=== PATIENT | female | born 1960 | race African-American/Black ===

== ENCOUNTER 2019-07-07 16:16 | Observation (INO) | payer MEDICARE ==
[~2019-07-07] VITALS: Ht 172.7 cm; Wt 190.5 kg
--- NOTE | 2019-07-07 17:24 | Diagnostic Imaging Report ---
Chest, single frontal view History: Weakness Comparison: No comparisons available for review IMPRESSION: The heart is within normal limits of size. The mediastinal and hilar contours are unremarkable. There is no focal consolidation, pleural effusion, or pneumothorax. No acute osseous abnormalities. Signed by: Alok Zamora MD on 07/07/2019 5:22 PM
--- NOTE | 2019-07-07 17:26 | Diagnostic Imaging Report ---
CT BRAIN WO HISTORY: Bilateral lower extremity weakness COMPARISON: None. TECHNIQUE: Noncontrast axial scans were obtained from skull base to the vertex. Coronal and sagittal reconstructions obtained from the axial data. One or more of the following dose reduction techniques were used: Automated exposure control, adjustment of the mA and/or kV according to patient size, and/or utilization of iterative reconstruction technique. Motion and beam hardening artifacts obscure some details. DISCUSSION: Scalp/Skull: Unremarkable. Brain sulci: Appropriate for patient's age. Ventricles: Normal in size and configuration. No hydrocephalus. Extra-axial spaces: No masses or fluid collections. Mild carotid siphon calcifications are present. Parenchyma: No abnormal densities. No mass, hemorrhage, or large vascular territory acute infarct. Dural sinuses: No abnormal densities. Sellar/Suprasellar region: Intact. Skull base: Intact. Incidental findings: None. IMPRESSION: No acute intracranial abnormalities. Signed by: Dr. Jan Zhou M.D. on 07/07/2019 5:23 PM
[2019-07-07] MEDS ORDERED: PIPER-TAZ 3.375 GM 50 ML IV SCH (18:00)
[2019-07-07 18:55] LABS: BASOPHILS % 0.5 % (0.0-1.0); EOSINOPHILS # (AUTO) 0.1 (0.0-0.4); EOSINOPHILS % 0.8 % (0.0-6.0); HEMOGLOBIN 9.5 g/dL (12.0-16.0); LYMPHOCYTES % 22.9 % (18.0-39.1); MEAN CORPUSCULAR HEMOGLOBIN 28.9 pg (28-32); MEAN CORPUSCULAR HGB CONC 32.8 g/dL (31-35); MEAN CORPUSCULAR VOLUME 88.1 fL (81-99); MONOCYTES # (AUTO) 1.2 (0.2-0.8); NEUTROPHILS # (AUTO) 5.5 (2.1-6.9); NEUTROPHILS % 62.5 % (38.7-80.0); PLATELET COUNT 321 x10e3/uL (140-360); RED BLOOD COUNT 3.29 x10e6/uL (3.6-5.1); RED CELL DISTRIBUTION WIDTH 14.3 % (11.7-14.4)
[2019-07-07 19:14] LABS: ALANINE AMINOTRANSFERASE 18 IU/L (0-55); ALBUMIN 2.8 g/dL (3.5-5.0); ALBUMIN/GLOBULIN RATIO 0.8 (0.8-2.0); ALKALINE PHOSPHATASE 134 IU/L (40-150); ANION GAP 12.5 mmol/L (8-16); BLOOD UREA NITROGEN 11 mg/dL (7-26); BUN/CREATININE RATIO 10 (6-25); CALCIUM 8.4 mg/dL (8.4-10.2); CARBON DIOXIDE 24 mmol/L (22-29); CHLORIDE 98 mmol/L (98-107); CREATININE, SERUM 1.05 mg/dL (0.57-1.11); EST GLOMERULAR FILTRATION RATE > 60 ML/MIN (60-); GLUCOSE 111 mg/dL (74-118); POTASSIUM 3.5 mmol/L (3.5-5.1); SODIUM 131 mmol/L (136-145)
[2019-07-07] MEDS ORDERED: BALSAM PERU/CASTOR OIL 60 GM OINT...G. TP STA (20:35)
[2019-07-07] MEDS ORDERED: NYSTATIN 15 GM POWDER UD BTL TOP SCH (21:00)
[2019-07-07 21:27] LABS: BILIRUBIN,URINE NEGATIVE (NEGATIVE); CLARITY,URINE CLEAR (CLEAR); COLOR,URINE YELLOW (YELLOW); KETONES,URINE NEGATIVE (NEGATIVE); LEUKOCYTE ESTERASE ,URINE NEGATIVE (NEGATIVE); NITRITE,URINE NEGATIVE (NEGATIVE); PROTEIN,URINE DIPSTICK NEGATIVE (NEGATIVE); URINE UROBILINOGEN 0.2 mg/dL (0.2 - 1)
[2019-07-07 21:35] LABS: EPITHELIAL CELLS,URINE RARE /LPF
--- NOTE | 2019-07-07 22:08 | NUR ---
PT BROUGHT TAKEN TO RADI[facility] FOR CT CHEST AT THIS TIME. ON ARRIVAL TO [facility], PT DENIED TEST AT THIS TIME. PT BROUGHT BACK TO ER. ER MD NOTIFIED AND AWARE. THIS RN AND Wilian RUIZ RN AT BEDSIDE DISCUSSING RISKS OF NOT RECEIVING TEST. PT VERBALIZED UNDERSTANDING AND AGREED TO HAVING CT PERFORMED. ER MD NOTIFIED AND AWARE. NAD NOTED AT THIS TIME.
[2019-07-07 22:52] LABS: INR 1.08; PROTHROMBIN TIME 14.7 seconds (11.9-14.5)
[2019-07-07] MEDS ORDERED: SODIUM CHLORIDE 0.9% 500ML 500 ML IV ONE (23:15)
[2019-07-07 23:19] LABS: CREATINE KINASE 1773 IU/L (29-168)
[2019-07-07] MEDS ORDERED: RIVAROXABAN 15 MG TABLET PO STA (23:24)
[2019-07-08] MEDS ORDERED: PIPER-TAZ 3.375 GM 50 ML IV SCH
--- NOTE | 2019-07-08 00:10 | NUR ---
PT TRANSPORTED BY EXECUTIVE VICE PRESIDENT AND RADIOLOGY TECHS TO RADIOLOGY DEPARTMENT. NAD NOTED AT THIS TIME. PT PLACED SAFELY ON SCANNING TABLE. PT TOLERATED CT SCAN.
[2019-07-08] MEDS ORDERED: SODIUM CHLORIDE 0.9% 1000ML 2,000 ML ONE (03:09)
[2019-07-08] MEDS ORDERED: SODIUM CHLORIDE 0.9% 1000ML 1,000 ML IV STA ×2 (03:20)
[2019-07-08] MEDS ORDERED: IOPAMIDOL 370 MG/ML 200 ML INFUS..BTL INJ ONE (07:01)
[2019-07-08] MEDS ORDERED: SODIUM CHLORIDE 0.9% 50ML 50 ML ONE (07:01)
--- NOTE | 2019-07-08 07:08 | NUR ---
REPORT GIVEN TO [facility] NURSEWilian RN.
--- NOTE | 2019-07-08 07:08 | NUR ---
report received from Fabi HA
--- NOTE | 2019-07-08 07:10 | NUR ---
PT PLACED ON EXTERNAL URINARY CATHETER. PT DENIES PAIN AT THIS TIME. PT IS LAYING IN HOSPITAL BED. NAD NOTED AT THIS TIME. V/S STABLE. BED IS LOCKED AND IN LOWEST POSITION. CALL LIGHT IS IN REACH IF IN NEED FOR ASSISTANCE.
--- NOTE | 2019-07-08 07:15 | NUR ---
incontinence care provided for patient. Patient given clean incontinence pad and gown.
[2019-07-08 07:19] LABS: CREATINE KINASE MB 1.1 ng/mL (0-5.0)
--- NOTE | 2019-07-08 07:38 | Diagnostic Imaging Report ---
EXAM: CT Chest WITH contrast (PE protocol) 07/07/2019 9:26 PM INDICATION: Weakness, hypertension, pain COMPARISON: None TECHNIQUE: Chest was scanned utilizing a multidetector helical scanner from the lung apex through the level of the adrenal glands with administration of IV contrast. Coronal and sagittal reformations were obtained. Departmental PE protocol was performed. IV CONTRAST: 100 mL of Isovue 370 COMPLICATIONS: None RADIATION DOSE: Total DLP: 551 mGy*cm Estimated effective dose: (DLP x 0.014 x size factor) mSv CTDIvol has been reviewed. It is below the limits set by the Radiation Protocol Committee (RPC). Dose modulation, iterative reconstruction, and/or weight based adjustment of the mA/kV was utilized to reduce the radiation dose to as low as reasonably achievable. FINDINGS: LINES/ TUBES: None. LUNGS AND AIRWAYS: No pulmonary arterial filling defect. The lungs are unremarkable. Airways are normal. PLEURA: The pleural spaces are clear. HEART AND MEDIASTINUM: The thyroid gland is normal. No mediastinal, hilar or axillary lymphadenopathy. The heart is normal in size. There is no pericardial effusion. Calcifications of the aorta and major branches including the coronary arteries. UPPER ABDOMEN: Partially visualized gastric bypass surgical changes appear intact. Cholecystectomy clips. BONES: There are degenerative changes in the thoracic spine. SOFT TISSUES: Unremarkable. IMPRESSION: No pulmonary embolus. Coronary artery calcific atherosclerosis.. Signed by: [place] Ma DO on 07/08/2019 7:35 AM
--- NOTE | 2019-07-08 09:30 | NUR ---
WENT TO ED TO SEE PT PER REQUEST, SPOKE WITH PT SHE HAS [facility] AND STATES THEY ARE WORKING ON TRYING TO GET APPROVAL FOR INPATIENT STAY TO GET HER STRONGER SINCE SHE IS FAILING OUTPT WITH THEIR HOME HEALTH. SPOKE WITH NURSE KIRAN [phone] AND STATES NEED AN ORDER FROM THAT STATES [facility] FOR INPATIENT REHABILITATION SERVICES. LET ED KNOW, WILL PUT IN ORDER AND WILL FAX TO [phone]
--- OUTSIDE RECORDS SUMMARY | 2019-07-08 09:51 | XMS REPORT ---
Author Author [facility] Organization [facility] Address Unknown Phone Unavailable Care Team Providers Care Stock Patch Sawyer Name Role Phone MEJIA CHAD Unavailable Unavailable DELVIN ROBB Unavailable Unavailable Payers Payer Name Policy Type Policy Number Effective Date Expiration Date Problems This patient has no known problems. Allergies, Adverse Reactions, Alerts Allergy Name Allergy Type Status Severity Reaction(s) Onset Date Inactive Date Treating Clinician Comments Penicillins DA Active SV 2019-03-22 00:00:00 Medications This patient has no known medications. Results Test Description Test Time Test Comments Text Results Atomic Results Result Comments CT CHEST W 2019-07-08 07:31:00 [facility] [address] [place], [place] [address] Patient Name: GALLO STOVER MR #: [id number] : 1960 Age/Sex: 58/F Req #: [id number] Adm Physician: Ordered by: ZHANG WILSON DO Report #: [id number] Location: ER Room/Bed: Procedure: [id number] CT/CT CHEST W Exam Date: 07/07/19 Exam Time: 9 REPORT STATUS: Signed EXAM: CT Chest WITH contrast (PE protocol) 07/07/2019 9:26 PM IN DICATION: Weakness, hypertension, pain COMPARISON: None TECHNIQUE: Chest was scanned utilizing a multidetector helical scanner from the lung apex through the level of the adrenal glands with administration of IV contrast. Coronal and sagittal reformations were obtained. Departmental PE protocol was performed. IV CONTRAST: 100 mL of Isovue 370 COMPLICATIONS: None RADIATION DOSE: Total DLP: 551 mGy*cm Estimated effective dose: (DLP x 0.014 x size factor) mSv CTDIvol has been reviewed. It is below the limits set by the Radiation Protocol Committee (RPC). Dose modulation, iterative reconstruction, and/or weight based adjustment of the mA/kV was utilized to reduce the radiation dose to as low as reasonably achievable. FINDINGS: LINES/ TUBES: None. LUNGS AND AIRWAYS: No pulmonary arterial filling defect. The lungs are unremarkable. Airways are normal. PLEURA: The pleural spaces are clear. HEART AND MEDIASTINUM: The thyroid gland is normal. No mediastinal, hilar or axillary lymphadenopathy. The heart is normal in size. There is no pericardial effusion. Calcifications of the aorta and major branches including the coronary arteries. UPPER ABDOMEN: Partially visualized gastric bypass surgical changes appear intact. Cholecystectomy clips. BONES: There are degenerative changes in the thoracic spine. SOFT TISSUES: Unremarkable. IMPRESSION: No pulmonary embolus. Coronary artery calcific atherosclerosis.. Signed by: Indio Bass DO on 07/08/2019 7:35 AM Dictated By: INDIO BASS DO 0735 Transcribed By: GIN on 07/08/1931 COPY TO: ZHANG WILSON DO CT BRAIN WO 2019-07-07 17:22:00 [place] [address] Patient Name: GALLO STOVER MR #: [id number] : 12/23/1970 Age/Sex: 48/F Req #: [id number] Adm Physician: Ordered by: CHAD MEJIA DO Report #: [id number] Location: ER Room/Bed: Procedure: [id number] CT/CT BRAIN WO Exam Date: Exam Time: REPORT STATUS: Signed CT BRAIN WO HISTORY: Bilateral lower extremity weakness COMPARISON: None. TECHNIQUE: Noncontrast axial scans were obtained from skull base to the vertex. Coronal and sagittal reconstructions obtained from the axial data. One or more of the following dose reduction techniques were used: Automated exposure control, adjustment of the mA and/or kV according to patient size, and/or utilization of iterative reconstruction technique. Motion and beam hardening artifacts obscure some details. DISCUSSION: Scalp/Skull: Unremarkable. Brain sulci: Appropriate for patient's age. Ventricles: Normal in size and configuration. No hydrocephalus. Extra-axial spaces: No masses or fluid collections. Mild carotid siphon calcifications are present. Parenchyma: No abnormal densities. No mass, hemorrhage, or large vascular territory acute infarct. Dural sinuses: No abnormal densities. Sellar/Suprasellar region: Intact. Skull base: Intact. Incidental findings: None. IMPRESSION: No acute intracranial abnormalities. Signed by: Dr. Jan Zhou M.D. on 07/07/2019 5:23 PM Dictated By: JAN ZHOU MD 22 Transcribed By: GIN on 07/07/191722 COPY TO: CHAD MEJIA DO CHEST SINGLE (NOT PORTABLE) 2019-07-07 17:21:00 [place] [address] Patient Name: GALLO STOVER MR #: [id number] : 12/23/1970 Age/Sex: 48/F Req #: [id number] Adm Physician: Ordered by: CHAD MEJIA DO Report #: [id number] Location: ER Room/Bed: Procedure: [id number] DX/CHEST SINGLE (NOT PORTABLE) Exam Date: 07/07/19 Exam Time: 1709 REPORT STATUS: Signed Chest, single frontal view History: Weakness Comparison: No comparisons available for review IMPRESSION: The heart is within normal limits of size. The mediastinal and hilar contours are unremarkable. There is no focal consolidation, pleural effusion, or pneumothorax. No acute osseous abnormalities. Signed by: Alok Kerr MD on 07/07/2019 5:22 PM Dictated By: ALOK KERR MD 21 Transcribed By: GIN on 07/07/191721 COPY TO: CHAD MEJIA DO BASIC METABOLIC PANEL 2019-03-25 02:41:00 SODIUM (test code=NA) 140 mmol/L 136-145 POTASSIUM (test code=K) 3.8 mmol/L 3.5-5.1 CHLORIDE (test code=CL) 111.0 mmol/L 98-107 CARBON DIOXIDE (test code=CO2) 21.0 mmol/L 21-32 ANION GAP (test code=GAP) 11.8 10-20 GLUCOSE (test code=GLU) 113 mg/dL 74-106 BLOOD UREA NITROGEN (test code=BUN) 16 mg/dL 7-18 GLOMERULAR FILTRATION RATE (test code=GFR) 51 mL/min >=60 Estimated GFR by using Modified MDRD formula.Chronic kidney disease is defined as either kidney damageor GFR <60 mL/min/1.73 m2 for >3 months. CREATININE (test code=CREAT) 1.30 mg/dL 0.55-1.02 Note change in reference range due to change in reagent. BUN/CREATININE RATIO (test code=BUN/CREA) 12.4 10-20 CALCIUM (test code=CA) 8.5 mg/dL 8.5-10.1 BASIC METABOLIC [id number] 02:35:00* Test Item Value Reference Range Comments SODIUM (test code=NA) 140 mmol/L 136-145 POTASSIUM (test code=K) 3.8 mmol/L 3.5-5.1 CHLORIDE (test code=CL) 111.0 mmol/L 98-107 CARBON DIOXIDE (test code=CO2) mmol/L 21-32 ANION GAP (test code=GAP) 10-20 GLUCOSE (test code=GLU) mg/dL 74-106 BLOOD UREA NITROGEN (test code=BUN) mg/dL 7-18 GLOMERULAR FILTRATION RATE (test code=GFR) mL/min >=60 CREATININE (test code=CREAT) mg/dL 0.55-1.02 BUN/CREATININE RATIO (test code=BUN/CREA) 10-20 CALCIUM (test code=CA) mg/dL 8.5-10.1 CBC W/AUTO [id number] 02:27:00* Test Item Value Reference Range Comments WHITE BLOOD CELL (test code=WBC) 6.0 K/mm3 4.5-12.5 RED BLOOD CELL (test code=RBC) 3.01 mill/mm3 3.7-5.2 HEMOGLOBIN (test code=HGB) 9.0 gram/dL 11.5-15.5 HEMATOCRIT (test code=HCT) 28.9 % 36.0-46.0 MEAN CELL VOLUME (test code=MCV) 96.0 fL 80-98 MEAN CELL HGB (test code=MCH) 29.9 picogram 27.0-33.0 MEAN CELL HGB CONCETRATION (test code=MCHC) 31.1 gram/dL 33.0-36.0 RED CELL DISTRIBUTION WIDTH (test code=RDW) 13.7 % 11.6-16.2 RED CELL DISTRIBUTION WIDTH SD (test code=RDW-SD) 48.9 fL 37.0-51.0 PLATELET COUNT (test code=PLT) 260 K/mm3 150-450 MEAN PLATELET VOLUME (test code=MPV) 9.5 fL 6.7-11.0 NEUTROPHIL % (test code=NT%) 41.5 % 39.0-69.0 IMMATURE GRANULOCYTE % (test code=IG%) 0.2 % 0.0-5.0 LYMPHOCYTE % (test code=LY%) 43.0 % 25.0-55.0 MONOCYTE % (test code=MO%) 12.6 % 0.0-10.0 EOSINOPHIL % (test code=EO%) 2.2 % 0.0-5.0 BASOPHIL % (test code=BA%) 0.5 % 0.0-1.0 NUCLEATED RBC % (test code=NRBC%) 0.0 % 0-0 NEUTROPHIL # (test code=NT#) 2.47 K/mm3 1.8-7.7 IMMATURE GRANULOCYTE # (test code=IG#) 0.01 x10 3/uL 0-0.03 LYMPHOCYTE # (test code=LY#) 2.56 K/mm3 1.0-5.0 MONOCYTE # (test code=MO#) 0.75 K/mm3 0-0.8 EOSINOPHIL # (test code=EO#) 0.13 K/mm3 0.0-0.5 BASOPHIL # (test code=BA#) 0.03 K/mm3 0.0-0.2 NUCLEATED RBC # (test code=NRBC#) 0.00 K/mm3 0.0-0.1 MANUAL DIFF REQUIRED (test code=MDIFF) NO - MRI L-SPINE W/O [id number] 09:44:00 FAX: Stacy Walker MSN [place]: St: [facility] FAX: Merrill Hall MD [phone] Name: GALLO STOVER [facility] : 1960 Age/S: 58/F [address] Unit #: [id number] Loc: V.[address] [place], [place] [address] Phys: Stacy Walker MSN Acct: [id number] Dis Date: Status: ADM IN PHONE #: [phone] Exam Date: 03/24/2019 0900 FAX #: [phone] Reason: back pain, s/p fall EXAMS: CPT CODE: [id number] MRI L-SPINE W/O CONT 58882 HISTORY: back pain, s/p fall TECHNIQUE: Sagittal T2, sagittal T1, sagittal STIR, axial T1, and axial T2 sequences of the lumbar spine acquired without contrast. COMPARISON: None FINDINGS: Vertebral body alignment is satisfactory. There is height loss of the L3- L5 vertebral bodies as well as the L4-L5 and L5-S1 discs. Marrow signal is unremarkable. The conus medullaris terminates at the 1. level. No paraspinal or prevertebral soft tissue abnormality. T12-L1: No disc bulge or protrusion. No central canal or foraminal stenosis. L1-L2: No disc bulge or protrusion. No central canal or foraminal stenosis. L2-L3: No disc bulge or protrusion. No central canal or foraminal stenosis. Mild facet hypertrophy. L3-L4: Broad- based disc bulge with bilateral facet hypertrophy causes moderate narrow ing of the central canal and right foramen as well as severe narrowing of the left foramen. The left L3 nerve root appears to contact the facet as w ell as the bulging disc. L4-L5: Broad-based disc bulge causes mild narrowing of the central canal as well as severe narrowing of the right f oramen and moderate to severe narrowing of the left foramen. The right L4 nerve root appears to contact the bulging disc and the hypertrophied facet . L5-S1: Facet hypertrophy with broad-based disc bulge causes mild narrowing of the central canal and severe right-sided and moderate to severe left-sided foraminal narrowing. The right L5 nerve root appears to contact the bulging disc. IMPRESSION: Dege nerative changes of the lumbar spine with multilevel disc bulge. This ca uses multiple areas of foraminal stenosis and narrowing of the spinal ca nal as described above. Correlate clinically for radiculopathy. No marrow edema in the lumbar spine to suggest an acute fracture. PAGE 1 Signed Report (CONTINUED) FAX: Stacy Warren [place]: St: ADM FAX: Peterson Hall MD [phone] Name: GALLO STOVER : 1960 Age/S: 58/F [address] [facility] Unit #: [id number] Loc: V[address] [place] [address] Phys: Stacy Walker MSN Acct: [id number] Dis Date: Status: ADM IN PHONE #: [phone] Exam Date: 03/24/2019 0900 FAX #: [phone] Reason: back pain, s/p fall EXAMS: CPT CODE: [id number] MRI L-SPINE W/O CONT 64189 < Continued> Additionally no subluxation is seen. Location: [facility] at 0944 Reported and signed by: Jayy Voss MD CC: Stacy Walker MSN; Merrill Hall MD Technologist: FEDERICO MORSERT - MRI Trnrird Date/Time/By: 03/24/2019 (0905) : By: [email or web address] [facility] Print D/T: S: 03/24/2019 (8995) PAGE 2 Signed Report CBC W/AUTO [id number] 02:12:00* Test Item Value Reference Range Comments WHITE BLOOD CELL (test code=WBC) 6.7 K/mm3 4.5-12.5 RED BLOOD CELL (test code=RBC) 3.06 mill/mm3 3.7-5.2 HEMOGLOBIN (test code=HGB) 9.0 gram/dL 11.5-15.5 HEMATOCRIT (test code=HCT) 29.5 % 36.0-46.0 MEAN CELL VOLUME (test code=MCV) 96.4 fL 80-98 MEAN CELL HGB (test code=MCH) 29.4 picogram 27.0-33.0 MEAN CELL HGB CONCETRATION (test code=MCHC) 30.5 gram/dL 33.0-36.0 RED CELL DISTRIBUTION WIDTH (test code=RDW) 14.1 % 11.6-16.2 RED CELL DISTRIBUTION WIDTH SD (test code=RDW-SD) 49.6 fL 37.0-51.0 PLATELET COUNT (test code=PLT) 272 K/mm3 150-450 MEAN PLATELET VOLUME (test code=MPV) 9.3 fL 6.7-11.0 NEUTROPHIL % (test code=NT%) 46.4 % 39.0-69.0 IMMATURE GRANULOCYTE % (test code=IG%) 0.3 % 0.0-5.0 LYMPHOCYTE % (test code=LY%) 38.8 % 25.0-55.0 MONOCYTE % (test code=MO%) 12.7 % 0.0-10.0 EOSINOPHIL % (test code=EO%) 1.2 % 0.0-5.0 BASOPHIL % (test code=BA%) 0.6 % 0.0-1.0 NUCLEATED RBC % (test code=NRBC%) 0.0 % 0-0 NEUTROPHIL # (test code=NT#) 3.10 K/mm3 1.8-7.7 IMMATURE GRANULOCYTE # (test code=IG#) 0.02 x10 3/uL 0-0.03 LYMPHOCYTE # (test code=LY#) 2.59 K/mm3 1.0-5.0 MONOCYTE # (test code=MO#) 0.85 K/mm3 0-0.8 EOSINOPHIL # (test code=EO#) 0.08 K/mm3 0.0-0.5 BASOPHIL # (test code=BA#) 0.04 K/mm3 0.0-0.2 NUCLEATED RBC # (test code=NRBC#) 0.00 K/mm3 0.0-0.1 MANUAL DIFF REQUIRED (test code=MDIFF) NO BASIC METABOLIC [id number] 02:12:00* Test Item Value Reference Range Comments SODIUM (test code=NA) 142 mmol/L 136-145 POTASSIUM (test code=K) 4.1 mmol/L 3.5-5.1 CHLORIDE (test code=CL) 112.0 mmol/L 98-107 CARBON DIOXIDE (test code=CO2) 21.0 mmol/L 21-32 ANION GAP (test code=GAP) 13.1 10-20 GLUCOSE (test code=GLU) 103 mg/dL 74-106 BLOOD UREA NITROGEN (test code=BUN) 21 mg/dL 7-18 GLOMERULAR FILTRATION RATE (test code=GFR) 42 mL/min >=60 Estimated GFR by using Modified MDRD formula.Chronic kidney disease is defined as either kidney damageor GFR <60 mL/min/1.73 m2 for >3 months. CREATININE (test code=CREAT) 1.30 mg/dL 0.55-1.02 Note change in reference range due to change in reagent. BUN/CREATININE RATIO (test code=BUN/CREA) 15.9 10-20 CALCIUM (test code=CA) 8.6 mg/dL 8.5-10.1 LIPID PROFILE (CORONARY RISK)2019-03-24 02:12:00* Test Item Value Reference Range Comments TRIGLYCERIDES (test code=TRIG) 81 mg/dL 20-150 CHOLESTEROL (test code=CHOL) 170 mg/dL 0-200 CHOLESTEROL/HDL RATIO (test code=CHOLHDL) 3.0 RATIO 0-4.9 RISK ASSOCIATED WITH CHOL/HDL RATIOS: Risk Male Female1/2 AVERAGE 3.43 3.27AVERAGE 4.97 4.442X AVERAGE 9.55 7.053X AVERAGE 23.39 11.04 REFERENCE VALUE IS RELATED TO RISK LEVELS ASRECOMMENDED BY THE MANAS. HEART, LUNG, AND BLOOD INST. HDL CHOLESTEROL (test code=HDL) 48 mg/dL 40-60 LIPOPROTEIN LDL (test code=LDL) 110 mg/dL 100-129 RN PERSONNEL, CONTACT PHYSICIAN IMMEDIATELY IF THIS IS A STROKE, AMI OR CAROTID STENOSIS PATIENT WHEN THE LDL >100 (1ST OCCURENCE, THIS ADMISSION) Reference Interval: mg/dL mmol/L Optimal <100 <2.6Near/above optimal 100-129 2.6- 3.3Borderline High 130-159 3.4-4.1High 160-189 4.1-4.9Very High >=190 >=4.9=========This LDL result is a direct measurement.========= [id number] 02:12:00* Test Item Value Reference Range Comments MAGNESIUM (test code=MAG) 2.4 mg/dL 1.8-2.4 BASIC METABOLIC [id number] 02:04:00* Test Item Value Reference Range Comments SODIUM (test code=NA) 142 mmol/L 136-145 POTASSIUM (test code=K) 4.1 mmol/L 3.5-5.1 CHLORIDE (test code=CL) 112.0 mmol/L 98-107 CARBON DIOXIDE (test code=CO2) mmol/L 21-32 ANION GAP (test code=GAP) 10-20 GLUCOSE (test code=GLU) mg/dL 74-106 BLOOD UREA NITROGEN (test code=BUN) mg/dL 7-18 GLOMERULAR FILTRATION RATE (test code=GFR) mL/min >=60 CREATININE (test code=CREAT) mg/dL 0.55-1.02 BUN/CREATININE RATIO (test code=BUN/CREA) 10-20 CALCIUM (test code=CA) mg/dL 8.5-10.1 LIPID PROFILE (CORONARY RISK)2019-03-24 02:04:00* Test Item Value Reference Range Comments TRIGLYCERIDES (test code=TRIG) mg/dL 20-150 CHOLESTEROL (test code=CHOL) mg/dL 0-200 CHOLESTEROL/HDL RATIO (test code=CHOLHDL) RATIO 0-4.9 HDL CHOLESTEROL (test code=HDL) mg/dL 40-60 LIPOPROTEIN LDL (test code=LDL) mg/dL 100-129 [id number] 02:04:00* Test Item Value Reference Range Comments MAGNESIUM (test code=MAG) mg/dL 1.8-2.4 BASIC METABOLIC [id number] 05:15:00* Test Item Value Reference Range Comments SODIUM (test code=NA) 141 mmol/L 136-145 POTASSIUM (test code=K) 5.3 mmol/L 3.5-5.1 CHLORIDE (test code=CL) 111.0 mmol/L 98-107 CARBON DIOXIDE (test code=CO2) 24.0 mmol/L 21-32 ANION GAP (test code=GAP) 11.3 10-20 GLUCOSE (test code=GLU) 100 mg/dL 74-106 BLOOD UREA NITROGEN (test code=BUN) 26 mg/dL 7-18 GLOMERULAR FILTRATION RATE (test code=GFR) 33 mL/min >=60 Estimated GFR by using Modified MDRD formula.Chronic kidney disease is defined as either kidney damageor GFR <60 mL/min/1.73 m2 for >3 months. CREATININE (test code=CREAT) 1.60 mg/dL 0.55-1.02 Note change in reference range due to change in reagent. BUN/CREATININE RATIO (test code=BUN/CREA) 15.9 10-20 CALCIUM (test code=CA) 8.9 mg/dL 8.5-10.1 BASIC METABOLIC [id number] 05:10:00* Test Item Value Reference Range Comments SODIUM (test code=NA) 141 mmol/L 136-145 POTASSIUM (test code=K) 5.3 mmol/L 3.5-5.1 CHLORIDE (test code=CL) 111.0 mmol/L 98-107 CARBON DIOXIDE (test code=CO2) mmol/L 21-32 ANION GAP (test code=GAP) 10-20 GLUCOSE (test code=GLU) mg/dL 74-106 BLOOD UREA NITROGEN (test code=BUN) mg/dL 7-18 GLOMERULAR FILTRATION RATE (test code=GFR) mL/min >=60 CREATININE (test code=CREAT) mg/dL 0.55-1.02 BUN/CREATININE RATIO (test code=BUN/CREA) 10-20 CALCIUM (test code=CA) mg/dL 8.5-10.1 CBC W/AUTO [id number] 04:53:00* Test Item Value Reference Range Comments WHITE BLOOD CELL (test code=WBC) 5.7 K/mm3 4.5-12.5 RED BLOOD CELL (test code=RBC) 3.09 mill/mm3 3.7-5.2 HEMOGLOBIN (test code=HGB) 9.4 gram/dL 11.5-15.5 HEMATOCRIT (test code=HCT) 28.7 % 36.0-46.0 MEAN CELL VOLUME (test code=MCV) 92.9 fL 80-98 MEAN CELL HGB (test code=MCH) 30.4 picogram 27.0-33.0 MEAN CELL HGB CONCETRATION (test code=MCHC) 32.8 gram/dL 33.0-36.0 RED CELL DISTRIBUTION WIDTH (test code=RDW) 13.6 % 11.6-16.2 RED CELL DISTRIBUTION WIDTH SD (test code=RDW-SD) 46.7 fL 37.0-51.0 PLATELET COUNT (test code=PLT) 311 K/mm3 150-450 MEAN PLATELET VOLUME (test code=MPV) 9.4 fL 6.7-11.0 NEUTROPHIL % (test code=NT%) 55.0 % 39.0-69.0 IMMATURE GRANULOCYTE % (test code=IG%) 0.4 % 0.0-5.0 LYMPHOCYTE % (test code=LY%) 33.5 % 25.0-55.0 MONOCYTE % (test code=MO%) 9.5 % 0.0-10.0 EOSINOPHIL % (test code=EO%) 1.1 % 0.0-5.0 BASOPHIL % (test code=BA%) 0.5 % 0.0-1.0 NUCLEATED RBC % (test code=NRBC%) 0.0 % 0-0 NEUTROPHIL # (test code=NT#) 3.13 K/mm3 1.8-7.7 IMMATURE GRANULOCYTE # (test code=IG#) 0.02 x10 3/uL 0-0.03 LYMPHOCYTE # (test code=LY#) 1.90 K/mm3 1.0-5.0 MONOCYTE # (test code=MO#) 0.54 K/mm3 0-0.8 EOSINOPHIL # (test code=EO#) 0.06 K/mm3 0.0-0.5 BASOPHIL # (test code=BA#) 0.03 K/mm3 0.0-0.2 NUCLEATED RBC # (test code=NRBC#) 0.00 K/mm3 0.0-0.1 MANUAL DIFF REQUIRED (test code=MDIFF) NO [id number] 22:23:00* Test Item Value Reference Range Comments GLYCOSYLATED HEMOGLOBIN (HA1C) (test code=GLYHGB) 5.8 % HbA1 4.8-6.0 ESTIMATED AVERAGE GLUCOSE (test code=EAG) 120 MG/DL - XR PELVIS 1/2 [id number] 15:26:00 FAX: Delroy Alvarez [phone] [place]: [place] St: REG Name: GALLO BURRIS [facility] FSED : [birth year] Age/S: 58/F [address] Unit #: [id number] Loc: [facility] [address] Phys: Delroy Alvarez MD [place], [place] [address] Acct: [id number] Dis Date: Status: REG ER PHONE #: Exam Date: 03/22/2019 8983 FAX #: Reason: fall EXAMS: CPT CODE: [id number] XR PELVIS 1/2 VIEWS [id number] HISTORY: fall EXAM: AP pelvis Comparison: None FINDINGS: No acute fracture of the bony pelvis. No diastases of the SI mega ints or pubic symphysis. Hip joints are not dislocated. However t here is narrowing of the superior margins of the hip joints with subchondr al sclerotic changes in the bilateral acetabulum. Proximal f emurs are intact. Degenerative changes are present in the visuali zed spine. IMPRESSION: Degenerative changes in the hips and lum bar spine but no fracture or malalignment. Location: [facility] at 1526 Reported and signed by: Jayy Voss MD CC: Delroy Alvarez MD Technologist: LAURENCE PATTERSON RT(R)(CT) Trnscrd Date/Time/By: 03/22/2019 (6 227) : By: [email or web address] Orig Print D/T: S: 03/22/2019 (9957) PAGE 1 Signed Report - XR SHOULDER 2 + V [id number] 15:24:00 FAX: Delroy Alvarez [phone] [place]: [place] St: REG Name: GALLO BURRIS [facility] FSED : [birth year] Age/S: 58/F [address] Unit #: [id number] Loc: [facility] [address] Phys: Delroy Alvarez MD [place], [place] [address] Acct: [id number] Dis Date: Status: REG ER PHONE #: Exam Date: 03/22/2019 1201 FAX #: Reason: fall EXAMS: CPT CODE: [id number] XR SHOULDER 2 + [place] [address] HISTORY: fall TECHN IQUE: Internal/external rotation AP and scapular Y-views of the right shou lder. FINDINGS: No acute fracture. There are degenerative changes in the acromion clavicular joint and on the humeral head. There are also degenerative changes throughout the spine. Regional soft tissues are unremarkable. Visualized th orax is within normal limits. IMPRESSION: Degenerative c hanges of the right shoulder but no fracture or malalignment. Location: [facility] Electronically Signed by Jayy Voss MD on at 1524 Reported and signed by: Jayy Voss MD CC: Delroy Alvarez MD [place] hnologist: LAURENCE FINCH RT(R)(CT) Trnscrd Date/T pily/By: 03/22/2019 (1524) : By: [email or web address] [facility] Print D/T: S: 9 (5178) PAGE 1 Signed Report URINALYSIS [id number] 14:56:00* Test Item Value Reference Range Comments UA COLOR (test code=COLU) YELLOW YELLOW UA APPEARANCE (test code=APPU) SLIGHT HAZY CLEAR UA GLUCOSE DIPSTICK (test code=DGLUU) NEGATIVE mg/dL NEGATIVE UA BILIRUBIN DIPSTICK (test code=BILU) NEGATIVE NEGATIVE UA KETONE DIPSTICK (test code=KETU) NEGATIVE mg/dL NEGATIVE UA SPECIFIC GRAVITY (test code=SGU) 1.010 1.001-1.035 UA BLOOD DIPSTICK (test code=IBIS) NEGATIVE NEGATIVE UA PH DIPSTICK (test code=ARNEL) 7.5 5.0-8.0 UA PROTEIN DIPSTICK (test code=PROU) NEGATIVE mg/dL Neg-15 UA UROBILINIOGEN DIPSTICK (test code=URO) 0.2 mg/dL 0.0-0.2 UA NITRITE DIPSTICK (test code=WILLIAM) NEGATIVE NEGATIVE UA LEUKOCYTE ESTERASE DIPSTICK (test code=LEUU) 2+ uL NEGATIVE UA MICROSCOPIC NEEDED? (test code=UAMICRO) YES UA WBC (test code=WBCU) >100 per HPF 0-5 UA RBC (test code=RBCU) 3-5 per HPF 0-5 UA EPITHELIAL CELLS (test code=EPIU) Few (2-5/hpf) per HPF Few UA BACTERIA (test code=BACU) MODERATE per HPF NONE COMPREHENSIVE METABOLIC [id number] 14:49:00* Test Item Value Reference Range Comments SODIUM (test code=NA) 138 mmol/L 128-145 POTASSIUM (test code=K) 4.8 mmol/L 3.5-5.1 CHLORIDE (test code=CL) 103.0 mmol/L 98-107 CARBON DIOXIDE (test code=CO2) 25.0 mmol/L 22-29 ANION GAP (test code=GAP) 15 mmol/L 10-20 GLUCOSE (test code=GLU) 116 mg/dL 70-110 BLOOD UREA NITROGEN (test code=BUN) 29 mg/dL 7-22 CREATININE (test code=CREAT) 1.68 mg/dL 0.55-1.3 BUN/CREATININE RATIO (test code=BUN/CREA) 17.3 10-20 TOTAL PROTEIN (test code=PROT) 7.0 gram/dL 6.1-7.8 ALBUMIN (test code=ALB) 3.5 g/dL 3.3-4.4 GLOBULIN (test code=GLOB) 3.5 G/DL 1-10 ALBUMIN/GLOBULIN RATIO (test code=A/G) 1.0 0.75-1.50 CALCIUM (test code=CA) 9.0 mg/dL 8.0-10.5 BILIRUBIN TOTAL (test code=BILT) 0.30 mg/dL 0.2-1.2 SGOT/AST (test code=AST) 24 U/L 10-39 SGPT/ALT (test code=ALT) 26 U/L 10-69 ALKALINE PHOSPHATASE TOTAL (test code=ALKP) 128 U/L 50-139 COMPREHENSIVE METABOLIC [id number] 14:44:00* Test Item Value Reference Range Comments SODIUM (test code=NA) 138 mmol/L 128-145 POTASSIUM (test code=K) 4.8 mmol/L 3.5-5.1 CHLORIDE (test code=CL) 103.0 mmol/L 98-107 CARBON DIOXIDE (test code=CO2) 25.0 mmol/L 22-29 ANION GAP (test code=GAP) 15 mmol/L 10-20 GLUCOSE (test code=GLU) 116 mg/dL 70-110 BLOOD UREA NITROGEN (test code=BUN) 29 mg/dL 7-22 CREATININE (test code=CREAT) 1.68 mg/dL 0.55-1.3 BUN/CREATININE RATIO (test code=BUN/CREA) 17.3 10-20 TOTAL PROTEIN (test code=PROT) gram/dL 6.4-8.2 ALBUMIN (test code=ALB) g/dL 3.4-5.0 GLOBULIN (test code=GLOB) G/DL 1-10 ALBUMIN/GLOBULIN RATIO (test code=A/G) 0.75-1.50 CALCIUM (test code=CA) 9.0 mg/dL 8.0-10.5 BILIRUBIN TOTAL (test code=BILT) mg/dL 0.0-1.0 SGOT/AST (test code=AST) IUnit/L 15-37 SGPT/ALT (test code=ALT) IUnit/L 12-78 ALKALINE PHOSPHATASE TOTAL (test code=ALKP) IUnit/L 45-117 URINALYSIS [id number] 14:43:00* Test Item Value Reference Range Comments UA COLOR (test code=COLU) YELLOW UA APPEARANCE (test code=APPU) CLEAR UA GLUCOSE DIPSTICK (test code=DGLUU) NEGATIVE mg/dL NEGATIVE UA BILIRUBIN DIPSTICK (test code=BILU) NEGATIVE NEGATIVE UA KETONE DIPSTICK (test code=KETU) NEGATIVE mg/dL NEGATIVE UA SPECIFIC GRAVITY (test code=SGU) 1.010 1.001-1.035 UA BLOOD DIPSTICK (test code=IBIS) NEGATIVE NEGATIVE UA PH DIPSTICK (test code=ARNEL) 7.5 5.0-8.0 UA PROTEIN DIPSTICK (test code=PROU) NEGATIVE mg/dL Neg-15 UA UROBILINIOGEN DIPSTICK (test code=URO) 0.2 mg/dL 0.0-0.2 UA NITRITE DIPSTICK (test code=WILLIAM) NEGATIVE NEGATIVE UA LEUKOCYTE ESTERASE DIPSTICK (test code=LEUU) 2+ uL NEGATIVE UA MICROSCOPIC NEEDED? (test code=UAMICRO) UA WBC (test code=WBCU) per HPF 0-5 UA RBC (test code=RBCU) per HPF 0-5 UA EPITHELIAL CELLS (test code=EPIU) per HPF Few UA BACTERIA (test code=BACU) per HPF NONE URINALYSIS [id number] 14:43:00* Test Item Value Reference Range Comments UA COLOR (test code=COLU) YELLOW UA APPEARANCE (test code=APPU) CLEAR UA GLUCOSE DIPSTICK (test code=DGLUU) NEGATIVE mg/dL NEGATIVE UA BILIRUBIN DIPSTICK (test code=BILU) NEGATIVE NEGATIVE UA KETONE DIPSTICK (test code=KETU) NEGATIVE mg/dL NEGATIVE UA SPECIFIC GRAVITY (test code=SGU) 1.010 1.001-1.035 UA BLOOD DIPSTICK (test code=IBIS) NEGATIVE NEGATIVE UA PH DIPSTICK (test code=ARNEL) 7.5 5.0-8.0 UA PROTEIN DIPSTICK (test code=PROU) NEGATIVE mg/dL Neg-15 UA UROBILINIOGEN DIPSTICK (test code=URO) 0.2 mg/dL 0.0-0.2 UA NITRITE DIPSTICK (test code=WILLIAM) NEGATIVE NEGATIVE UA LEUKOCYTE ESTERASE DIPSTICK (test code=LEUU) 2+ uL NEGATIVE UA MICROSCOPIC NEEDED? (test code=UAMICRO) UA WBC (test code=WBCU) per HPF 0-5 UA RBC (test code=RBCU) per HPF 0-5 UA EPITHELIAL CELLS (test code=EPIU) per HPF Few UA BACTERIA (test code=BACU) per HPF NONE CBC W/AUTO [id number] 14:37:00* Test Item Value Reference Range Comments WHITE BLOOD CELL (test code=WBC) 6.0 K/mm3 4.5-12.5 RED BLOOD CELL (test code=RBC) 3.38 mill/mm3 3.7-5.2 HEMOGLOBIN (test code=HGB) 10.3 gram/dL 11.5-15.5 HEMATOCRIT (test code=HCT) 31.7 % 36.0-46.0 MEAN CELL VOLUME (test code=MCV) 93.8 fL 80-98 MEAN CELL HGB (test code=MCH) 30.5 picogram 27.0-33.0 MEAN CELL HGB CONCETRATION (test code=MCHC) 32.5 gram/dL 33.0-36.0 RED CELL DISTRIBUTION WIDTH (test code=RDW) 13.1 % 11.6-16.2 RED CELL DISTRIBUTION WIDTH SD (test code=RDW-SD) 45.9 fL 37.0-51.0 PLATELET COUNT (test code=PLT) 315 K/mm3 150-450 MEAN PLATELET VOLUME (test code=MPV) 9.1 fL 6.7-11.0 NEUTROPHIL % (test code=NT%) 62.3 % 39.0-69.0 LYMPHOCYTE % (test code=LY%) 27.5 % 25.0-55.0 MONOCYTE % (test code=MO%) 8.6 % 0.0-10.0 EOSINOPHIL % (test code=EO%) 0.7 % 0.0-5.0 BASOPHIL % (test code=BA%) 0.7 % 0.0-1.0 NEUTROPHIL # (test code=NT#) 3.77 K/mm3 1.8-7.7 LYMPHOCYTE # (test code=LY#) 1.66 K/mm3 1.0-5.0 MONOCYTE # (test code=MO#) 0.52 K/mm3 0-0.8 EOSINOPHIL # (test code=EO#) 0.04 K/mm3 0.0-0.5 BASOPHIL # (test code=BA#) 0.04 K/mm3 0.0-0.2 MANUAL DIFF REQUIRED (test code=MDIFF) NO MR, BRAIN, WITHOUT [id number] 17:22:00FINAL REPORT MRI brain without contrast INDICATION: Aphasia, stroke TECHNIQUE: Multiplanar, multisequence MR imaging of the brain was performed utilizing the following imaging sequences: Axial T2, FLAIR, GRE, and DWI; sagittal and coronal T1 COMPARISON: CT head 10/16/2017 FINDINGS:There is no acute infarct, hematoma, extra axial collection, hydrocephalus, or mass effect. No suspicious white matter disease pattern is seen. The major vascular flow voids are maintained. There are cervical spine degenerative changes and C1-2 arthropathy. The sinuses and mastoid air cells are well aerated. There is suspected right basisphenoid arrested pneumatization. The sella and orbits are unremarkable. There is frontal calvarial hyperostosis. IMPRESSION: 1. No evidence of acute infarct, hemorrhage, or hydrocephalus. 2. Cervical spine degenerative changes. Signed: Jignesh Parry MDReport Verified Date/Time: 10/17/2017 17:22:10 Reading Location: [facility] Radiology Reading Room REHENSIVE METABOLIC [id number] 06:43:00* Test Item Value Reference Range Comments TOTAL PROTEIN (BEAKER) (test whwi=252) 6.1 gm/dL 6.0-8.5 ALBUMIN (BEAKER) (test xysd=7611) 3.3 g/dL 3.5-5.0 ALKALINE PHOSPHATASE (BEAKER) (test inpj=241) 93 U/L 30-115 BILIRUBIN TOTAL (BEAKER) (test wcce=310) 0.3 mg/dL 0.1-1.3 SODIUM (BEAKER) (test ecya=250) 143 meq/L 135-148 POTASSIUM (BEAKER) (test xxix=113) 4.8 meq/L 3.5-5.5 CHLORIDE (BEAKER) (test kxsd=380) 117 meq/L 98-106 CO2 (BEAKER) (test jiap=480) 19 meq/L 20-31 BLOOD UREA NITROGEN (BEAKER) (test afcq=792) 18 mg/dL 10-26 CREATININE (BEAKER) (test auvq=872) 0.86 mg/dL 0.50-1.20 GLUCOSE RANDOM (BEAKER) (test muau=344) 101 mg/dL 70-110 CALCIUM (BEAKER) (test mtew=593) 8.8 mg/dL 8.5-10.5 AST (SGOT) (BEAKER) (test mwze=581) 16 U/L 5-40 ALT (SGPT) (BEAKER) (test icxo=689) 17 U/L 6-50 EGFR (BEAKER) (test yabx=5463) 82 mL/min/1.73 sq m ESTIMATED GFR IS NOT ACCURATE CREATININE CLEARANCE IN PREDICTING GLOMERULAR FILTRATION RATE. ESTIMATED GFR IS NOT APPLICABLE FOR DIALYSIS PATIENTS. TROPONIN [id number] 06:41:00* Test Item Value Reference Range Comments TROPONIN I (BEAKER) (test bqxp=560) < ng/mL 0.00-0.15 Troponin I (TnI) levels must be interpreted in the context of the presenting sym ptoms and the clinical findings. Elevated TnI levels indicate myocardial damage, but are not specific for ischemic heart disease. Elevated TnI levels are seen in patients with other cardiac conditions (including myocarditis and congestive h eart failure), and slight TnI elevations occur in patients with other conditions , including sepsis, renal failure, acidosis, acute neurological disease, and per sistent tachyarrhythmia.[id number] 06:36:00* Test Item Value Reference Range Comments MAGNESIUM (BEAKER) (test tggd=910) 2.5 mg/dL 1.5-3.0 CBC W/PLT COUNT & AUTO [id number] 06:33:00* Test Item Value Reference Range Comments WHITE BLOOD CELL COUNT (BEAKER) (test ursj=246) 4.9 K/ L 4.0-10.0 RED BLOOD CELL COUNT (BEAKER) (test uguo=012) 3.38 M/ L 4.00-5.00 HEMOGLOBIN (BEAKER) (test jctx=287) 10.3 GM/DL 12.0-15.0 HEMATOCRIT (BEAKER) (test qkmt=019) 30.8 % 36.0-45.0 MEAN CORPUSCULAR VOLUME (BEAKER) (test dfry=224) 91.3 fL 82.0-99.0 MEAN CORPUSCULAR HEMOGLOBIN (BEAKER) (test mdqb=019) 30.4 pg 27.0-33.0 MEAN CORPUSCULAR HEMOGLOBIN CONC (BEAKER) (test jcss=398) 33.3 GM/DL 32.0-36.0 RED CELL DISTRIBUTION WIDTH (BEAKER) (test bflb=494) 14.8 % 12.0-15.0 PLATELET COUNT (BEAKER) (test kvzo=594) 258 K/CU MM 150-430 MEAN PLATELET VOLUME (BEAKER) (test qari=621) 8.0 fL 6.5-10.5 NUCLEATED RED BLOOD CELLS (BEAKER) (test chmb=539) 0 /100 WBC 0-0 NEUTROPHILS RELATIVE PERCENT (BEAKER) (test wkfg=389) 48 % LYMPHOCYTES RELATIVE PERCENT (BEAKER) (test klno=779) 40 % MONOCYTES RELATIVE PERCENT (BEAKER) (test yopl=894) 8 % EOSINOPHILS RELATIVE PERCENT (BEAKER) (test lsye=917) 3 % BASOPHILS RELATIVE PERCENT (BEAKER) (test yiha=329) 1 % NEUTROPHILS ABSOLUTE COUNT (BEAKER) (test vswm=241) 2.40 K/ L 1.80-8.00 LYMPHOCYTES ABSOLUTE COUNT (BEAKER) (test ilrf=068) 2.00 K/ L 1.48-4.50 MONOCYTES ABSOLUTE COUNT (BEAKER) (test hqdn=161) 0.40 K/ L 0.00-1.30 EOSINOPHILS ABSOLUTE COUNT (BEAKER) (test ecyj=781) 0.20 K/ L 0.00-0.50 BASOPHILS ABSOLUTE COUNT (BEAKER) (test sfpk=953) 0.00 K/ L 0.00-0.20 URINALYSIS W/ [id number] 15:23:00* Test Item Value Reference Range Comments COLOR (BEAKER) (test sypp=782) Colorless CLARITY (BEAKER) (test kgqa=230) Clear SPECIFIC GRAVITY UA (BEAKER) (test lxmd=240) 1.011 1.001-1.035 PH UA (BEAKER) (test imuy=547) 8.0 5.0-8.0 PROTEIN UA (BEAKER) (test pfef=401) Negative Negative GLUCOSE UA (BEAKER) (test rpmr=297) Negative Negative KETONES UA (BEAKER) (test ggkm=289) Negative Negative BILIRUBIN UA (BEAKER) (test fdig=498) Negative Negative BLOOD UA (BEAKER) (test raqs=878) Negative Negative NITRITE UA (BEAKER) (test bftg=379) Negative Negative LEUKOCYTE ESTERASE UA (BEAKER) (test ghxa=047) Small Negative UROBILINOGEN UA (BEAKER) (test bhfu=961) < mg/dL 0.2-1.0 RBC UA (BEAKER) (test cajg=892) 0 /HPF WBC UA (BEAKER) (test hyvp=133) 2 /HPF BACTERIA (BEAKER) (test pbbb=700) Rare MUCUS (BEAKER) (test huce=7612) Rare SQUAMOUS EPITHELIAL (BEAKER) (test vscy=662) < /HPF SOURCE(BEAKER) (test akym=8493) HEPATIC FUNCTION [id number] 09:56:00* Test Item Value Reference Range Comments TOTAL PROTEIN (BEAKER) (test dqen=026) 7.3 gm/dL 6.0-8.5 ALBUMIN (BEAKER) (test kjnx=8607) 4.1 g/dL 3.5-5.0 BILIRUBIN TOTAL (BEAKER) (test aflm=840) 0.2 mg/dL 0.1-1.3 BILIRUBIN DIRECT (BEAKER) (test azkl=142) 0.1 mg/dL 0.0-0.5 ALKALINE PHOSPHATASE (BEAKER) (test gxcd=964) 109 U/L 30-115 AST (SGOT) (BEAKER) (test eiep=838) 21 U/L 5-40 ALT (SGPT) (BEAKER) (test urap=728) 24 U/L 6-50 RAD, CHEST, 1 VIEW, NON [id number] 09:39:00Reason for exam:->NEUROLOGIC PROBLEMIs the patient ?->NoFINAL REPORT CHEST AP PORTABLE History provided: Neurologic problems Comparison studies: None Degree of inspiration is poor. Heart size is magnified, though grossly appears within normal limits. Uncoiled thoracic aorta. Pulmonary vascularity not well assessed on this study with Limited inspiration. No focal areas of consolidation or atelectasis. Signed: Ricardo Keith MDReport Verified Date/Time: 10/16/2017 09:39:10 Reading Location: [facility] Diagnostic Imaging Reading Room - [facility] [phone] , CTANGIO [id number] 08:56:00FINAL REPORT CLINICAL HISTORY: Stroke, aphasia TECHNIQUE: Contiguous contrast-enhanced axial images through the neck followed by axial images through the head with coronal and sagittal reformations to assess the arterial circulation. CT perfusion was also performed with post processing on a workstation. 3-D reconstructions were performed using a volume rendered technique separately on a workstation. This exam was performed according to the departmental dose optimization program which includes automated exposure control, adjustment of the mA and/or kV according to the patient size, and/or use of an iterative reconstruction technique. COMPARISON: Noncontrast head CT 10/16/2017 FINDINGS: The CT angiogram images of the head reveal no evidence of intracranial aneurysm, focal stenosis, or proximal branch vessel occlusion. The major intradural venous sinuses are patent. There is no focal or hemodynamically significant stenosis in the internal carotid arteries by NASCET criteria. The bilateral vertebral artery origins are not well-seen, but the vertebral artery segments are otherwise patent without focal stenosis. The CT perfusion maps demonstrate symmetrical martín earing cerebral blood volume, mean transit time, time to peak, and cerebral bloo d flow. There are dorsal spondylitic changes in the cervical spine. There are sc attered subcentimeter lymph nodes in the neck. The visualized lung apices are cl ear. IMPRESSION: No evidence for a [place] proximal branch vessel occ lusion. No evidence of hemodynamically significant stenosis in the cervical car otid or vertebral arteries by NASCET criteria. Symmetrical appearing CT perfusio n maps. If clinically warranted, an MRI of the brain could be performed for furt her evaluation if there are no contraindications. Signed: Marc De La Garza MDReport Verified Date/Time: 10/16/2017 08:56:54 Reading Location: [facility] Reading Room , CAROTID, [id number] 08:56:00Reason for exam:->NEUROLOGIC PROBLEMIs the patient ?->UnknownWhat is the patient's sedation requirement?->No SedationFINAL REPORT CLINICAL HISTORY: Stroke, aphasia TECHNIQUE: Contiguous contrast-enhanced axial images through the neck followed by axial images through the head with coronal and sagittal reformations to assess the arterial circulation. CT perfusion was also performed with post processing on a workstation. 3-D reconstructions were performed using a volume rendered technique separately on a workstation. This exam was performed according to the departmental dose optimization program which includes automated exposure control, adjustment of the mA and/or kV according to the patient size, and/or use of an iterative reconstruction technique. COMPARISON: Noncontrast head CT 10/16/2017 FINDINGS: The CT angiogram images of the head reveal no evidence of intracranial aneurysm, focal stenosis, or proximal branch vessel occlusion. The major intradural venous sinuses are patent. There is no focal or hemodynamically significant stenosis in the internal carotid arteries by NASCET criteria. The bilateral vertebral artery origins are not well-seen, but the vertebral artery segments are otherwise patent without focal stenosis. The CT perfusion maps demonstrate symmetrical appearing cerebral blood volume, mean transit time, time to peak, and cerebral blood flow. There are dorsal spondylitic changes in the cervical spine. There are scattered subcentimeter lymph nodes in the neck. The visualized lung apices are clear. IMPRESSION: No evidence for a [place] proximal branch vessel occlusion. No evidence of hemodynamically significant stenosis in the cervical carotid or vertebral arteries by NASCET criteria. Symmetrical appearing CT perfusion maps. If clinically warranted, an MRI of the brain could be performed for further evaluation if there are no contraindications. Signed: Marc De La Garza MDReport Verified Date/Time: 10/16/2017 08:56:54 Reading Location: [facility] Reading Room 18 08:56 AM CTA, BRAIN, CEREBRAL PERFUSION, WITH [id number] 08:56:00FINAL REPORT CLINICAL HISTORY: Stroke, aphasia TECHNIQUE: Contiguous contrast-enhanced axial images through the neck followed by axial im ages through the head with coronal and sagittal reformations to assess the arter ial circulation. CT perfusion was also performed with post processing on a works tation. 3-D reconstructions were performed using a volume rendered technique sep adrian on a workstation. This exam was performed according to the departmental dose optimization program which includes automated exposure control, adjustment of the mA and/or kV according to the patient size, and/or use of an iterative re construction technique. COMPARISON: Noncontrast head CT 10/16/2017 FINDINGS: The CT angiogram images of the head reveal no evidence of intracranial aneurysm, foc al stenosis, or proximal branch vessel occlusion. The major intradural venous s inuses are patent. There is no focal or hemodynamically significant stenosis in the internal carotid arteries by NASCET criteria. The bilateral vertebral ar jeri origins are not well-seen, but the vertebral artery segments are otherwise patent without focal stenosis. The CT perfusion maps demonstrate symmetrical martín earing cerebral blood volume, mean transit time, time to peak, and cerebral bloo d flow. There are dorsal spondylitic changes in the cervical spine. There are sc attered subcentimeter lymph nodes in the neck. The visualized lung apices are cl ear. IMPRESSION: No evidence for a [place] proximal branch vessel occ lusion. No evidence of hemodynamically significant stenosis in the cervical car otid or vertebral arteries by NASCET criteria. Symmetrical appearing CT perfusio n maps. If clinically warranted, an MRI of the brain could be performed for furt her evaluation if there are no contraindications. Signed: Marc De La Garza MDReport Verified Date/Time: 10/16/2017 08:56:54 Reading Location: [facility] Reading Room 18 08:56 AM [id number] 08:46:00* Test Item Value Reference Range Comments POC-CREATININE (ERNIE) (test bkzb=6433) 1.4 mg/dL 0.6-1.3 TESTED AT [facility] [address] [facility] [address] POC-EGFR (ERNIE) (test zqng=1068) mL/min/1.73M2 Insufficient clinical data to calculate estimated GFR TROPONIN [id number] 08:45:00* Test Item Value Reference Range Comments TROPONIN I (ERNIE) (test jrjy=974) < ng/mL 0.00-0.15 Troponin I (TnI) levels must be interpreted in the context of the presenting sym ptoms and the clinical findings. Elevated TnI levels indicate myocardial damage, but are not specific for ischemic heart disease. Elevated TnI levels are seen in patients with other cardiac conditions (including myocarditis and congestive h eart failure), and slight TnI elevations occur in patients with other conditions , including sepsis, renal failure, acidosis, acute neurological disease, and per sistent tachyarrhythmia.B-TYPE NATRIURETIC FACTOR (BNP)2017-10-16 08:44:00* Test Item Value Reference Range Comments B-TYPE NATRIURETIC PEPTIDE (ERNIE) (test yjpd=259) 29 pg/mL 0-100 BASIC METABOLIC [id number] 08:39:00* Test Item Value Reference Range Comments SODIUM (BEAKER) (test xoie=896) 138 meq/L 135-148 POTASSIUM (BEAKER) (test sfyw=916) 5.2 meq/L 3.5-5.5 CHLORIDE (BEAKER) (test hzej=301) 111 meq/L 98-106 CO2 (BEAKER) (test eerq=542) 21 meq/L 20-31 BLOOD UREA NITROGEN (BEAKER) (test bdfv=866) 29 mg/dL 10-26 CREATININE (BEAKER) (test mpoi=076) 1.47 mg/dL 0.50-1.20 GLUCOSE RANDOM (BEAKER) (test fubh=611) 113 mg/dL 70-110 CALCIUM (BEAKER) (test ygzd=627) 9.2 mg/dL 8.5-10.5 EGFR (BEAKER) (test pzrn=4056) mL/min/1.73 sq m INSUFFICIENT CLINICAL DATA TO CALCULATE ESTIMATED GFR. [id number] 08:38:00* Test Item Value Reference Range Comments MAGNESIUM (BEAKER) (test nimc=793) 3.1 mg/dL 1.5-3.0 CT, BRAIN/STROKE [id number] 08:29:00Reason for exam:->NEUROLOGIC PROBLEM FINAL REPORT CT Head without contrast CLINICAL HISTORY: S troke, aphasia TECHNIQUE: Contiguous axial images through the head without contr ast. This exam was performed according to the departmental dose optimization pro gram which includes automated exposure control, adjustment of the mA and/or kV a ccording to the patient size, and/or use of an iterative reconstruction techniqu e. COMPARISON: None FINDINGS: There is no CT evidence of acute infarct or intrac ranial hemorrhage. There is mild generalized sulcal prominence without hydroceph alus, midline shift, or apparent mass effect. There are no extra-axial fluid col lections. The skull is intact. The paranasal sinuses are well-aerated. IMPRESSIO N: There is no CT evidence of acute infarct or intracranial hemorrhage. The find ings were discussed with Dr. DELVIN ROBB at 8:25 AM Signed: Marc De La Garza port Verified Date/Time: 10/16/2017 08:29:48 Reading Location: [facility] Reading Room Electronically signed by: MARC DE LA GARZA M.D. on 10/05 08:29 AM [id number] 08:25:00* Test Item Value Reference Range Comments PROTIME (BEAKER) (test culp=534) 13.2 seconds 11.8-14.4 INR (BEAKER) (test qbgy=260) 1.0 1.2-1.5 PARTIAL THROMBOPLASTIN TIME (BEAKER) (test wrfd=933) 29.4 seconds 23.2-36.1 RECOMMENDED COUMADIN/WARFARIN INR THERAPY RANGESSTANDARD DOSE: 2.0 - 3.0 Inclu emmy: PROPHYLAXIS for venous thrombosis, systemic embolization; TREATMENT for navdeep ous thrombosis and/or pulmonary embolus.HIGH RISK: Target INR is 2.5-3.5 for pat ients with mechanical heart valves.CBC W/PLT COUNT & AUTO [id number] 08:18:00* Test Item Value Reference Range Comments WHITE BLOOD CELL COUNT (BEAKER) (test fcvy=018) 5.9 K/ L 4.0-10.0 RED BLOOD CELL COUNT (BEAKER) (test nlta=661) 3.52 M/ L 4.00-5.00 HEMOGLOBIN (BEAKER) (test qtvk=236) 10.7 GM/DL 12.0-15.0 HEMATOCRIT (BEAKER) (test ealt=981) 32.2 % 36.0-45.0 MEAN CORPUSCULAR VOLUME (BEAKER) (test tgrc=605) 91.5 fL 82.0-99.0 MEAN CORPUSCULAR HEMOGLOBIN (BEAKER) (test rgwf=746) 30.3 pg 27.0-33.0 MEAN CORPUSCULAR HEMOGLOBIN CONC (BEAKER) (test famm=765) 33.2 GM/DL 32.0-36.0 RED CELL DISTRIBUTION WIDTH (BEAKER) (test hpio=348) 14.8 % 12.0-15.0 PLATELET COUNT (BEAKER) (test wdbg=898) 255 K/CU MM 150-430 MEAN PLATELET VOLUME (BEAKER) (test wixm=318) 7.4 fL 6.5-10.5 NUCLEATED RED BLOOD CELLS (BEAKER) (test vunn=465) 0 /100 WBC 0-0 NEUTROPHILS RELATIVE PERCENT (BEAKER) (test cdvt=909) 43 % LYMPHOCYTES RELATIVE PERCENT (BEAKER) (test lfvx=055) 45 % MONOCYTES RELATIVE PERCENT (BEAKER) (test hcxn=288) 7 % EOSINOPHILS RELATIVE PERCENT (BEAKER) (test vhgc=470) 5 % BASOPHILS RELATIVE PERCENT (BEAKER) (test popx=787) 1 % NEUTROPHILS ABSOLUTE COUNT (BEAKER) (test xdfx=257) 2.60 K/ L 1.80-8.00 LYMPHOCYTES ABSOLUTE COUNT (BEAKER) (test eovq=156) 2.60 K/ L 1.48-4.50 MONOCYTES ABSOLUTE COUNT (BEAKER) (test mwtv=689) 0.40 K/ L 0.00-1.30 EOSINOPHILS ABSOLUTE COUNT (BEAKER) (test igud=993) 0.30 K/ L 0.00-0.50 BASOPHILS ABSOLUTE COUNT (BEAKER) (test qasf=426) 0.00 K/ L 0.00-0.20 POCT-GLUCOSE [id number] 08:14:00* Test Item Value Reference Range Comments POC-GLUCOSE METER (BEAKER) (test krtc=1967) 118 mg/dL 70-110 TESTED AT [facility] [address] [facility] [address]
[2019-07-08] MEDS ORDERED: MORPHINE SULFATE INJ 4 MG/ML INJ 1ML IV PRN (10:15)
[2019-07-08] MEDS: NYSTATIN 15 GM POWDER UD BTL TOP SCH ×2 (10:28→17:00)
[2019-07-08] MEDS: ONDANSETRON HCL INJ 2MG/ML 2ML 2 MG/ML VIAL IV PRN (10:45)
[2019-07-08 14:46] VITALS: BP 81/55
--- NOTE | 2019-07-08 15:24 | NUR ---
H&P cc: leg pain and bed sores HPI: 58yoF, who lives at a fpc facility, developed leg pain and bedsores, found to have acute rhabdomyolysis and leg DVT. PMH: UTI with ESBL Klebsiella, CKD3 due to HTN, Morbid obesity, lymphedema, mood d/o, chr back pain, sciatica, stage 2 right heel/toe/buttock ulcer PSHx; gastric bypass, cholecystectomy, hysteectomy, back, appendectomy Allergies; see emr FH/SH: no illiciits meds see MAR ROS: no f/c/s/N/V/D/JAVIER/vision changes/cp/sob/dizziness v/s; revd PE tired appearing anicteric ns1s2 mod bs soft nt nd chr leg changes skin dry flat affect a&ox3; Stage 2 ulcers on buttock and leg labs/meds; revd A/P: Acute rhabdomyolysis- IVF Left leg DVT- AC - eliquis. Stage 2 buttock ulcer- frequent turn q2hrs; LWC; wound consult Stage 2 leg ulcer- frequent turns; wound care consult CKD3 due to HTN- f/u labs Hyponatremia- f/u Moderate anemia- follow; check anemia panel Physical deconditioning Mood d/o- cont home med Chr back pain- prn pain meds Constipation- bowel reg Prop: pepcid on AC dispo: Basilio Portillo MD, PhD.
[2019-07-08 15:32] VITALS: BP 81/55
[2019-07-08] MEDS ORDERED: IMIPRAMINE HCL25 MG PO (16:27)
[2019-07-08] MEDS ORDERED: TOPIRAMATE100 MG PO (16:27)
[2019-07-08] MEDS ORDERED: CYMBALTA20 MG PO (16:27)
[2019-07-08] MEDS ORDERED: HYDROCODON-ACE1 EA11 PO (16:27)
[2019-07-08] MEDS ORDERED: SPIRONOLACTONE25 MG PO (16:27)
[2019-07-08] MEDS ORDERED: TOLTERODINE TART2 MG PO (16:27)
[2019-07-08] MEDS ORDERED: METOPROLOL TART25 MG PO (16:27)
[2019-07-08] MEDS ORDERED: FUROSEMIDE40 MG PO (16:27)
[2019-07-08] MEDS ORDERED: GABAPENTIN300 MG PO (16:27)
[2019-07-08] MEDS ORDERED: OMEPRAZOLE40 MG PO (16:27)
[2019-07-08] MEDS ORDERED: TIZANIDINE HCL4 MG PO (16:27)
[2019-07-08 16:30] VITALS: BP 119/77
[2019-07-08 17:33] LABS: CREATINE KINASE 771 IU/L (29-168)
--- NOTE | 2019-07-08 17:46 | NUR ---
Patient's home medications need to be renewed, patient also complaints of slight "chest discomfort". Paged Dr. Portillo. Waiting paraprofessional education assistant back
[2019-07-08] MEDS: MORPHINE SULFATE INJ 4 MG/ML INJ 1ML IV PRN (18:10)
[2019-07-08 20:00] VITALS: BP 113/60
[2019-07-08 20:23] VITALS: BP 113/60
[2019-07-08] MEDS ORDERED: APIXABAN 5 MG TABLET PO SCH (21:00)
[2019-07-08 21:33] LABS: CREATINE KINASE MB 0.6 ng/mL (0-5.0)
[2019-07-09] VITALS (8 sets, daily range): BP systolic 98–142; BP diastolic 54–73
[2019-07-09] MEDS ORDERED: ACETAMINOPHEN 325 MG TAB PO PRN (00:15)
[2019-07-09] MEDS: MORPHINE SULFATE INJ 4 MG/ML INJ 1ML IV PRN ×3 (00:15→18:45)
[2019-07-09] MEDS: ONDANSETRON HCL INJ 2MG/ML 2ML 2 MG/ML VIAL IV PRN (00:15)
[2019-07-09] MEDS ORDERED: ZOLPIDEM TARTRATE 5 MG TAB PO PRN (00:15)
[2019-07-09] MEDS: TIZANIDINE HCL 4 MG TAB PO SCH ×4 (06:00→23:46)
--- NOTE | 2019-07-09 06:15 | NUR ---
IM- progress note O/N see below ROS: no f/c/s/N/V/D/JAVIER/vision changes/cp/sob/dizziness v/s; revd PE tired appearing anicteric ns1s2 mod bs soft nt nd chr leg changes skin dry flat affect a&ox3; Stage 2 ulcers on buttock and leg labs/meds; revd A/P: Acute rhabdomyolysis due to sedentary state- IVF Left leg DVT due to sedentary state - AC - eliquis. Stage 2 buttock ulcer- frequent turn q2hrs; LWC; wound consult Stage 2 leg ulcer- frequent turns; wound care consult CKD3 due to HTN- f/u labs Hyponatremia- f/u Moderate anemia- follow; check anemia panel Physical deconditioning Mood d/o- cont home med Chr back pain- prn pain meds Constipation- bowel reg Prop: pepcid on AC dispo: 3/4 CPK continues to improve; Hba1c is 5.6. SNF eval due to debility and ulcers. Also had rhabdomyolysis due to no PT being done at facilty. Basilio Portillo MD, PhD.
[2019-07-09] MEDS: DOCUSATE SODIUM 100 MG CAP PO SCH ×2 (09:15→17:24)
[2019-07-09] MEDS: DULOXETINE HCL 20 MG DELAYED RELEASE PO SCH (09:15)
[2019-07-09] MEDS: PANTOPRAZOLE SOD 40 MG TABEC PO SCH (09:15)
[2019-07-09] MEDS: TOLTERODINE TARTRATE 2 MG TAB PO SCH ×2 (09:15→17:24)
[2019-07-09] MEDS: METOPROLOL TARTRATE 25 MG TAB PO SCH ×2 (09:15→17:25)
[2019-07-09] MEDS: SENNOSIDES 8.6 MG TAB PO SCH (09:15)
[2019-07-09] MEDS: FUROSEMIDE 40 MG TAB PO SCH ×2 (09:15→17:24)
[2019-07-09] MEDS: GABAPENTIN 300 MG CAP PO SCH ×2 (09:15→17:26)
[2019-07-09] MEDS: APIXABAN 5 MG TABLET PO SCH ×2 (09:15→21:31)
[2019-07-09] MEDS: NYSTATIN 15 GM POWDER UD BTL TOP SCH ×2 (09:16→17:00)
[2019-07-09] MEDS: TOPIRAMATE 100 MG TAB PO SCH ×2 (09:16→17:26)
--- NOTE | 2019-07-09 10:43 | NUR ---
ASSESSMENT: Spiritual Distress RN submitted consult request on behalf of pt. Pt overwhelmed by declining health. Pt states she feels "defeated" and "alone." Pt laments over losses in mobility and the ability to "take care of myself." Pt states her family isn't supportive. Pt identifies as [place]. Intervention: Provided unhurried empathic listening. Facilitated illness review and identification of resources. Provided prayer. Provided information on how to reach shredded filler machine wrapper layer if needed. Outcome: Pt expressed appreciation for visit. Will follow as able. MAYA EVANS Director Of Speech Pathology Spiritual Care Department O: [phone]
--- NOTE | 2019-07-09 12:41 | NUR ---
WENT TO SPEAK TO PATIENT ABOUT SNF ORDER, SHE STATES SHE DOESNT KNOW, SHE REALLY WANTED TO GO TO IN PATIENT REHAB, SPOKE WITH HER ABOUT THE WOUND CARE AND IMPORTANCE OF 24 HOUR CARE, DUE TO [facility] HAVING TO GET APPROVAL FROM HOME IT IS NOT ADVISABLE FOR HER TO GO HOME BUT TO A SNF. SHE WILL THINK ABOUT IT AND LET ME KNOW.
--- NOTE | 2019-07-09 12:56 | NUR ---
report received from nightshift RN. patient resting comfortably in bed. denies any concerns. JUVENTINO.
--- NOTE | 2019-07-09 14:33 | NUR ---
WOUND CARE CONSULT FOR 58 YO FEMALE HX OF_DVT, CELLULITIS [place] 13 ON MODERATE PUP STATUS AND INTERVENTIONS AND ALTERNATING PRESSURE MATTRESS LABS: WBC-8.84 HGB_9.5 GLUCOSE-111 SKIN ASSESSMENT COMPLETE PATIENT PRESENTS WITH RIGHT GREAT TOE DORSAL STAGE 2 5NIP9BOK.1CM RIGHT GRT TOE POSTERIOR .5CMX.5CMX.1CM STAGE 2 WITH AEMRICO CALLUS RIGHT FOOT LATERAL POSTERIOR PLANTAR DTI 10CM X6CM WITH OPEN AREA 1.5CM X1.5CM X.1CM RIGHT THIGH STAGE 2 [id number].1CM LEFT GLUTEAL STAGE 2 2.5CMX2.5CM X.1CM RECOMMENDATIONS: NURSING TO CONTINUE TO MAINTAIN MODERATE PUP STATUS AND INTERVENTIONS AND ALTERNATING PRESSURE MATTRESS NURSING TO CONTINUE TO ASSIST PATIENT OUT OF BED FOR MEALS AND MUCH TOLERATED NURSING TO CONTINUE TO ASSIST PATIENT NEEDED WITH MEALS AND NUTRITIONAL SUPPLEMENTS TO ENSURE PROPER REQUIREMENTS FOR HEALING NURSING TO CONTINUE TO OFFLOAD FEET AND HEELS NEEDED WITH PILLOW SUSPENSION WHEN IN BED NURSING TO CLEAN RIGHT GREAT TOE DORSAL STAGE 2 AND RIGHT GRT TOE POSTERIOR STAGE 2 AND RIGHT FOOT LATERAL POSTERIOR PLANTAR DTI WITH NORMAL SALINE DAILY AND APPLY VENELEX OINTMENT NURSING TO CLEAN RIGHT THIGH STAGE 2 AND LEFT GLUTEAL STAGE 2 WITH NORMAL SALINE DAILY AND APPLY COLLAGEN (FIBRACOL PLUS) TO WOUND BED COVER WITH ALLEVYN FOAM DRESSING Addendum: 07/09/19 at 1450 by Dustin Peoples RN Amended: Links added.
--- NOTE | 2019-07-09 16:19 | NUR ---
Nutrition Screen Note RD Recommendation for Physician: - Continue current diet - Consider MVI with minerals for adequacy and skin integrity Plan of Care: RD following, monitoring for tolerance and adequacy Nutrition reason for involvement: Nutrition risk trigger Primary Diagnose(s): cellulitis PMH: CKD3, UTI, HTN, morbid obesity, lymphedema, gastric bypass Ht: 68 in Wt: 420 lb, weight at time of visit of 338# BMI: 63.85 kg/m2 IBW: [address] Assessment: (07/08) 58 YOF admitted for cellulits, LLE DVT, and acute rhabdomyolysis per MD notes. Pt seen today per MST screen. Pt very groggy at time of visit, no family present at bedside. 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 Pt denies any N/V/C/D. Pt reports UBW of 310#, no wt loss noted and pt weighed 338# at time of visit per bed scale. Per chart pt with sacral stage II PU. Chart reviewed. Labs and meds reviewed. Will continue to monitor Current Diet: 1800 ADA Malnutrition Evaluation (07/09/19) The patient does not meet criteria for a specified degree of malnutrition at this time. Will re-evaluate at follow-up as appropriate. Diet Education Needs Assessment: Diet education not indicated. Diet tolerance: tolerating po Nutrition Care Level: low Signed: Ramona Borrero RD, LD, [facility]
[2019-07-09] MEDS: IMIPRAMINE HCL 50 MG TAB PO SCH (21:31)
[2019-07-10] VITALS (8 sets, daily range): BP systolic 105–142; BP diastolic 59–79
[2019-07-10] MEDS: TIZANIDINE HCL 4 MG TAB PO SCH ×3 (05:52→18:00)
--- NOTE | 2019-07-10 07:00 | NUR ---
BEDSIDE SHIFT REPORT RECEIVED FROM THE ASSISTANT CASE MANAGER RN. EDUCATED PT ABOUT FALL PRECAUTIONS. PT VERBALIZED UNDERSTANDING. CALL LIGHT WITH IN EASY REACH. INSTRUCTED PT TO USE CALL LIGHT FOR ALL THE NEEDS. BED IS LOW AND LOCKED. SIDE RAILS X2. BED ALARM IS ON. PT DENIES NEEDS AT THIS TIME.
--- NOTE | 2019-07-10 07:06 | NUR ---
IM- progress note O/N see below ROS: no f/c/s/N/V/D/JAVIER/vision changes/cp/sob/dizziness v/s; revd PE tired appearing anicteric ns1s2 mod bs soft nt nd chr leg changes skin dry flat affect a&ox3; Stage 2 ulcers on buttock and leg labs/meds; revd A/P: Acute rhabdomyolysis due to sedentary state- IVF Left leg DVT due to sedentary state - AC - eliquis. Stage 2 buttock ulcer- frequent turn q2hrs; LWC; wound consult Stage 2 leg ulcer- frequent turns; wound care consult CKD3 due to HTN- f/u labs Hyponatremia- f/u Moderate anemia- follow; check anemia panel Physical deconditioning Mood d/o- cont home med Chr back pain- prn pain meds Constipation- bowel reg Prop: pepcid on AC dispo: 07/08 CPK continues to improve; Hba1c is 5.6. SNF eval due to debility and ulcers. Also had rhabdomyolysis due to no PT being done at facilty. 07/09 stable; awaiting d/c Basilio Portillo MD, PhD.
--- NOTE | 2019-07-10 07:30 | NUR ---
PAGED DR. NEWMAN REGARDING CBC AND BMP.
[2019-07-10 08:00] LABS: BASOPHILS % 0.7 % (0.0-1.0); EOSINOPHILS # (AUTO) 0.1 (0.0-0.4); HEMATOCRIT 26.6 % (34.2-44.1); HEMOGLOBIN 8.5 g/dL (12.0-16.0); LYMPHOCYTES # (AUTO) 1.8 (1.0-3.2); LYMPHOCYTES % 33.6 % (18.0-39.1); MEAN CORPUSCULAR HEMOGLOBIN 29.1 pg (28-32); MEAN CORPUSCULAR VOLUME 91.1 fL (81-99); MONOCYTES # (AUTO) 0.5 (0.2-0.8); MONOCYTES % 8.2 % (4.4-11.3); NEUTROPHILS % 55.3 % (38.7-80.0); PLATELET COUNT 359 x10e3/uL (140-360); RED BLOOD COUNT 2.92 x10e6/uL (3.6-5.1); RED CELL DISTRIBUTION WIDTH 14.7 % (11.7-14.4)
[2019-07-10 08:38] LABS: ANION GAP 9.9 mmol/L (8-16); BLOOD UREA NITROGEN 9 mg/dL (7-26); BUN/CREATININE RATIO 11 (6-25); CARBON DIOXIDE 24 mmol/L (22-29); CHLORIDE 107 mmol/L (98-107); CREATININE, SERUM 0.81 mg/dL (0.57-1.11); EST GLOMERULAR FILTRATION RATE > 60 ML/MIN (60-); GLUCOSE 101 mg/dL (74-118); POTASSIUM 3.9 mmol/L (3.5-5.1); SODIUM 137 mmol/L (136-145)
[2019-07-10] MEDS: MORPHINE SULFATE INJ 4 MG/ML INJ 1ML IV PRN ×2 (09:25→21:10)
[2019-07-10] MEDS: TOLTERODINE TARTRATE 2 MG TAB PO SCH ×2 (10:00→16:46)
[2019-07-10] MEDS: DOCUSATE SODIUM 100 MG CAP PO SCH ×2 (10:00→16:45)
[2019-07-10] MEDS: NYSTATIN 15 GM POWDER UD BTL TOP SCH ×2 (10:00→16:47)
[2019-07-10] MEDS: FUROSEMIDE 40 MG TAB PO SCH ×2 (10:00→16:46)
[2019-07-10] MEDS: DULOXETINE HCL 20 MG DELAYED RELEASE PO SCH (10:00)
[2019-07-10] MEDS: APIXABAN 5 MG TABLET PO SCH ×2 (10:00→21:22)
[2019-07-10] MEDS: TOPIRAMATE 100 MG TAB PO SCH ×2 (10:00→16:46)
[2019-07-10] MEDS: METOPROLOL TARTRATE 25 MG TAB PO SCH ×2 (10:00→16:46)
[2019-07-10] MEDS: BALSAM PERU/CASTOR OIL 60 GM OINT...G. TP SCH (10:00)
[2019-07-10] MEDS: SENNOSIDES 8.6 MG TAB PO SCH (10:00)
[2019-07-10] MEDS: GABAPENTIN 300 MG CAP PO SCH ×2 (10:00→16:46)
[2019-07-10] MEDS: PANTOPRAZOLE SOD 40 MG TABEC PO SCH (10:00)
[2019-07-10] MEDS ORDERED: ONDANSETRON HCL 4 MG ORAL DISINTEGRATING TAB PO PRN (10:15)
--- NOTE | 2019-07-10 10:38 | NUR ---
SPOKE WITH PT REALISTICALLY ABOUT OPTIONS AGAIN, SHE STATES SHE STILL WANTS TO TRY FOR THE IN PATIENT REHAB BUT WILL GO TO [facility] [place], SIGNED CHOICE FILED IN CHART FAXED CLINICALS AND PASRR TO FACILITY AND FILED IN CHART AND PACKET THE REST.
--- NOTE | 2019-07-10 12:40 | NUR ---
Follow up visit. Reminded pt of availability of spiritual care services. Pt expressed appreciation for visit. [facility] O: [phone] Pager: [phone] ([phone] number calling from)
--- NOTE | 2019-07-10 16:00 | NUR ---
PAGED DR. NEWMAN AND INGFORMED Addendum: 07/10/19 at 1851 by Jenni Adam RN PAGED DR. NEWMAN AND INFORMED ABOUT PT TEMPERATURE 99.[address] NEWMAN. CONTINUE MONITOR PER THE
[2019-07-10] MEDS: ZINC SULFATE 50 MG CAP PO SCH (17:59)
[2019-07-10] MEDS: ASCORBIC ACID 500 MG TAB PO SCH (17:59)
[2019-07-10] MEDS: MULTIVITAMINS/MINERALS TAB PO SCH (17:59)
--- NOTE | 2019-07-10 19:00 | NUR ---
BEDSIDE SHIFT REPORT GIVEN TO THE TEST GRADER RN. PT DENIED FURTHER NEEDS.
[2019-07-10] MEDS: IMIPRAMINE HCL 50 MG TAB PO SCH (21:22)
[2019-07-11] VITALS: BP 106/98
[2019-07-11] MEDS: TIZANIDINE HCL 4 MG TAB PO SCH ×4 (00:13→17:02)
[2019-07-11 04:00] VITALS: BP 119/67
--- NOTE | 2019-07-11 07:00 | NUR ---
BEDSIDE SHIFT REPORT RECEIVED FROM THE HEAD MILLER RN. EDUCATED PT ABOUT FALL PRECAUTIONS. PT VERBALIZED UNDERSTANDING. CALL LIGHT WITH IN EASY REACH. INSTRUCTED PT TO USE CALL LIGHT FOR ALL THE NEEDS. BED IS LOW AND LOCKED. SIDE RAILS X2. BED ALARM IS ON. PT DENIES NEEDS AT THIS TIME.
[2019-07-11 07:50] VITALS: BP 110/63
[2019-07-11] MEDS: MORPHINE SULFATE INJ 4 MG/ML INJ 1ML IV PRN ×3 (08:04→15:40)
[2019-07-11] MEDS: DULOXETINE HCL 20 MG DELAYED RELEASE PO SCH (08:07)
[2019-07-11] MEDS: DOCUSATE SODIUM 100 MG CAP PO SCH ×2 (08:07→16:50)
[2019-07-11] MEDS: APIXABAN 5 MG TABLET PO SCH (08:08)
[2019-07-11] MEDS: MULTIVITAMINS/MINERALS TAB PO SCH (08:08)
[2019-07-11] MEDS: PANTOPRAZOLE SOD 40 MG TABEC PO SCH (08:08)
[2019-07-11] MEDS: TOLTERODINE TARTRATE 2 MG TAB PO SCH ×2 (08:08→16:50)
[2019-07-11] MEDS: FUROSEMIDE 40 MG TAB PO SCH ×2 (08:08→16:50)
[2019-07-11] MEDS: GABAPENTIN 300 MG CAP PO SCH ×2 (08:08→16:50)
[2019-07-11] MEDS: ASCORBIC ACID 500 MG TAB PO SCH ×2 (08:11→16:50)
[2019-07-11] MEDS: TOPIRAMATE 100 MG TAB PO SCH ×2 (08:11→16:50)
[2019-07-11] MEDS: SENNOSIDES 8.6 MG TAB PO SCH (08:11)
[2019-07-11] MEDS: METOPROLOL TARTRATE 25 MG TAB PO SCH ×2 (08:12→16:50)
[2019-07-11 08:44] VITALS: BP 110/63
--- NOTE | 2019-07-11 09:32 | NUR ---
Spoke with Stefany in admissions at [facility] [place]. States she just sent an email to insurance again this morning. Waiting to hear back from them regarding skilled days pt has remaining.
[2019-07-11] MEDS: BALSAM PERU/CASTOR OIL 60 GM OINT...G. TP SCH (09:54)
[2019-07-11] MEDS: NYSTATIN 15 GM POWDER UD BTL TOP SCH ×2 (09:54→16:51)
[2019-07-11] MEDS: ZINC SULFATE 50 MG CAP PO SCH (10:00)
--- NOTE | 2019-07-11 10:46 | NUR ---
IM- progress note O/N see below ROS: no f/c/s/N/V/D/JAVIER/vision changes/cp/sob/dizziness v/s; revd PE tired appearing anicteric ns1s2 mod bs soft nt nd chr leg changes skin dry flat affect a&ox3; Stage 2 ulcers on buttock and leg labs/meds; revd A/P: Acute rhabdomyolysis due to sedentary state- IVF Left leg DVT due to sedentary state - AC - eliquis. Stage 2 buttock ulcer- frequent turn q2hrs; LWC; wound consult Stage 2 leg ulcer- frequent turns; wound care consult CKD3 due to HTN- f/u labs Hyponatremia- f/u Moderate anemia- follow; check anemia panel Physical deconditioning Mood d/o- cont home med Chr back pain- prn pain meds Constipation- bowel reg Prop: pepcid on AC dispo: 3 CPK continues to improve; Hba1c is 5.6. SNF eval due to debility and ulcers. Also had rhabdomyolysis due to no PT being done at facilty. 07/09 stable; awaiting d/c 3-6 d/c to SNF Basilio Portillo MD, PhD.
[2019-07-11] MEDS ORDERED: ELIQUIS5 MG PO (10:48)
[2019-07-11 11:53] VITALS: BP 109/71
[2019-07-11 16:00] VITALS: BP 128/78
--- NOTE | 2019-07-11 16:13 | NUR ---
RESIDENTIAL FACILITY DISCHARGE INFORMATION PATIENT HAS BEEN ACCEPTED TO: [facility] [place] [address] [place] [address] ACCEPTING HOSPICE MASSAGE THERAPIST: Estephania Adkins ACCEPTING MD: Dr. Portillo ROOM: 156 NURSE CALL REPORT TO: [phone] IMM SIGNED AND OBTAINED (if applicable): n/a THE FOLLOWING DOCUMENTS MUST ACCOMPANY PATIENT FOR TRANSFER: copy of chart. transfer mar COPIED CHART: unit aide RTF: completed and placed with pt's chart [id number] DNR: n/a DILCIA Adam and [employer] storage battery charger nurse was informed of bed.
--- NOTE | 2019-07-11 16:15 | NUR ---
DEVIKA TO D/C PT PER DR. NEWMAN. TRANSFER REPORT GIVEN TO HERMILO HA. PT IS TRANSFERRING TO RM # [id number]. INFORMED THE SAME TO PT. PT DENIED FURTHER NEEDS.
--- NOTE | 2019-07-11 18:10 | NUR ---
[facility] AT BEDSIDE TO TRANSFER THE PT. RAC IV 20 G REMOVED. TIP INTACT. DRESSING APPLIED. PT DENIED FURTHER NEEDS.
--- NOTE | 2019-07-11 19:00 | NUR ---
PT DISCHARGED TO CORRECTION SAFELY VIA [facility]. TELEMETRY AND IV REMOVED, TIP INTACT. DRESSING APPLIED. DISCHARGE INSTRUCTIONS GIVEN AND PATIENT VERBALIZED UNDERSTANDING. TRANSFERRING [facility] [id number]. TRANSFER REPORT TO HERMILO HA. PT DENIED FURTHER NEEDS.
== END 2019-07-11 18:55 ==
LOC: ER 16:16 → EDBD 16:16 → ERHOLD 07-08 07:41 → MED/SURG2 07-08 14:19
PROVIDERS: ADMIT Internal Medicine; ATTEND Internal Medicine
DX: I82.412 Acute embolism and thrombosis of left femoral vein (principal); M62.82 Rhabdomyolysis; I12.9 Hypertensive chronic kidney disease with stage 1 through stage 4 chronic kidney disease, or unspecified chronic kidney disease; N18.3 Chronic kidney disease, stage 3 (moderate); L89.312 Pressure ulcer of right buttock, stage 2; L89.612 Pressure ulcer of right heel, stage 2; E87.1 Hypo-osmolality and hyponatremia; D64.9 Anemia, unspecified; R53.81 Other malaise; F39 Unspecified mood [affective] disorder; M54.9 Dorsalgia, unspecified; K59.00 Constipation, unspecified; E66.01 Morbid (severe) obesity due to excess calories; Z68.44 Body mass index [BMI] 60.0-69.9, adult
CPT/HCPCS: 36415 ×4; 70450; 71045; 71260; 80048; 80053; 80061; 81001; 82550 ×3; 82553 ×2; 82948; 83036; 83605; 84484 ×2; 85025 ×2; 85610; 85730; 87040; 93970; 97139 ×5; 97162; 97530 ×3; 97602; 99285; G0378 ×4; J2270 ×4; J2405 ×2; J2543 ×2; J7030; J7040; Q0162; Q9967; S0164 ×3

== ENCOUNTER 2019-09-30 16:52 | Observation (INO) | payer MEDICARE, OTHER ==
[~2019-09-30] VITALS: Ht 175.3 cm; Wt 147.6 kg
[~2019-09-30 16:52] MED LIST: CYMBALTA20 MG PO; ELIQUIS5 MG PO; FUROSEMIDE40 MG PO; GABAPENTIN300 MG PO; HYDROCODON-ACE1 EA11 PO; IMIPRAMINE HCL25 MG PO; METOPROLOL TART25 MG PO; OMEPRAZOLE40 MG PO; SPIRONOLACTONE25 MG PO; TIZANIDINE HCL4 MG PO; TOLTERODINE TART2 MG PO; TOPIRAMATE100 MG PO
--- OUTSIDE RECORDS SUMMARY | 2019-09-30 16:54 | XMS REPORT | Clinical Summary ---
Author Author [facility] Address Unknown Phone Unavailable Care Team Providers Care Administration Assistant Name Role Phone Vick Jared Noe PCP Allergies No Known Allergies Medications Not on file Active Problems Problem Noted Date Altered mental status, unspecified altered mental sta tus type 10/16/2017 Obesity, Class II, BMI 35-39.9 10/16/2017 Overview: 10/16/2017 BMI 35.87 Social History Date Tobacco Use Types Packs/Day Years Used Never Smoker Sex Assigned at Date Recorded Not on file Industry Job Start Date Occupation Not on file Not on file Not on file Travel End Travel History Travel Start No recent travel history available. Last Filed Vital Signs Not on file Plan of Treatment Not on file Results Not on fileafter 09/29/2018 Insurance Payer Benefit Subscriber ID Type Phone Address Plan / Group [employer] CIGNA xxxxxxxx [facility] [employer] Contracted ALL Advance Directives For more information, please contact: [facility] [address] [place] [address] Date Inactivated Comments Code Status Date Activated 10/17/2017 11:33 PM Full Code 10/16/2017 1:18 PM This code status was determined by: Patient
--- OUTSIDE RECORDS SUMMARY | 2019-09-30 16:54 | XMS REPORT | Clinical Summary ---
Author Author [facility] Address Unknown Phone Unavailable Care Team Providers Care Photographic Technician Name Role Phone Jared Hickman MD PCP Allergies No Known Allergies Medications End Date Status Medication Sig Dispensed Refills Start Date Active furosemide (LASIX) 40 mg TK 1 TO 2 TS 10 08/20 tablet PO QD 8 Active HYDROcodone-acetaminophen Take 1 tablet 0 09/04 (NORCO) 5-325 mg per by mouth 8 tablet every 8 (eight) hours as needed. for pain Active gabapentin (NEURONTIN) TAKE 4 6 01 300 mg capsule CAPSULES PO 8 BID Active spironolactone TK 1 T PO BID 3 (ALDACTONE) 50 MG tablet 8 Active metoprolol tartrate TK 1 T PO BID 3 (LOPRESSOR) 50 mg tablet 8 Active tiZANidine (ZANAFLEX) 4 TK 1 T PO TWO 1 MG tablet TO TID PRN 8 Active losartan (COZAAR) 100 MG TK 1 T PO D 6 07/21 tablet 8 Active topiramate (TOPAMAX) 100 TK 1 T PO BID 3 08/08 MG tablet 8 Active imipramine (TOFRANIL) 25 TK 2 TS PO HS 6 08/20 MG tablet 8 Active tolterodine (DETROL) 2 MG TK 1 T PO BID 2 09/04 tablet FOR 8 OVERACTIVE BLADDER Active meloxicam (MOBIC) 15 mg TK 1 T PO QD 2 tablet 8 Active potassium chloride TK 1 T PO BID 6 (K-DUR) 20 MEQ CR tablet 8 Active DULoxetine (CYMBALTA) 30 Take 30 mg by 0 MG capsule mouth daily. Active Problems No known active problems Family History Medical History Relation Name Comments Cancer Brother Aneurysm Father Circulation Problems with Father Legs Heart disease Father Hypertension Father Cancer Mother Diabetes Mother Hypertension Mother Diabetes Sister Heart disease Sister Hypertension Sister Kidney disease Sister Relation Name Status Comments Brother Father Mother Sister Social History Date Tobacco Use Types Packs/Day Years Used Former Smoker Smokeless Tobacco: Never Used Sex Assigned at Date Recorded Not on file Industry Job Start Date Occupation Not on file Not on file Not on file Travel End Travel History Travel Start No recent travel history available. Last Filed Vital Signs Not on file Plan of Treatment Health Maintenance Due Date Last Done Comments CERVICAL CANCER SCREENING 12/20/1979 BREAST CANCER SCREENING 2008 COLONOSCOPY SCREENING 2008 SHINGLES VACCINES (#1) 2008 INFLUENZA VACCINE 12/06/2019 Results Not on fileafter 09/29/2018 Insurance Type Payer Benefit Subscriber ID Effective Phone Address Plan / Dates Group HMO [employer] CIGNA xxxxxxxx 2017- [employer] Present HMO MCR ADV Advance Directives For more information, please contact: [phone] Patient Slip Cover Cutter Explanation Type Date Recorded Advance Directives, Living Will and Medical Power of Accounting Systems Analyst
--- OUTSIDE RECORDS SUMMARY | 2019-09-30 16:55 | XMS REPORT ---
Author Author [facility] t Organization [facility] Address [address] [facility]. [address] [place] [address] Phone Unavailable Care Team Providers Care Resident Care Spec Name Role Phone NONSTAFF PCP Unavailable CHAD MEJIA Attphys Unavailable YVONNEOODELVIN RAMIREZ Attphys Unavailable POONAWALA, I ASHIQUEALI Admphys Unavailable Payers Payer Name Policy Type Policy Number Effective Date Expiration Date S ource Problems This patient has no known problems. Allergies, Adverse Reactions, Alerts Allergy Name Allergy Type Status Severity Reaction(s) Onset Date Inacti ve Date Treating Clinician Comments Source Penicillin Allergy to Substance Active Moderate 2019-07-08 00:00:0 0 [facility] Penicillins DA Active SV 2019-03-22 00:00:00 [facility] Family History Family Member Diagnosis Comments Start Date Stop Date Source Natural brother Cancer Albino M ethodist Natural father Aneurysm Albino Me thodist Natural father Circulation Problems with Legs Albino Larwence Natural father Heart disease Albino Voodoo Natural father Hypertension Albino Voodoo Natural mother Cancer Alb[facility] Me thodist Natural mother Diabetes Albino Me thodist Natural mother Hypertension Albino Voodoo Natural sister Diabetes Albino Me thodist Natural sister Heart disease Albino Voodoo Natural sister Hypertension Albino Voodoo Natural sister Kidney disease [place] Voodoo Social History Social Habit Start Date Stop Date Quantity Comments Source Sex Assigned At Sita cohen Voodoo Smoking Status Start Date Stop Date Source Former smoker 2017-10-12 00:00:00 2017-10-12 00:00:00 Albino Lawrence Medications Ordered Medication Name Filled Medication Name Start Date Stop Da te Current Medication? Ordering Clinician Indication Dosage Frequency Signature (SIG) Comments Components Source Apixaban (Eliquis) 5 Mg Tablet Apixaban (Eliquis) 5 Mg Table t 2019-07-11 00:00:00 Yes Basilio Portillo Md 10 Every 12 Hours [facility] DULoxetine (CYMBALTA) 30 MG capsule 2017-10-11 16:14:20 Yes 30mg QD Take 30 mg by mouth daily. Albino Lawrence gabapentin (NEURONTIN) 300 mg capsule 2017-09-20 00:00:00 Y es TAKE 4 CAPSULES PO BID Albino Lawrence tolterodine (DETROL) 2 MG tablet 2017-09-20 00:00:00 Yes TK 1 T PO BID FOR OVERACTIVE BLADDER Albino ramos meloxicam (MOBIC) 15 mg tablet 2017-09-20 00:00:00 Yes TK 1 T PO QD Albino Lawrence HYDROcodone-acetaminophen (NORCO) 5-325 mg per tablet 2017-09-19 00:00:00 Yes 1{tbl} Q8H Take 1 tablet b y mouth every 8 (eight) hours as needed. for pain Albino Lawrence tiZANidine (ZANAFLEX) 4 MG tablet 2017-09-08 00:00:00 Yes TK 1 T PO TWO TO TID PRN Albino Lawrence potassium chloride (K-DUR) 20 MEQ CR tablet 2017-09-07 00:00:00 Yes TK 1 T PO BID Albino Lawrence furosemide (LASIX) 40 mg tablet 2017-08-20 00:00:00 Yes TK 1 TO 2 TS PO QD Albino Lawrence imipramine (TOFRANIL) 25 MG tablet 2017-08-20 00:00:00 Yes TK 2 TS PO HS Albino Lawrence spironolactone (ALDACTONE) 50 MG tablet 2017-08-13 00:00:00 Yes TK 1 T PO BID Albino Lawrence topiramate (TOPAMAX) 100 MG tablet 2017-08-08 00:00:00 Yes TK 1 T PO BID Albino Lawrence metoprolol tartrate (LOPRESSOR) 50 mg tablet 2017-07-21 00:00:00 Yes TK 1 T PO BID Albino High t losartan (COZAAR) 100 MG tablet 2017-07-21 00:00:00 Yes TK 1 T PO D Albino Lawrence Duloxetine Hcl (Cymbalta) 20 Mg Capcr Duloxetine Hcl (Cymbalta) 20 Mg Capcr Yes 20 Daily [facility] Furosemide 40 Mg Tablet Furosemide 40 Mg Tablet Yes 40 Twice A Day [facility] Gabapentin 300 Mg Capsule Gabapentin 300 Mg Capsule Yes 600 Twice A Day [facility] Hydrocodone Bit/Acetaminophen (Hydrocodon-Acetaminophe n 5-325) 1 Each Tablet Hydrocodone Bit/Acetaminophen (Hydrocodon-Acetaminophen 5-325) 1 Each Tablet Yes 1 Every 6 Hours as needed for Mild Pain (1-3) Or Fever>100.8 [facility] Imipramine Hcl 25 Mg Tablet Imipramine Hcl 25 Mg Tablet Yes 25 Bedtime [facility] Metoprolol Tartrate 25 Mg Tablet Metoprolol Tartrate 25 Mg Tablet Yes 25 Twice A Day [facility] Omeprazole 40 Mg Capsule. Omeprazole 40 Mg Capsule. Yes 40 Daily [facility] Spironolactone 25 Mg Tablet Spironolactone 25 Mg Tablet Yes 50 Daily [facility] Tizanidine Hcl 4 Mg Tablet Tizanidine Hcl 4 Mg Tablet Yes 4 Every 6 Hours [facility] Tolterodine Tartrate 2 Mg Tablet Tolterodine Tartrate 2 Mg Tablet Yes 2 Twice A Day [facility] Topiramate 100 Mg Tablet Topiramate 100 Mg Tablet Yes 100 Twice A Day [facility] Procedures Procedure Date / Time Performed Performing Clinician [facility] Computed tomography of brain without radiopaque contrast 00:00:00 CHAD MEJIA [facility] X-ray of chest, single view 2019-07-07 00:00:00 CHAD MEJIA [facility] Computed tomography of chest with contrast 2019-07-07 00:00:00 ZHANG HART [facility] Plan of Care Planned Activity Planned Date Details Comments Source Future Scheduled Test 2019-12-06 00:00:00 INFLUENZA VACCINE [code = INFLUENZA VACCINE] [facility] Scheduled Test 2008 00:00:00 BREAST CANCER SCRE ENING [code = BREAST CANCER SCREENING] [facility] Scheduled Test 2008 00:00:00 COLONOSCOPY SCREEN ING [code = COLONOSCOPY SCREENING] [facility] Scheduled Test 2008 00:00:00 SHINGLES VACCINES (#1) [code = SHINGLES VACCINES (#1)] [facility] Scheduled Test 1979-12-20 00:00:00 Screening for lucas gnant neoplasm of cervix (procedure) [code = 625315120] [facility] Encounters Start Date/Time End Date/Time Encounter Type Admission Type [facility] Care Department Encounter ID Source 2019-07-08 07:41:00 2019-07-11 18:55:00 Discharged Inpatient (obs) 1 CHAD MEJIA [facility] [id number] [facility] Results Test Description Test Time Test Comments Results Result Comments Source Blood Culture 2019-07-10 17:59:00 Test Item Blood Culture (test code = 23145028) NO GROWTH AFTER 72 HOURS [facility] Plan[facility]ium Yisjk0822-50-38 08:41:00* Test Item Value Reference Range Interpretation Comments Sodium Level (test code = 2951-2) 137 136-145 [facility] Zmest6414-76-42 08:41:00* Test Item Value Reference Range Interpretation Comments Potassium Level (test code = 2823-3) 3.9 3.5-5.1 [facility] Bjxct6726-48-49 08:41:00* Test Item Value Reference Range Interpretation Comments Chloride Level (test code = 2075-0) 107 98-107 [facility]Car[facility] Dioxide Sckjj9075-24-76 08:41:00* Test Item Value Reference Range Interpretation Comments Carbon Dioxide Level (test code = 2028-9) 24 22-29 [facility]Anion Vcn7350-48-57 08:41:00* Test Item Value Reference Range Interpretation Comments Anion Gap (test code = 42657-2) 9.9 8-16 [facility] Urea Decmvlrm5569-23-07 08:41:00* Test Item Value Reference Range Interpretation Comments Blood Urea Nitrogen (test code = 3094-0) 9 7-26 [facility]Creatinine2020-03-05 08:41:00* Test Item Value Reference Range Interpretation Comments Creatinine (test code = 2160-0) 0.81 0.57-1.11 [facility]BUN/Creatinine Atsfa8235-38-27 08:41:00* Test Item Value Reference Range Interpretation Comments BUN/Creatinine Ratio (test code = 3097-3) 11 6- [facility] HospitalEstimat Glomerular Filtration Rate 2019-07-10 08:41:00* Test Item Value Reference Range Interpretation Comments Estimat Glomerular Filtration Rate (test code = 988447420) > 60 >60 Ranges were taken from the National Kidney Disease Education Program and the [facility] Kid[facility] Foundation literature.Reference ranges:60 or greater: Srruhl98-09 ( for 3 consecutive months): Chronic kidney disease 15 or less: Kidney failureTyler County HospitalGlucose Dotxs1501-00-55 08:41:00* Test Item Value Reference Range Interpretation Comments Glucose Level (test code = NRI3200) 101 74-118 [facility] HospitalCalcium Hfxon6118-98-68 08:41:00* Test Item Value Reference Range Interpretation Comments Calcium Level (test code = 05659-6) 8.0 8.4-10.2 [facility] HospitalWhite Blood Rguwx3677-63-39 08:02:00* Test Item Value Reference Range Interpretation Comments White Blood Count (test code = 6690-2) 5.48 4.8-10.8 [facility] HospitalRed Blood Otvim6809-00-88 08:02:00* Test Item Value Reference Range Interpretation Comments Red Blood Count (test code = 789-8) 2.92 3.6-5.1 [facility] HospitalHemoglobin2020-03-05 08:02:00* Test Item Value Reference Range Interpretation Comments Hemoglobin (test code = 75576-5) 8.5 12.0-16.0 [facility] HospitalHematocrit2020-03-05 08:02:00* Test Item Value Reference Range Interpretation Comments Hematocrit (test code = 4544-3) 26.6 34.2-44.1 [facility] HospitalMean Corpuscular Wdmjso8866-43-48 08:02:00* Test Item Value Reference Range Interpretation Comments Mean Corpuscular Volume (test code = 787-2) 91.1 81-99 [facility] HospitalMean Corpuscular Lquxgnavyr2672-25-80 08:02:00* Test Item Value Reference Range Interpretation Comments Mean Corpuscular Hemoglobin (test code = 785-6) 29.1 28-32 [facility] Hemoglobin Concent 2019-07-10 08:02:00* Test Item Value Reference Range Interpretation Comments Mean Corpuscular Hemoglobin Concent (test code = 786-4) 32.0 31-35 [facility] HospitalRed Cell Distribution Yyada0586-64-82 08:02:00* Test Item Value Reference Range Interpretation Comments Red Cell Distribution Width (test code = 86720-2) 14.7 11.7 -14.4 [facility] HospitalPlatelet Bpnca0134-67-86 08:02:00* Test Item Value Reference Range Interpretation Comments Platelet Count (test code = 777-3) 359 140-360 [facility] HospitalNeutrophils (%) (Auto)2019-07-10 08:02:00 * Test Item Value Reference Range Interpretation Comments Neutrophils (%) (Auto) (test code = 03302-2) 55.3 38.7-80.0 [facility] HospitalLymphocytes (%) (Auto)2019-07-10 08:02:00 * Test Item Value Reference Range Interpretation Comments Lymphocytes (%) (Auto) (test code = 736-9) 33.6 18.0-39.1 [facility] HospitalMonocytes (%) (Auto)2019-07-10 08:02:00* Test Item Value Reference Range Interpretation Comments Monocytes (%) (Auto) (test code = 5905-5) 8.2 4.4-11.3 [facility]Eosinophils (%) (Auto)2019-07-10 08:02:00 * Test Item Value Reference Range Interpretation Comments Eosinophils (%) (Auto) (test code = 713-8) 2.0 0.0-6.0 [facility] HospitalBasophils (%) (Auto)2019-07-10 08:02:00* Test Item Value Reference Range Interpretation Comments Basophils (%) (Auto) (test code = 706-2) 0.7 0.0-1.0 [facility] HospitalIM GRANULOCYTES %2019-07-10 08:02:00* Test Item Value Reference Range Interpretation Comments IM GRANULOCYTES % (test code = IM GRANULOCYTES %) 0.2 0.0- 1.0 [facility] HospitalNeutrophils # (Auto)2019-07-10 08:02:00* Test Item Value Reference Range Interpretation Comments Neutrophils # (Auto) (test code = 751-8) 3.0 2.1-6.9 [facility] HospitalLymphocytes # (Auto)2019-07-10 08:02:00* Test Item Value Reference Range Interpretation Comments Lymphocytes # (Auto) (test code = 67659-5) 1.8 1.0-3.2 [facility] HospitalMonocytes # (Auto)2019-07-10 08:02:00* Test Item Value Reference Range Interpretation Comments Monocytes # (Auto) (test code = 742-7) 0.5 0.2-0.8 [facility] HospitalEosinophils # (Auto)2019-07-10 08:02:00* Test Item Value Reference Range Interpretation Comments Eosinophils # (Auto) (test code = 711-2) 0.1 0.0-0.4 [facility] HospitalBasophils # (Auto)2019-07-10 08:02:00* Test Item Value Reference Range Interpretation Comments Basophils # (Auto) (test code = 704-7) 0.0 0.0-0.1 [facility] HospitalAbsolute Immature Granulocyte (auto 2019-07-10 08:02:00* Test Item Value Reference Range Interpretation Comments Absolute Immature Granulocyte (auto (skyla t code = Absolute Immature Granulocyte (auto) 0.01 0-0.1 [facility] HospitalTriglycerides Cczrf2155-53-64 05:55:00* Test Item Value Reference Range Interpretation Comments Triglycerides Level (test code = 2571-8) 64 0-149 [facility] HospitalCholesterol Qrcjf3660-08-97 05:55:00* Test Item Value Reference Range Interpretation Comments Cholesterol Level (test code = 2093-3) 136 0-199 Less than 200 mg/dL Low Cier981 - 239 mg/dL Borderline Nosh278 m g/dl and greater High Risk [facility] HospitalLDL Sxiuijyltfh2530-44-68 05:55:00* Test Item Value Reference Range Interpretation Comments LDL Cholesterol (test code = 2089-1) 89 60-130 [facility] HospitalHDL Fgxxipvvfpf9176-19-39 05:55:00* Test Item Value Reference Range Interpretation Comments HDL Cholesterol (test code = 2085-9) 34 40-60 [facility] HospitalCholesterol/HDL Qusrd0825-83-68 05:55:00 * Test Item Value Reference Range Interpretation Comments Cholesterol/HDL Ratio (test code = 9830-1) 4.0 3.0-3.6 [facility] HospitalCreatine Yqkqwn1893-50-30 05:31:00* Test Item Value Reference Range Interpretation Comments Creatine Kinase (test code = 2157-6) 522 29-168 [facility] HospitalHemoglobin A1c Wsfhivg0495-85-93 05:24:00 * Test Item Value Reference Range Interpretation Comments Hemoglobin A1c Percent (test code = Hemoglobin A1c Percent) 5.6 4.0-7.0 [facility] HospitalCreatine Kinase [id number] 21:35:00* Test Item Value Reference Range Interpretation Comments Creatine Kinase MB (test code = 25151-2) 0.60 0-5.0 [facility] HospitalTroponin J4350-17-03 21:35:00* Test Item Value Reference Range Interpretation Comments Troponin I (test code = MHQ4988) 0.005 0-0.300 [facility] HospitalCT CHEST H9078-33-84 07:31:00 [facility] [address] [address] Patient Name: GALLO STOVER MR #: [id number] : 1960 Age/Sex: 58/F Req #: [id number] Adm Physician: Ordered by: ZHANG WILSON DO Report #: [id number] Location: ER Room/Bed: Procedure: [id number] CT /CT CHEST W Exam Date: 07/07/19 Exam Time: 3650 REPORT STATUS: Signed EXAM: CT Chest WITH contrast (PE protocol) 07/07/2019 9:26 PM INDICATION: Weakness, hypertensi on, pain COMPARISON: None TECHNIQUE: Chest was scanned utilizing a multidetector helical scanner from the lung apex through the level of the a drenal glands with administration of IV contrast. Coronal and sagittal reforma tions were obtained. Departmental PE protocol was performed. IV CONTRAS T: 100 mL of Isovue 370 COMPLICATIONS: None RADIATION DOSE: To funmilayo DLP: 551 mGy*cm Estimated effective dose: (DLP x 0.014 x size factor) mSv CTDIvol has been reviewed. It is below the limits set by the Radiati on Protocol Committee (RPC). Dose modulation, iterative reconstruction, and/or weight based adjustment of the mA/kV was utilized to reduce the radiat ion dose to as low as reasonably achievable. FINDINGS: LINES/ TUBES : None. LUNGS AND AIRWAYS: No pulmonary arterial filling defect. The lungs are unremarkable. Airways are normal. PLEURA: The pleural spaces are ephraim ar. HEART AND MEDIASTINUM: The thyroid gland is normal. No mediastinal, hi lar or axillary lymphadenopathy. The heart is normal in size. There is no per icardial effusion. Calcifications of the aorta and major branches including t he coronary arteries. UPPER ABDOMEN: Partially visualized gastric bypass surgical changes appear intact. Cholecystectomy clips. BONES: There are d egenerative changes in the thoracic spine. SOFT TISSUES: Unremarkable. IMPRESSION: No pulmonary embolus. Coronary artery calcific atherosclero sis.. Signed by: Indio Bass DO on 07/08/2019 7:35 AM Dictated By: INDIO BASS DO 4 COPY TO: EDWARD WILSON DO Bedside Vcnmcgb1485-31-03 00:36:00* Test Item Value Reference Range Interpretation Comments Bedside Glucose (test code = 56920-7) 105 70-120 Meter ID: [id number] County HospitalActivated Partial Thromboplast Ivzs3946-73-91 22:59:00* Test Item Value Reference Range Interpretation Comments Activated Partial Thromboplast Time (test code = 89735-5) 34.0 23.8-35.5 [facility] HospitalProthrombin Qkqc5159-83-47 22:53:00* Test Item Value Reference Range Interpretation Comments Prothrombin Time (test code = 5902-2) 14.7 11.9-14.5 [facility] HospitalProthromb Time International Ratio 2019-07-07 22:53:00* Test Item Value Reference Range Interpretation Comments Prothromb Time International Ratio (test code = 6301-6) 1.08 Oral Anticoagulant Therapy INR Values:1. Low Intensity Therapy 1.5 - 2.02 . Moderate Intensity Therapy 2.0 - 3.03. High Intensity Therapy(1) 2.5 - 3. 54. High Intensity Therapy(2) 3.0 - 4.05. Panic Value INR > 5.0 [facility] HospitalUrine [id number] 21:35:00* Test Item Value Reference Range Interpretation Comments Urine WBC (test code = 5821-4) NONE 0-5 [facility] HospitalUrine [id number] 21:35:00* Test Item Value Reference Range Interpretation Comments Urine RBC (test code = 29320-7) NONE 0-5 [facility] HospitalUrine Recpqntv7418-63-94 21:35:00* Test Item Value Reference Range Interpretation Comments Urine Bacteria (test code = 93194-3) NONE NONE [facility] HospitalUrine Epithelial Hclak0353-70-57 21:35:00 * Test Item Value Reference Range Interpretation Comments Urine Epithelial Cells (test code = 08048-3) RARE NONE [facility] HospitalUrine Cagee3716-07-20 21:27:00* Test Item Value Reference Range Interpretation Comments Urine Color (test code = 5778-6) YELLOW YELLOW [facility] HospitalUrine Wjubktz5896-80-31 21:27:00* Test Item Value Reference Range Interpretation Comments Urine Clarity (test code = 72862-4) CLEAR CLEAR [facility] HospitalUrine Specific Intajaa3246-36-88 21:27:00 * Test Item Value Reference Range Interpretation Comments Urine Specific [place] (test code = 5811-5) 1.005 1.010-1.02 5 [facility] HospitalUrine [id number] 21:27:00* Test Item Value Reference Range Interpretation Comments Urine pH (test code = 62530-5) 6 5-7 [facility] Leukocyte Wdbmuljy8781-48-58 21:27:00* Test Item Value Reference Range Interpretation Comments Urine Leukocyte Esterase (test code = 5799-2) NEGATIVE NEGATIVE [facility] Adnxmfr6075-04-00 21:27:00* Test Item Value Reference Range Interpretation Comments Urine Nitrite (test code = 14366-9) NEGATIVE NEGATIVE [facility] Tetlxan2890-74-10 21:27:00* Test Item Value Reference Range Interpretation Comments Urine Protein (test code = 5804-0) NEGATIVE NEGATIVE [facility] HospitalUrine Glucose (UA)2019-07-07 21:27:00* Test Item Value Reference Range Interpretation Comments Urine Glucose (UA) (test code = 2349-9) NEGATIVE NEGATIVE [facility] Gauxgjk4541-69-46 21:27:00* Test Item Value Reference Range Interpretation Comments Urine Ketones (test code = 76121-1) NEGATIVE NEGATIVE [facility] Qtvsmivhxema5705-25-86 21:27:00* Test Item Value Reference Range Interpretation Comments Urine Urobilinogen (test code = 47111-0) 0.2 0.2-1 [facility] Keltaxgsj0730-61-83 21:27:00* Test Item Value Reference Range Interpretation Comments Urine Bilirubin (test code = 1978-6) NEGATIVE NEGATIVE [facility] HospitalU[facility] Htphq6231-86-37 21:27:00* Test Item Value Reference Range Interpretation Comments Urine Blood (test code = 01198-8) NEGATIVE NEGATIVE [facility] HospitalTotal Swspzboks7160-16-57 19:27:00* Test Item Value Reference Range Interpretation Comments Total Bilirubin (test code = 1975-2) 0.7 0.2-1.2 [facility] HospitalAspartate Amino Transf (AST/SGOT) 2019-07-07 19:27:00* Test Item Value Reference Range Interpretation Comments Aspartate Amino Transf (AST/SGOT) (test code = Aspartate Amino Transf (AST/SGOT)) 37 5-34 [facility] HospitalAlanine Aminotransferase (ALT/SGPT) 2019-07-07 19:27:00* Test Item Value Reference Range Interpretation Comments Alanine Aminotransferase (ALT/SGPT) (test code = 1742-6) 18 0-55 [facility] HospitalTotal Iudnsxz9470-56-95 19:27:00* Test Item Value Reference Range Interpretation Comments Total Protein (test code = 2885-2) 6.2 6.5-8.1 [facility] HospitalAlbumin2020-03-02 19:27:00* Test Item Value Reference Range Interpretation Comments Albumin (test code = 1751-7) 2.8 3.5-5.0 [facility] HospitalGlobulin2020-03-02 19:27:00* Test Item Value Reference Range Interpretation Comments Globulin (test code = 98810-3) 3.4 2.3-3.5 [facility] HospitalAlbumin/Globulin Cxoap2024-17-87 19:27:00 * Test Item Value Reference Range Interpretation Comments Albumin/Globulin Ratio (test code = 1759-0) 0.8 0.8-2.0 [facility] HospitalAlkaline Qiclewvxgft8961-46-46 19:27:00* Test Item Value Reference Range Interpretation Comments Alkaline Phosphatase (test code = 6768-6) 134 40-150 [facility] HospitalLactic Acid Vtfkc2407-86-22 18:25:00* Test Item Value Reference Range Interpretation Comments Lactic Acid Level (test code = Lactic Acid Level) 1.1 0.5- 2.0 [facility] HospitalCT BRAIN MJ2843-03-04 17:22:00 [facility] [address] [place] [address] Patient Name: GALLO STOVER MR #: [id number] : 12/23/1970 Age/Sex: 48/F Req #: [id number] Adm Physician: Ordered by: CHAD MEJIA DO Report #: [id number] Location: ER Room/Bed: Procedure: [id number] CT/CT BRAIN WO Exam Date: Exam Time: REPORT STATUS: Signed CT BRAIN WO HISTORY: Henry ateral lower extremity weakness COMPARISON: None. TECHNIQUE: Nonco ntrast axial scans were obtained from skull base to the vertex. Coronal and s agittal reconstructions obtained from the axial data. One or more of the foll owing dose reduction techniques were used: Automated exposure control, adjustm ent of the mA and/or kV according to patient size, and/or utilization of itera tive reconstruction technique. Motion and beam hardening artifacts obscure obey e details. DISCUSSION: Scalp/Skull: Unremarkable. Brain sulci: Appro priate for patient's age. Ventricles: Normal in size and configuration. No hy drocephalus. Extra-axial spaces: No masses or fluid collections. Mild carotid siphon calcifications are present. Parenchyma: No abnormal densities. No mass, hemorrhage, or large vascular territory acute infarct. Dural si nuses: No abnormal densities. Sellar/Suprasellar region: Intact. Skull base : Intact. Incidental findings: None. IMPRESSION: No acute intracrani al abnormalities. Signed by: Dr. Jan Zhou M.D. on 07/07/2019 5:2 3 PM Dictated By: JAN ZHOU MD 22 Transcribed By: GIN on 07/07/191722 COPY TO: CHAD MEJIA DO CHEST SINGLE (NOT PORTABLE)2019-07-07 17:21:[address] [address] Patient Name: GALLO STOVER MR #: [id number] : 12/23/1970 Age/Sex: 48/F Req #: [id number] Adm Physician: Ordered by: CHAD MEJIA DO Report #: [id number] Location: ER Room/Bed: Procedure: [id number] DX/[facility] ST SINGLE (NOT PORTABLE) Exam Date: 07/07/19 Exam Ti me: 1709 REPORT STATUS: Signed C hest, single frontal view History: Weakness Comparison: No comparison s available for review IMPRESSION: The heart is within normal limits o f size. The mediastinal and hilar contours are unremarkable. There is no focal consolidation, pleural effusion, or pneumothorax. No acute osseous abnormalit ies. Signed by: Alok Kerr MD on 07/07/2019 5:22 PM Dictated By : ALOK KERR MD 21 Transcribed By: GIN on 07/07/191721 COPY TO: CHAD MEJIA DO BASIC METABOLIC [id number] 02:41:00* Test Item Value Reference Range Interpretation Comments SODIUM (test code = NA) 140 mmol/L 136-145 N POTASSIUM (test code = K) 3.8 mmol/L 3.5-5.1 N CHLORIDE (test code = CL) 111.0 mmol/L 98-107 H CARBON DIOXIDE (test code = CO2) 21.0 mmol/L 21-32 N ANION GAP (test code = GAP) 11.8 10-20 N GLUCOSE (test code = GLU) 113 mg/dL 74-106 H BLOOD UREA NITROGEN (test code = BUN) 16 mg/dL 7-18 N GLOMERULAR FILTRATION RATE (test code = GFR) 51 mL/min >=60 Estimated GFR by using Modified MDRD formula.Chronic kidney disease is defined as either kidney damageor GFR <60 mL/min/1.73 m2 for >3 months. CREATININE (test code = CREAT) 1.30 mg/dL 0.55-1.02 H Note change in reference range due to change in reagent. BUN/CREATININE RATIO (test code = BUN/CREA) 12.4 10-20 N CALCIUM (test code = CA) 8.5 mg/dL 8.5-10.1 N BASIC METABOLIC QGZSK7228-04-61 02:35:00* Test Item Value Reference Range Interpretation Comments SODIUM (test code = NA) 140 mmol/L 136-145 N POTASSIUM (test code = K) 3.8 mmol/L 3.5-5.1 N CHLORIDE (test code = CL) 111.0 mmol/L 98-107 H CARBON DIOXIDE (test code = CO2) mmol/L 21-32 ANION GAP (test code = GAP) 10-20 GLUCOSE (test code = GLU) mg/dL 74-106 BLOOD UREA NITROGEN (test code = BUN) mg/dL 7-18 GLOMERULAR FILTRATION RATE (test code = GFR) mL/min >=60 CREATININE (test code = CREAT) mg/dL 0.55-1.02 BUN/CREATININE RATIO (test code = BUN/CREA) 10-20 CALCIUM (test code = CA) mg/dL 8.5-10.1 CBC W/AUTO [id number] 02:27:00* Test Item Value Reference Range Interpretation Comments WHITE BLOOD CELL (test code = WBC) 6.0 K/mm3 4.5-12.5 N RED BLOOD CELL (test code = RBC) 3.01 mill/mm3 3.7-5.2 L HEMOGLOBIN (test code = HGB) 9.0 gram/dL 11.5-15.5 L HEMATOCRIT (test code = HCT) 28.9 % 36.0-46.0 L MEAN CELL VOLUME (test code = MCV) 96.0 fL 80-98 N MEAN CELL HGB (test code = MCH) 29.9 picogram 27.0-33.0 N MEAN CELL HGB CONCETRATION (test code = MCHC) 31.1 gram/dL 33.0-36. 0 L RED CELL DISTRIBUTION WIDTH (test code = RDW) 13.7 % 11.6-16. 2 N RED CELL DISTRIBUTION WIDTH SD (test code = RDW-SD) 48.9 fL 37 .0-51.0 N PLATELET COUNT (test code = PLT) 260 K/mm3 150-450 N MEAN PLATELET VOLUME (test code = MPV) 9.5 fL 6.7-11.0 N NEUTROPHIL % (test code = NT%) 41.5 % 39.0-69.0 N IMMATURE GRANULOCYTE % (test code = IG%) 0.2 % 0.0-5.0 N LYMPHOCYTE % (test code = LY%) 43.0 % 25.0-55.0 N MONOCYTE % (test code = MO%) 12.6 % 0.0-10.0 H EOSINOPHIL % (test code = EO%) 2.2 % 0.0-5.0 N BASOPHIL % (test code = BA%) 0.5 % 0.0-1.0 N NUCLEATED RBC % (test code = NRBC%) 0.0 % 0-0 N NEUTROPHIL # (test code = NT#) 2.47 K/mm3 1.8-7.7 N IMMATURE GRANULOCYTE # (test code = IG#) 0.01 x10 3/uL 0-0.03 N LYMPHOCYTE # (test code = LY#) 2.56 K/mm3 1.0-5.0 N MONOCYTE # (test code = MO#) 0.75 K/mm3 0-0.8 N EOSINOPHIL # (test code = EO#) 0.13 K/mm3 0.0-0.5 N BASOPHIL # (test code = BA#) 0.03 K/mm3 0.0-0.2 N NUCLEATED RBC # (test code = NRBC#) 0.00 K/mm3 0.0-0.1 N MANUAL DIFF REQUIRED (test code = MDIFF) NO - MRI L-SPINE W/O [id number] 09:44:00 FAX: Stacy Walker MSN Edgar: B St: [facility] FAX: Merrill Hall MD [phone] Name: GALLO STOVER [facility] : 1960 Age/S: 58/F [address] [facility] Unit #: [id number] Loc: V.400[address] [place] [address] Phys: Stacy Walker MSN Acct: [id number] Dis Date: Status: ADM IN PHONE #: [phone] Exam Date: 03/24/2019 0900 FAX #: [phone] Reason: back pain, s/p fall EXAMS: CPT CODE: [id number] MRI L-SPINE W/O CONT 07749 HISTORY: back pain, s/p fall TECHNIQUE: Sagittal [...] 1 Signed Report (CONTINUED) FAX: Stacy Warren Edgar: B St: ADM FAX: Peterson Hall MD [phone] Name: GALLO STOVER [facility] : 1960 Age/S: 58/F [address] Unit #: [id number] Loc: [address] [place] [address] Phys: Stacy Walker MSN Acct: [id number] Dis Date: Status: ADM IN PHONE #: [phone] Exam Date: 03/24/2019 0900 FAX #: [phone] Reason: back pain, s/p fall EXAMS: CPT CODE: [id number] MRI L-SPINE W/O CONT 15927 < Continued> Additionally no subluxation is seen. Location: [facility] at 0944 Reported and signed by: Jayy Voss MD CC: Stacy Walker MSN; Merrill Hall MD Technologist: FEDERICO MORSERT - MRI Trnscrd Date/Time/By: 03/24/2019 (7920) : By: [email or web address] Orig Print D/T: S: 03/24/2019 (6421) PAGE 2 Signed Report CBC W/AUTO [id number] 02:12:00* Test Item Value Reference Range Interpretation Comments WHITE BLOOD CELL (test code = WBC) 6.7 K/mm3 4.5-12.5 N RED BLOOD CELL (test code = RBC) 3.06 mill/mm3 3.7-5.2 L HEMOGLOBIN (test code = HGB) 9.0 gram/dL 11.5-15.5 L HEMATOCRIT (test code = HCT) 29.5 % 36.0-46.0 L MEAN CELL VOLUME (test code = MCV) 96.4 fL 80-98 N MEAN CELL HGB (test code = MCH) 29.4 picogram 27.0-33.0 N MEAN CELL HGB CONCETRATION (test code = MCHC) 30.5 gram/dL 33.0-36. 0 L RED CELL DISTRIBUTION WIDTH (test code = RDW) 14.1 % 11.6-16. 2 N RED CELL DISTRIBUTION WIDTH SD (test code = RDW-SD) 49.6 fL 37 .0-51.0 N PLATELET COUNT (test code = PLT) 272 K/mm3 150-450 N MEAN PLATELET VOLUME (test code = MPV) 9.3 fL 6.7-11.0 N NEUTROPHIL % (test code = NT%) 46.4 % 39.0-69.0 N IMMATURE GRANULOCYTE % (test code = IG%) 0.3 % 0.0-5.0 N LYMPHOCYTE % (test code = LY%) 38.8 % 25.0-55.0 N MONOCYTE % (test code = MO%) 12.7 % 0.0-10.0 H EOSINOPHIL % (test code = EO%) 1.2 % 0.0-5.0 N BASOPHIL % (test code = BA%) 0.6 % 0.0-1.0 N NUCLEATED RBC % (test code = NRBC%) 0.0 % 0-0 N NEUTROPHIL # (test code = NT#) 3.10 K/mm3 1.8-7.7 N IMMATURE GRANULOCYTE # (test code = IG#) 0.02 x10 3/uL 0-0.03 N LYMPHOCYTE # (test code = LY#) 2.59 K/mm3 1.0-5.0 N MONOCYTE # (test code = MO#) 0.85 K/mm3 0-0.8 H EOSINOPHIL # (test code = EO#) 0.08 K/mm3 0.0-0.5 N BASOPHIL # (test code = BA#) 0.04 K/mm3 0.0-0.2 N NUCLEATED RBC # (test code = NRBC#) 0.00 K/mm3 0.0-0.1 N MANUAL DIFF REQUIRED (test code = MDIFF) NO BASIC METABOLIC [id number] 02:12:00* Test Item Value Reference Range Interpretation Comments SODIUM (test code = NA) 142 mmol/L 136-145 N POTASSIUM (test code = K) 4.1 mmol/L 3.5-5.1 N CHLORIDE (test code = CL) 112.0 mmol/L 98-107 H CARBON DIOXIDE (test code = CO2) 21.0 mmol/L 21-32 N ANION GAP (test code = GAP) 13.1 10-20 N GLUCOSE (test code = GLU) 103 mg/dL 74-106 N BLOOD UREA NITROGEN (test code = BUN) 21 mg/dL 7-18 H GLOMERULAR FILTRATION RATE (test code = GFR) 42 mL/min >=60 Estimated GFR by using Modified MDRD formula.Chronic kidney disease is defined as either kidney damageor GFR <60 mL/min/1.73 m2 for >3 months. CREATININE (test code = CREAT) 1.30 mg/dL 0.55-1.02 H Note change in reference range due to change in reagent. BUN/CREATININE RATIO (test code = BUN/CREA) 15.9 10-20 N CALCIUM (test code = CA) 8.6 mg/dL 8.5-10.1 N LIPID PROFILE (CORONARY RISK)2019-03-24 02:12:00* Test Item Value Reference Range Interpretation Comments TRIGLYCERIDES (test code = TRIG) 81 mg/dL 20-150 N CHOLESTEROL (test code = CHOL) 170 mg/dL 0-200 N CHOLESTEROL/HDL RATIO (test code = CHOLHDL) 3.0 RATIO 0-4.9 N RISK ASSOCIATED WITH CHOL/HDL RATIOS: Risk Male Female1/2 AVERAGE 3.43 3.27AVERAGE 4.97 4.442X AVERAGE 9.55 7.053X AVERAGE 23.39 11.04 REFERENCE VALUE IS RELATED TO RISK LEVELS ASRECOMMENDED BY THE [facility]. HEART, LUNG, AND BLOOD INST. HDL CHOLESTEROL (test code = HDL) 48 mg/dL 40-60 N LIPOPROTEIN LDL (test code = LDL) 110 mg/dL 100-129 N RN PERSONNEL, CONTACT PHYSICIAN IMMEDIATELY IF THIS IS A STROKE, AMI OR CAROTID STENOSIS PATIENT WHEN THE LDL >100 (1ST OCCURENCE, THIS ADMISSION) Reference Interval: mg/dL mmol/L Optimal <100 <2.6Near/above optimal 100-129 2.6- 3.3Borderline High 130-159 3.4-4.1High 160-189 4.1-4.9Very High >=190 >=4.9========= This LDL result is a direct measurement.========= [id number] 02:12:00* Test Item Value Reference Range Interpretation Comments MAGNESIUM (test code = MAG) 2.4 mg/dL 1.8-2.4 N BASIC METABOLIC [id number] 02:04:00* Test Item Value Reference Range Interpretation Comments SODIUM (test code = NA) 142 mmol/L 136-145 N POTASSIUM (test code = K) 4.1 mmol/L 3.5-5.1 N CHLORIDE (test code = CL) 112.0 mmol/L 98-107 H CARBON DIOXIDE (test code = CO2) mmol/L 21-32 ANION GAP (test code = GAP) 10-20 GLUCOSE (test code = GLU) mg/dL 74-106 BLOOD UREA NITROGEN (test code = BUN) mg/dL 7-18 GLOMERULAR FILTRATION RATE (test code = GFR) mL/min >=60 CREATININE (test code = CREAT) mg/dL 0.55-1.02 BUN/CREATININE RATIO (test code = BUN/CREA) 10-20 CALCIUM (test code = CA) mg/dL 8.5-10.1 LIPID PROFILE (CORONARY RISK)2019-03-24 02:04:00* Test Item Value Reference Range Interpretation Comments TRIGLYCERIDES (test code = TRIG) mg/dL 20-150 CHOLESTEROL (test code = CHOL) mg/dL 0-200 CHOLESTEROL/HDL RATIO (test code = CHOLHDL) RATIO 0-4.9 HDL CHOLESTEROL (test code = HDL) mg/dL 40-60 LIPOPROTEIN LDL (test code = LDL) mg/dL 100-129 [id number] 02:04:00* Test Item Value Reference Range Interpretation Comments MAGNESIUM (test code = MAG) mg/dL 1.8-2.4 BASIC METABOLIC [id number] 05:15:00* Test Item Value Reference Range Interpretation Comments SODIUM (test code = NA) 141 mmol/L 136-145 N POTASSIUM (test code = K) 5.3 mmol/L 3.5-5.1 H CHLORIDE (test code = CL) 111.0 mmol/L 98-107 H CARBON DIOXIDE (test code = CO2) 24.0 mmol/L 21-32 N ANION GAP (test code = GAP) 11.3 10-20 N GLUCOSE (test code = GLU) 100 mg/dL 74-106 N BLOOD UREA NITROGEN (test code = BUN) 26 mg/dL 7-18 H GLOMERULAR FILTRATION RATE (test code = GFR) 33 mL/min >=60 Estimated GFR by using Modified MDRD formula.Chronic kidney disease is defined as either kidney damageor GFR <60 mL/min/1.73 m2 for >3 months. CREATININE (test code = CREAT) 1.60 mg/dL 0.55-1.02 H Note change in reference range due to change in reagent. BUN/CREATININE RATIO (test code = BUN/CREA) 15.9 10-20 N CALCIUM (test code = CA) 8.9 mg/dL 8.5-10.1 N BASIC METABOLIC [id number] 05:10:00* Test Item Value Reference Range Interpretation Comments SODIUM (test code = NA) 141 mmol/L 136-145 N POTASSIUM (test code = K) 5.3 mmol/L 3.5-5.1 H CHLORIDE (test code = CL) 111.0 mmol/L 98-107 H CARBON DIOXIDE (test code = CO2) mmol/L 21-32 ANION GAP (test code = GAP) 10-20 GLUCOSE (test code = GLU) mg/dL 74-106 BLOOD UREA NITROGEN (test code = BUN) mg/dL 7-18 GLOMERULAR FILTRATION RATE (test code = GFR) mL/min >=60 CREATININE (test code = CREAT) mg/dL 0.55-1.02 BUN/CREATININE RATIO (test code = BUN/CREA) 10-20 CALCIUM (test code = CA) mg/dL 8.5-10.1 CBC W/AUTO [id number] 04:53:00* Test Item Value Reference Range Interpretation Comments WHITE BLOOD CELL (test code = WBC) 5.7 K/mm3 4.5-12.5 N RED BLOOD CELL (test code = RBC) 3.09 mill/mm3 3.7-5.2 L HEMOGLOBIN (test code = HGB) 9.4 gram/dL 11.5-15.5 L HEMATOCRIT (test code = HCT) 28.7 % 36.0-46.0 L MEAN CELL VOLUME (test code = MCV) 92.9 fL 80-98 N MEAN CELL HGB (test code = MCH) 30.4 picogram 27.0-33.0 N MEAN CELL HGB CONCETRATION (test code = MCHC) 32.8 gram/dL 33.0-36. 0 L RED CELL DISTRIBUTION WIDTH (test code = RDW) 13.6 % 11.6-16. 2 N RED CELL DISTRIBUTION WIDTH SD (test code = RDW-SD) 46.7 fL 37 .0-51.0 N PLATELET COUNT (test code = PLT) 311 K/mm3 150-450 N MEAN PLATELET VOLUME (test code = MPV) 9.4 fL 6.7-11.0 N NEUTROPHIL % (test code = NT%) 55.0 % 39.0-69.0 N IMMATURE GRANULOCYTE % (test code = IG%) 0.4 % 0.0-5.0 N LYMPHOCYTE % (test code = LY%) 33.5 % 25.0-55.0 N MONOCYTE % (test code = MO%) 9.5 % 0.0-10.0 N EOSINOPHIL % (test code = EO%) 1.1 % 0.0-5.0 N BASOPHIL % (test code = BA%) 0.5 % 0.0-1.0 N NUCLEATED RBC % (test code = NRBC%) 0.0 % 0-0 N NEUTROPHIL # (test code = NT#) 3.13 K/mm3 1.8-7.7 N IMMATURE GRANULOCYTE # (test code = IG#) 0.02 x10 3/uL 0-0.03 N LYMPHOCYTE # (test code = LY#) 1.90 K/mm3 1.0-5.0 N MONOCYTE # (test code = MO#) 0.54 K/mm3 0-0.8 N EOSINOPHIL # (test code = EO#) 0.06 K/mm3 0.0-0.5 N BASOPHIL # (test code = BA#) 0.03 K/mm3 0.0-0.2 N NUCLEATED RBC # (test code = NRBC#) 0.00 K/mm3 0.0-0.1 N MANUAL DIFF REQUIRED (test code = MDIFF) NO [id number] 22:23:00* Test Item Value Reference Range Interpretation Comments GLYCOSYLATED HEMOGLOBIN (HA1C) (test code = GLYHGB) 5.8 % HbA1 4. 8-6.0 N ESTIMATED AVERAGE GLUCOSE (test code = EAG) 120 MG/DL - XR PELVIS 1/2 [id number] 15:26:00 FAX: Delroy Alvarez [phone] [place]: [place] St: REG Name: GALLO BURRIS [facility] FSED : [birth year] Age/S: 58/F [address] Unit #: [id number] [facility] [address] Phys: Delroy Alvarez MD [place], [place] [address] Acct: [id number] Dis Date: Status: REG ER PHONE #: Exam Date: 03/22/2019 7877 FAX #: Reason: fall EXAMS: CPT CODE: [id number] XR PELVIS 1/2 VIEWS 02237 HISTORY: fall EXAM: AP pelvis Comparison: None [...] spine but no fracture or malalignment. Location: [facility] at 1526 Reported and signed by: Jayy Voss MD CC: Delroy Alvarez MD Technologist: LAURENCE PATTERSON RT(R)(CT) Trnscrd Date/Time/By: 03/22/2019 (0 301) : By: [email or web address] Orig Print D/T: S: 03/22/2019 (4055) PAGE 1 Signed Report - XR SHOULDER 2 + V [id number] 15:24:00 FAX: Delroy Alvarez [phone] [place]: [place] St: REG Name: GALLO BURRIS [facility] : [birth year] Age/S: 58/F [address] Unit #: [id number] Loc: [facility] [address] Phys: Delroy Alvarez MD [place], [place] [address] Acct: [id number] Dis Date: Status: REG ER PHONE #: Exam Date: 03/22/2019 1518 FAX #: Reason: fall EXAMS: CPT CODE: [id number] XR SHOULDER 2 + V RT [address] HISTORY: fall TECHN IQUE: Internal/external rotation AP [...] shoulder but no fracture or malalignment. Location: [facility] Electronically Signed by Jayy Voss MD on at 1524 Reported and signed by: Jayy Voss MD CC: Delroy Alvarez MD Mellissa hnologist: LAURENCE FINCH RT(R)(CT) Trnscrd Date/T pily/By: 03/22/2019 (1524) : By: [email or web address] Orig Print D/T: S: 9 (9380) PAGE 1 Signed Report URINALYSIS [id number] 14:56:00* Test Item Value Reference Range Interpretation Comments UA COLOR (test code = COLU) YELLOW YELLOW UA APPEARANCE (test code = APPU) SLIGHT HAZY CLEAR A UA GLUCOSE DIPSTICK (test code = DGLUU) NEGATIVE mg/dL NEGATIVE UA BILIRUBIN DIPSTICK (test code = BILU) NEGATIVE NEGATIVE UA KETONE DIPSTICK (test code = KETU) NEGATIVE mg/dL NEGATIVE UA SPECIFIC GRAVITY (test code = SGU) 1.010 1.001-1.035 UA BLOOD DIPSTICK (test code = IBIS) NEGATIVE NEGATIVE UA PH DIPSTICK (test code = ARNEL) 7.5 5.0-8.0 UA PROTEIN DIPSTICK (test code = PROU) NEGATIVE mg/dL Neg-15 UA UROBILINIOGEN DIPSTICK (test code = URO) 0.2 mg/dL 0.0-0.2 UA NITRITE DIPSTICK (test code = WILLIAM) NEGATIVE NEGATIVE UA LEUKOCYTE ESTERASE DIPSTICK (test code = LEUU) 2+ uL NEGA TIVE A UA MICROSCOPIC NEEDED? (test code = UAMICRO) YES UA WBC (test code = WBCU) >100 per HPF 0-5 A UA RBC (test code = RBCU) 3-5 per HPF 0-5 A UA EPITHELIAL CELLS (test code = EPIU) Few (2-5/hpf) per HPF Few UA BACTERIA (test code = BACU) MODERATE per HPF NONE A COMPREHENSIVE METABOLIC [id number] 14:49:00* Test Item Value Reference Range Interpretation Comments SODIUM (test code = NA) 138 mmol/L 128-145 N POTASSIUM (test code = K) 4.8 mmol/L 3.5-5.1 N CHLORIDE (test code = CL) 103.0 mmol/L 98-107 N CARBON DIOXIDE (test code = CO2) 25.0 mmol/L 22-29 N ANION GAP (test code = GAP) 15 mmol/L 10-20 N GLUCOSE (test code = GLU) 116 mg/dL 70-110 H BLOOD UREA NITROGEN (test code = BUN) 29 mg/dL 7-22 H CREATININE (test code = CREAT) 1.68 mg/dL 0.55-1.3 H BUN/CREATININE RATIO (test code = BUN/CREA) 17.3 10-20 N TOTAL PROTEIN (test code = PROT) 7.0 gram/dL 6.1-7.8 N ALBUMIN (test code = ALB) 3.5 g/dL 3.3-4.4 N GLOBULIN (test code = GLOB) 3.5 G/DL 1-10 N ALBUMIN/GLOBULIN RATIO (test code = A/G) 1.0 0.75-1.50 N CALCIUM (test code = CA) 9.0 mg/dL 8.0-10.5 N BILIRUBIN TOTAL (test code = BILT) 0.30 mg/dL 0.2-1.2 N SGOT/AST (test code = AST) 24 U/L 10-39 N SGPT/ALT (test code = ALT) 26 U/L 10-69 N ALKALINE PHOSPHATASE TOTAL (test code = ALKP) 128 U/L 50-139 N COMPREHENSIVE METABOLIC [id number] 14:44:00* Test Item Value Reference Range Interpretation Comments SODIUM (test code = NA) 138 mmol/L 128-145 N POTASSIUM (test code = K) 4.8 mmol/L 3.5-5.1 N CHLORIDE (test code = CL) 103.0 mmol/L 98-107 N CARBON DIOXIDE (test code = CO2) 25.0 mmol/L 22-29 N ANION GAP (test code = GAP) 15 mmol/L 10-20 N GLUCOSE (test code = GLU) 116 mg/dL 70-110 H BLOOD UREA NITROGEN (test code = BUN) 29 mg/dL 7-22 H CREATININE (test code = CREAT) 1.68 mg/dL 0.55-1.3 H BUN/CREATININE RATIO (test code = BUN/CREA) 17.3 10-20 N TOTAL PROTEIN (test code = PROT) gram/dL 6.4-8.2 ALBUMIN (test code = ALB) g/dL 3.4-5.0 GLOBULIN (test code = GLOB) G/DL 1-10 ALBUMIN/GLOBULIN RATIO (test code = A/G) 0.75-1.50 CALCIUM (test code = CA) 9.0 mg/dL 8.0-10.5 N BILIRUBIN TOTAL (test code = BILT) mg/dL 0.0-1.0 SGOT/AST (test code = AST) IUnit/L 15-37 SGPT/ALT (test code = ALT) IUnit/L 12-78 ALKALINE PHOSPHATASE TOTAL (test code = ALKP) IUnit/L 45-117 URINALYSIS [id number] 14:43:00* Test Item Value Reference Range Interpretation Comments UA COLOR (test code = COLU) YELLOW UA APPEARANCE (test code = APPU) CLEAR UA GLUCOSE DIPSTICK (test code = DGLUU) NEGATIVE mg/dL NEGATIVE UA BILIRUBIN DIPSTICK (test code = BILU) NEGATIVE NEGATIVE UA KETONE DIPSTICK (test code = KETU) NEGATIVE mg/dL NEGATIVE UA SPECIFIC GRAVITY (test code = SGU) 1.010 1.001-1.035 UA BLOOD DIPSTICK (test code = IBIS) NEGATIVE NEGATIVE UA PH DIPSTICK (test code = ARNEL) 7.5 5.0-8.0 UA PROTEIN DIPSTICK (test code = PROU) NEGATIVE mg/dL Neg-15 UA UROBILINIOGEN DIPSTICK (test code = URO) 0.2 mg/dL 0.0-0.2 UA NITRITE DIPSTICK (test code = WILLIAM) NEGATIVE NEGATIVE UA LEUKOCYTE ESTERASE DIPSTICK (test code = LEUU) 2+ uL NEGA TIVE A UA MICROSCOPIC NEEDED? (test code = UAMICRO) UA WBC (test code = WBCU) per HPF 0-5 UA RBC (test code = RBCU) per HPF 0-5 UA EPITHELIAL CELLS (test code = EPIU) per HPF Few UA BACTERIA (test code = BACU) per HPF NONE URINALYSIS [id number] 14:43:00* Test Item Value Reference Range Interpretation Comments UA COLOR (test code = COLU) YELLOW UA APPEARANCE (test code = APPU) CLEAR UA GLUCOSE DIPSTICK (test code = DGLUU) NEGATIVE mg/dL NEGATIVE UA BILIRUBIN DIPSTICK (test code = BILU) NEGATIVE NEGATIVE UA KETONE DIPSTICK (test code = KETU) NEGATIVE mg/dL NEGATIVE UA SPECIFIC GRAVITY (test code = SGU) 1.010 1.001-1.035 UA BLOOD DIPSTICK (test code = IBIS) NEGATIVE NEGATIVE UA PH DIPSTICK (test code = ARNEL) 7.5 5.0-8.0 UA PROTEIN DIPSTICK (test code = PROU) NEGATIVE mg/dL Neg-15 UA UROBILINIOGEN DIPSTICK (test code = URO) 0.2 mg/dL 0.0-0.2 UA NITRITE DIPSTICK (test code = WILLIAM) NEGATIVE NEGATIVE UA LEUKOCYTE ESTERASE DIPSTICK (test code = LEUU) 2+ uL NEGA TIVE A UA MICROSCOPIC NEEDED? (test code = UAMICRO) UA WBC (test code = WBCU) per HPF 0-5 UA RBC (test code = RBCU) per HPF 0-5 UA EPITHELIAL CELLS (test code = EPIU) per HPF Few UA BACTERIA (test code = BACU) per HPF NONE CBC W/AUTO [id number] 14:37:00* Test Item Value Reference Range Interpretation Comments WHITE BLOOD CELL (test code = WBC) 6.0 K/mm3 4.5-12.5 N RED BLOOD CELL (test code = RBC) 3.38 mill/mm3 3.7-5.2 L HEMOGLOBIN (test code = HGB) 10.3 gram/dL 11.5-15.5 L HEMATOCRIT (test code = HCT) 31.7 % 36.0-46.0 L MEAN CELL VOLUME (test code = MCV) 93.8 fL 80-98 N MEAN CELL HGB (test code = MCH) 30.5 picogram 27.0-33.0 N MEAN CELL HGB CONCETRATION (test code = MCHC) 32.5 gram/dL 33.0-36. 0 L RED CELL DISTRIBUTION WIDTH (test code = RDW) 13.1 % 11.6-16. 2 N RED CELL DISTRIBUTION WIDTH SD (test code = RDW-SD) 45.9 fL 37 .0-51.0 N PLATELET COUNT (test code = PLT) 315 K/mm3 150-450 N MEAN PLATELET VOLUME (test code = MPV) 9.1 fL 6.7-11.0 N NEUTROPHIL % (test code = NT%) 62.3 % 39.0-69.0 N LYMPHOCYTE % (test code = LY%) 27.5 % 25.0-55.0 N MONOCYTE % (test code = MO%) 8.6 % 0.0-10.0 N EOSINOPHIL % (test code = EO%) 0.7 % 0.0-5.0 N BASOPHIL % (test code = BA%) 0.7 % 0.0-1.0 N NEUTROPHIL # (test code = NT#) 3.77 K/mm3 1.8-7.7 N LYMPHOCYTE # (test code = LY#) 1.66 K/mm3 1.0-5.0 N MONOCYTE # (test code = MO#) 0.52 K/mm3 0-0.8 N EOSINOPHIL # (test code = EO#) 0.04 K/mm3 0.0-0.5 N BASOPHIL # (test code = BA#) 0.04 K/mm3 0.0-0.2 N MANUAL DIFF REQUIRED (test code = MDIFF) NO MR, BRAIN, WITHOUT [id number] 17:22:00FINAL REPORT MRI brain without contrast INDICATION: [...] Cervical spine degenerative changes. Signed: Jignesh Parry [facility] Verified Date/Time: 10/17/2017 17:22:10 Reading Location: [facility] Radiology Reading Room REHENSIVE METABOLIC [id number] 06:43:00* Test Item Value Reference Range Interpretation Comments TOTAL PROTEIN (BEAKER) (test code = 770) 6.1 gm/dL 6.0-8.5 ALBUMIN (BEAKER) (test code = 1145) 3.3 g/dL 3.5-5.0 L ALKALINE PHOSPHATASE (BEAKER) (test code = 346) 93 U/L 30-115 BILIRUBIN TOTAL (BEAKER) (test code = 377) 0.3 mg/dL 0.1-1.3 SODIUM (BEAKER) (test code = 381) 143 meq/L 135-148 POTASSIUM (BEAKER) (test code = 379) 4.8 meq/L 3.5-5.5 CHLORIDE (BEAKER) (test code = 382) 117 meq/L 98-106 H CO2 (BEAKER) (test code = 355) 19 meq/L 20-31 L BLOOD UREA NITROGEN (BEAKER) (test code = 354) 18 mg/dL 10-26 CREATININE (BEAKER) (test code = 358) 0.86 mg/dL 0.50-1.20 GLUCOSE RANDOM (BEAKER) (test code = 652) 101 mg/dL 70-110 CALCIUM (BEAKER) (test code = 697) 8.8 mg/dL 8.5-10.5 AST (SGOT) (BEAKER) (test code = 353) 16 U/L 5-40 ALT (SGPT) (BEAKER) (test code = 347) 17 U/L 6-50 EGFR (BEAKER) (test code = 1092) 82 mL/min/1.73 sq m ESTIMATED GFR IS NOT ACCURATE CREATININE CLEARANCE IN PREDICTING GLOMERULAR FILTRATION RATE. ESTIMATED GFR IS NOT APPLICABLE FOR DIALYSIS PATIENTS. TROPONIN [id number] 06:41:00* Test Item Value Reference Range Interpretation Comments TROPONIN I (BEAKER) (test code = 397) < ng/mL 0.00-0.15 Troponin I (TnI) levels [...] acidosis, acute neurological disease, and per sistent tachyarrhythmia.[id number] 06:36:00* Test Item Value Reference Range Interpretation Comments MAGNESIUM (BEAKER) (test code = 627) 2.5 mg/dL 1.5-3.0 CBC W/PLT COUNT & AUTO [id number] 06:33:00* Test Item Value Reference Range Interpretation Comments WHITE BLOOD CELL COUNT (BEAKER) (test code = 775) 4.9 K/ L 4.0- 10.0 RED BLOOD CELL COUNT (BEAKER) (test code = 761) 3.38 M/ L 4.00-5 .00 L HEMOGLOBIN (BEAKER) (test code = 410) 10.3 GM/DL 12.0-15.0 L HEMATOCRIT (BEAKER) (test code = 411) 30.8 % 36.0-45.0 L MEAN CORPUSCULAR VOLUME (BEAKER) (test code = 753) 91.3 fL 82. 0-99.0 MEAN CORPUSCULAR HEMOGLOBIN (BEAKER) (test code = 751) 30.4 pg 27.0-33.0 MEAN CORPUSCULAR HEMOGLOBIN CONC (BEAKER) (test code = 752) 33.3 GM/DL 32.0-36.0 RED CELL DISTRIBUTION WIDTH (BEAKER) (test code = 412) 14.8 % 12.0-15.0 PLATELET COUNT (BEAKER) (test code = 756) 258 K/CU MM 150-430 MEAN PLATELET VOLUME (BEAKER) (test code = 754) 8.0 fL 6.5-10 .5 NUCLEATED RED BLOOD CELLS (BEAKER) (test code = 413) 0 /100 WBC 0 -0 NEUTROPHILS RELATIVE PERCENT (BEAKER) (test code = 429) 48 % LYMPHOCYTES RELATIVE PERCENT (BEAKER) (test code = 430) 40 % MONOCYTES RELATIVE PERCENT (BEAKER) (test code = 431) 8 % EOSINOPHILS RELATIVE PERCENT (BEAKER) (test code = 432) 3 % BASOPHILS RELATIVE PERCENT (BEAKER) (test code = 437) 1 % NEUTROPHILS ABSOLUTE COUNT (BEAKER) (test code = 670) 2.40 K/ L 1.80-8.00 LYMPHOCYTES ABSOLUTE COUNT (BEAKER) (test code = 414) 2.00 K/ L 1.48-4.50 MONOCYTES ABSOLUTE COUNT (BEAKER) (test code = 415) 0.40 K/ L 0. 00-1.30 EOSINOPHILS ABSOLUTE COUNT (BEAKER) (test code = 416) 0.20 K/ L 0.00-0.50 BASOPHILS ABSOLUTE COUNT (BEAKER) (test code = 417) 0.00 K/ L 0. 00-0.20 URINALYSIS W/ [id number] 15:23:00* Test Item Value Reference Range Interpretation Comments COLOR (BEAKER) (test code = 470) Colorless CLARITY (BEAKER) (test code = 469) Clear SPECIFIC GRAVITY UA (BEAKER) (test code = 468) 1.011 1.001-1 .035 PH UA (BEAKER) (test code = 467) 8.0 5.0-8.0 PROTEIN UA (BEAKER) (test code = 464) Negative Negative GLUCOSE UA (BEAKER) (test code = 365) Negative Negative KETONES UA (BEAKER) (test code = 371) Negative Negative BILIRUBIN UA (BEAKER) (test code = 462) Negative Negative BLOOD UA (BEAKER) (test code = 461) Negative Negative NITRITE UA (BEAKER) (test code = 465) Negative Negative LEUKOCYTE ESTERASE UA (BEAKER) (test code = 466) Small Negat jerson A UROBILINOGEN UA (BEAKER) (test code = 463) < mg/dL 0.2-1.0 RBC UA (BEAKER) (test code = 519) 0 /HPF WBC UA (BEAKER) (test code = 520) 2 /HPF BACTERIA (BEAKER) (test code = 517) Rare MUCUS (BEAKER) (test code = 1574) Rare SQUAMOUS EPITHELIAL (BEAKER) (test code = 516) < /HPF SOURCE(BEAKER) (test code = 2795) HEPATIC FUNCTION [id number] 09:56:00* Test Item Value Reference Range Interpretation Comments TOTAL PROTEIN (BEAKER) (test code = 770) 7.3 gm/dL 6.0-8.5 ALBUMIN (BEAKER) (test code = 1145) 4.1 g/dL 3.5-5.0 BILIRUBIN TOTAL (BEAKER) (test code = 377) 0.2 mg/dL 0.1-1.3 BILIRUBIN DIRECT (BEAKER) (test code = 706) 0.1 mg/dL 0.0-0.5 ALKALINE PHOSPHATASE (BEAKER) (test code = 346) 109 U/L 30-115 AST (SGOT) (BEAKER) (test code = 353) 21 U/L 5-40 ALT (SGPT) (BEAKER) (test code = 347) 24 U/L 6-50 RAD, CHEST, 1 VIEW, NON [id number] 09:39:00Reason for exam:->NEUROLOGIC PROBLEMIs the patient ?->NoFINAL [...] MDReport Verified Date/Time: 10/16/2017 09:39:10 Reading Location: [facility] Diagnostic Imaging Reading Room - [facility] F1 1.310.12 , CTANGIO [id number] 08:56:00FINAL REPORT CLINICAL HISTORY: Stroke, aphasia TECHNIQUE: [...] cl ear. IMPRESSION: No evidence for a [place] proximal branch vessel occ lusion. No evidence of hemodynamically significant stenosis in the cervical car otid or vertebral arteries by NASCET criteria. Symmetrical appearing CT perfusio n maps. If clinically warranted, an MRI of the brain could be performed for furt her evaluation if there are no contraindications. Signed: Marc De La Garza MDReport Verified Date/Time: 10/16/2017 08:56:54 Reading Location: [facility], [place] Reading Room , CAROTID, [id number] 08:56:00Reason for exam:->NEUROLOGIC PROBLEMIs the patient ?->UnknownWhat [...] are clear. IMPRESSION: No evidence for a [place] proximal branch vessel occlusion. No evidence of hemodynamically significant stenosis in the cervical carotid or vertebral arteries by NASCET criteria. Symmetrical appearing CT perfusion maps. If clinically warranted, an MRI of the brain could be performed for further evaluation if there are no contraindications. Signed: Marc De La Garza MDReport Verified Date/Time: 10/16/2017 08:56:54 Reading Location: [facility], [place] Reading Room 18 08:56 AM CTA, BRAIN, CEREBRAL PERFUSION, WITH [id number] 08:56:00FINAL REPORT CLINICAL HISTORY: Stroke, aphasia TECHNIQUE: Contiguous contrast-enhanced axial images through the neck followed by axial im ages through the head with coronal and sagittal reformations to assess the arter ial circulation. CT perfusion was also performed with post processing on a works tation. 3-D reconstructions were performed using a volume rendered technique jed campbell on a workstation. This exam was performed [...] cl ear. IMPRESSION: No evidence for a [place] proximal branch vessel occ lusion. No evidence of hemodynamically significant stenosis in the cervical car otid or vertebral arteries by NASCET criteria. Symmetrical appearing CT perfusio n maps. If clinically warranted, an MRI of the brain could be performed for furt her evaluation if there are no contraindications. Signed: Marc De La Garza MDReport Verified Date/Time: 10/16/2017 08:56:54 Reading Location: [facility], [place] Reading Room 18 08:56 AM [id number] 08:46:00* Test Item Value Reference Range Interpretation Comments POC-CREATININE (ERNIE) (test code = 1859) 1.4 mg/dL 0.6-1.[address] [facility] [address] [facility] [address] POC-EGFR (ERNIE) (test code = 1860) mL/min/1.73M2 Insufficient clinical data to calculate estimated GFR TROPONIN [id number] 08:45:00* Test Item Value Reference Range Interpretation Comments TROPONIN I (ERNIE) (test code = 397) < ng/mL 0.00-0.15 Troponin I (TnI) levels [...] (BNP)2017-10-16 08:44:00* Test Item Value Reference Range Interpretation Comments B-TYPE NATRIURETIC PEPTIDE (BEAKER) (test code = 700) 29 pg/mL 0-100 BASIC METABOLIC [id number] 08:39:00* Test Item Value Reference Range Interpretation Comments SODIUM (BEAKER) (test code = 381) 138 meq/L 135-148 POTASSIUM (BEAKER) (test code = 379) 5.2 meq/L 3.5-5.5 CHLORIDE (BEAKER) (test code = 382) 111 meq/L 98-106 H CO2 (BEAKER) (test code = 355) 21 meq/L 20-31 BLOOD UREA NITROGEN (BEAKER) (test code = 354) 29 mg/dL 10-26 H CREATININE (BEAKER) (test code = 358) 1.47 mg/dL 0.50-1.20 H GLUCOSE RANDOM (BEAKER) (test code = 652) 113 mg/dL 70-110 H CALCIUM (BEAKER) (test code = 697) 9.2 mg/dL 8.5-10.5 EGFR (BEAKER) (test code = 1092) mL/min/1.73 sq m INSUFFICIENT CLINICAL DATA TO CALCULATE ESTIMATED GFR. [id number] 08:38:00* Test Item Value Reference Range Interpretation Comments MAGNESIUM (BEAKER) (test code = 627) 3.1 mg/dL 1.5-3.[address], BRAIN/STROKE [id number] 08:29:00Reason for exam:->NEUROLOGIC PROBLEM FINAL REPORT CT Head without contrast CLINICAL HISTORY: Jeffrey cee, aphasia TECHNIQUE: Contiguous axial images through the [...] port Verified Date/Time: 10/16/2017 08:29:48 [facility] Reading Room Electronically signed by: MARC DE LA GARZA M.D. on 10/05 08:29 AM [id number] 08:25:00* Test Item Value Reference Range Interpretation Comments PROTIME (BEAKER) (test code = 759) 13.2 seconds 11.8-14.4 INR (BEAKER) (test code = 370) 1.0 1.2-1.5 L PARTIAL THROMBOPLASTIN TIME (BEAKER) (test code = 760) 29.4 seconds 23.2-36.1 RECOMMENDED COUMADIN/WARFARIN INR THERAPY RANGESSTANDARD DOSE: 2.0 - 3.0 Inclu emmy: PROPHYLAXIS for venous thrombosis, systemic embolization; TREATMENT for navdeep ous thrombosis and/or pulmonary embolus.HIGH RISK: Target INR is 2.5-3.5 for pat ients with mechanical heart valves.CBC W/PLT COUNT & AUTO [id number] 08:18:00* Test Item Value Reference Range Interpretation Comments WHITE BLOOD CELL COUNT (BEAKER) (test code = 775) 5.9 K/ L 4.0- 10.0 RED BLOOD CELL COUNT (BEAKER) (test code = 761) 3.52 M/ L 4.00-5 .00 L HEMOGLOBIN (BEAKER) (test code = 410) 10.7 GM/DL 12.0-15.0 L HEMATOCRIT (BEAKER) (test code = 411) 32.2 % 36.0-45.0 L MEAN CORPUSCULAR VOLUME (BEAKER) (test code = 753) 91.5 fL 82. 0-99.0 MEAN CORPUSCULAR HEMOGLOBIN (BEAKER) (test code = 751) 30.3 pg 27.0-33.0 MEAN CORPUSCULAR HEMOGLOBIN CONC (BEAKER) (test code = 752) 33.2 GM/DL 32.0-36.0 RED CELL DISTRIBUTION WIDTH (BEAKER) (test code = 412) 14.8 % 12.0-15.0 PLATELET COUNT (BEAKER) (test code = 756) 255 K/CU MM 150-430 MEAN PLATELET VOLUME (BEAKER) (test code = 754) 7.4 fL 6.5-10 .5 NUCLEATED RED BLOOD CELLS (BEAKER) (test code = 413) 0 /100 WBC 0 -0 NEUTROPHILS RELATIVE PERCENT (BEAKER) (test code = 429) 43 % LYMPHOCYTES RELATIVE PERCENT (BEAKER) (test code = 430) 45 % MONOCYTES RELATIVE PERCENT (BEAKER) (test code = 431) 7 % EOSINOPHILS RELATIVE PERCENT (BEAKER) (test code = 432) 5 % BASOPHILS RELATIVE PERCENT (BEAKER) (test code = 437) 1 % NEUTROPHILS ABSOLUTE COUNT (BEAKER) (test code = 670) 2.60 K/ L 1.80-8.00 LYMPHOCYTES ABSOLUTE COUNT (BEAKER) (test code = 414) 2.60 K/ L 1.48-4.50 MONOCYTES ABSOLUTE COUNT (BEAKER) (test code = 415) 0.40 K/ L 0. 00-1.30 EOSINOPHILS ABSOLUTE COUNT (BEAKER) (test code = 416) 0.30 K/ L 0.00-0.50 BASOPHILS ABSOLUTE COUNT (BEAKER) (test code = 417) 0.00 K/ L 0. 00-0.20 POCT-GLUCOSE [id number] 08:14:00* Test Item Value Reference Range Interpretation Comments POC-GLUCOSE METER (BEAKER) (test code = 1538) 118 mg/dL 70-[address] [facility] [address] [facility] [address]
[2019-09-30] MEDS ORDERED: PANTOPRAZOLE 40 MG 10ML VIAL IV STA (17:28)
[2019-09-30 18:39] LABS: BASOPHILS % 0.4 % (0.0-1.0); EOSINOPHILS # (AUTO) 0.3 (0.0-0.4); EOSINOPHILS % 4.2 % (0.0-6.0); HEMATOCRIT 31.4 % (34.2-44.1); LYMPHOCYTES # (AUTO) 1.9 (1.0-3.2); LYMPHOCYTES % 26.8 % (18.0-39.1); MEAN CORPUSCULAR HEMOGLOBIN 28.3 pg (28-32); MEAN CORPUSCULAR HGB CONC 31.8 g/dL (31-35); MONOCYTES # (AUTO) 0.7 (0.2-0.8); MONOCYTES % 10.3 % (4.4-11.3); NEUTROPHILS % 57.3 % (38.7-80.0); PLATELET COUNT 380 x10e3/uL (140-360); RED BLOOD COUNT 3.53 x10e6/uL (3.6-5.1); RED CELL DISTRIBUTION WIDTH 14.9 % (11.7-14.4)
[2019-09-30 18:53] LABS: INR 1.04; PROTHROMBIN TIME 14.2 seconds (11.9-14.5)
[2019-09-30 18:54] LABS: PARTIAL THROMBOPLASTIN TIME 34.9 seconds (23.8-35.5)
[2019-09-30 19:04] LABS: ALANINE AMINOTRANSFERASE 15 IU/L (0-55); ALBUMIN 3.7 g/dL (3.5-5.0); ALBUMIN/GLOBULIN RATIO 0.9 (0.8-2.0); ALKALINE PHOSPHATASE 102 IU/L (40-150); ANION GAP 16.3 mmol/L (8-16); BLOOD UREA NITROGEN 11 mg/dL (7-26); BUN/CREATININE RATIO 10 (6-25); CALCIUM 9.4 mg/dL (8.4-10.2); CARBON DIOXIDE 23 mmol/L (22-29); CHLORIDE 96 mmol/L (98-107); CREATINE KINASE 186 IU/L (29-168); CREATININE, SERUM 1.09 mg/dL (0.57-1.11); EST GLOMERULAR FILTRATION RATE > 60 ML/MIN (60-); GLUCOSE 108 mg/dL (74-118); MAGNESIUM 2.2 MG/DL (1.3-2.1); POTASSIUM 3.3 mmol/L (3.5-5.1); SODIUM 132 mmol/L (136-145)
--- NOTE | 2019-09-30 19:18 | Emergency Department Note ---
History of Present Illnes History of Present Illness Chief Complaint: General Medicine Complaints History of Present Illness This is a 58 year old female months of sores to back of thighs and states they are causing her pain. pt aaox4. lives alone in an apartment and states upset no one to take care of her. Historian: Patient, Social Studies Department Chair/EMS Arrival Mode: [facility] Treatment QUALITY ASSURANCE PRACTICE MANAGER: See EMS Report Artificial Foliage Arranger Required: No Onset (how long ago): month(s) Location: POSTERIOR THIGHS Quality: PAIN Radiation: non-radiation Severity: severe Onset quality: gradual Duration (how long): month(s) Timing of current episode: constant Progression: unchanged Chronicity: chronic Context: recent illness Relieving factors: none Exacerbating factors: none Associated symptoms: denies other symptoms Past Medical/Family History Physician Review I have reviewed the patient's past medical and family history. Any updates have been documented here. Past Medical History Recent Fever: No Clinical Suspicion of Infectio: No New/Unexplained Change in Ment: No Past Medical History: Hypertension, Chronic Back Pain Social History Smoking Cessation: Never Smoker Counseling Performed: No Alcohol Use: None Any Illegal Drug Use: No TB Exposure/Symptoms: No Physically hurt or threatened: No Other Any Pre-Existing Lines (PICC,: No Is patient up to date on immun: Yes Last Flu: utd Last Pneumovax: utd Review of Systems Review of Systems Constitutional: no symptoms EENTM: no symptoms Cardiovascular: no symptoms Respiratory: no symptoms, dyspnea on exertion Gastrointestinal: no symptoms Genitourinary: no symptoms Musculoskeletal: as per HPI, joint pain, muscle pain Neurological: no symptoms Psychological: no symptoms Endocrine: no symptoms Hematological/Lymphatic: no symptoms Review of other systems All other systems reviewed and negative. Physical Exam Related Data Allergies: Coded Allergies: Penicillins (Verified Allergy, Intermediate, 07/08/19) Triage Vital Signs Vital Signs Date Time Temp Pulse Resp B/P (MAP) Pulse Ox O2 Delivery O2 Flow Rate FiO2 09/30/19 17:00 97.5 74 14 124/67 100 Physical Exam CONSTITUTIONAL Constitutional: morbidly obese HENT HENT: normocephalic, atraumatic, oropharynx clear/moist, nose normal HENT L/R: left ext ear normal, right ext ear normal EYES Eyes: PERRL, conjunctivae normal NECK Neck: ROM normal PULMONARY Pulmonary: effort normal, breath sounds normal CARDIOVASCULAR Cardiovascular: regular rhythm, heart sounds normal, capillary refill normal, normal rate GASTROINTESTINAL Abdominal: soft, nontender, bowel sounds normal GENITOURINARY Genitourinary: exam deferred SKIN Skin: other (STAGE 3-4 PRERSSURE ULCER ON RIGHT POSTERIOR THIGH, ST 2 SMALLER ULCER ON LEFT POST THIGH) MUSCULOSKELETAL Musculoskeletal: ROM normal NEUROLOGICAL Neurological: alert, oriented x 3, no gross motor or sensory deficits PSYCHOLOGICAL Psychological: mood/affect normal, judgement normal Results Laboratory Result Diagram: 09/30/19 1810 Laboratory Laboratory Tests Test 09/30/19 18:10 White Blood Count 6.91 x10e3/uL (4.8-10.8) Red Blood Count 3.53 x10e6/uL (3.6-5.1) Hemoglobin 10.0 g/dL (12.0-16.0) Hematocrit 31.4 % (34.2-44.1) Mean Corpuscular Volume 89.0 fL (81-99) Mean Corpuscular Hemoglobin 28.3 pg (28-32) Mean Corpuscular Hemoglobin Concent 31.8 g/dL (31-35) Red Cell Distribution Width 14.9 % (11.7-14.4) Platelet Count 380 x10e3/uL (140-360) Neutrophils (%) (Auto) 57.3 % (38.7-80.0) Lymphocytes (%) (Auto) 26.8 % (18.0-39.1) Monocytes (%) (Auto) 10.3 % (4.4-11.3) Eosinophils (%) (Auto) 4.2 % (0.0-6.0) Basophils (%) (Auto) 0.4 % (0.0-1.0) Neutrophils # (Auto) 4.0 (2.1-6.9) Lymphocytes # (Auto) 1.9 (1.0-3.2) Monocytes # (Auto) 0.7 (0.2-0.8) Eosinophils # (Auto) 0.3 (0.0-0.4) Basophils # (Auto) 0.0 (0.0-0.1) Absolute Immature Granulocyte (auto 0.07 x10e3/uL (0-0.1) Prothrombin Time 14.2 seconds (11.9-14.5) Prothromb Time International Ratio 1.04 Activated Partial Thromboplast Time 34.9 seconds (23.8-35.5) Sodium Level 132 mmol/L (136-145) Potassium Level 3.3 mmol/L (3.5-5.1) Chloride Level 96 mmol/L (98-107) Carbon Dioxide Level 23 mmol/L (22-29) Anion Gap 16.3 mmol/L (8-16) Blood Urea Nitrogen 11 mg/dL (7-26) Creatinine 1.09 mg/dL (0.57-1.11) Estimat Glomerular Filtration Rate > 60 ML/MIN (60-) BUN/Creatinine Ratio 10 (6-25) Glucose Level 108 mg/dL (74-118) Calcium Level 9.4 mg/dL (8.4-10.2) Magnesium Level 2.2 MG/DL (1.3-2.1) Total Bilirubin 0.5 mg/dL (0.2-1.2) Aspartate Amino Transf (AST/SGOT) 15 IU/L (5-34) Alanine Aminotransferase (ALT/SGPT) 15 IU/L (0-55) Alkaline Phosphatase 102 IU/L (40-150) Creatine Kinase 186 IU/L (29-168) Total Protein 7.7 g/dL (6.5-8.1) Albumin 3.7 g/dL (3.5-5.0) Globulin 4.0 g/dL (2.3-3.5) Albumin/Globulin Ratio 0.9 (0.8-2.0) Laboratory Tests Test 09/30/19 18:10 White Blood Count 6.91 x10e3/uL (4.8-10.8) Red Blood Count 3.53 x10e6/uL (3.6-5.1) Hemoglobin 10.0 g/dL (12.0-16.0) Hematocrit 31.4 % (34.2-44.1) Mean Corpuscular Volume 89.0 fL (81-99) Mean Corpuscular Hemoglobin 28.3 pg (28-32) Mean Corpuscular Hemoglobin Concent 31.8 g/dL (31-35) Red Cell Distribution Width 14.9 % (11.7-14.4) Platelet Count 380 x10e3/uL (140-360) Neutrophils (%) (Auto) 57.3 % (38.7-80.0) Lymphocytes (%) (Auto) 26.8 % (18.0-39.1) Monocytes (%) (Auto) 10.3 % (4.4-11.3) Eosinophils (%) (Auto) 4.2 % (0.0-6.0) Basophils (%) (Auto) 0.4 % (0.0-1.0) Neutrophils # (Auto) 4.0 (2.1-6.9) Lymphocytes # (Auto) 1.9 (1.0-3.2) Monocytes # (Auto) 0.7 (0.2-0.8) Eosinophils # (Auto) 0.3 (0.0-0.4) Basophils # (Auto) 0.0 (0.0-0.1) Absolute Immature Granulocyte (auto 0.07 x10e3/uL (0-0.1) Prothrombin Time 14.2 seconds (11.9-14.5) Prothromb Time International Ratio 1.04 Activated Partial Thromboplast Time 34.9 seconds (23.8-35.5) Lab results reviewed: Yes Imaging Imaging results reviewed: Yes Impressions cxr viewed by me - no acute cardiopulm process Diagnostics Tests Diagnostic test(s) reviewed: Yes Procedures 12 Lead ECG Interpretation Artificial Foliage Arranger: Interpreted by ED physician Date: September 30, 2019 Time: 18:12 Prior COFFEE HOST tracings: reviewed Rhythm: sinus rhythm Rate: normal (66) QRS axis: left Conduction: intraventricular conduction delay ST segments normal: Yes T waves flattening: I, aVL, V1, V2 Clinical Impression: abnormal ECG Critical Care Time Subsequent provider I assumed direction of critical care for this patient from another provider of my specialty. Assessment & Plan Assessment & Plan Final Impression: (1) Pressure ulcer Assessment & Plan D/W DR NEWMAN - ADMIT OBS Depart Disposition: ADMITTED Last Vital Signs Date Time Temp Pulse Resp B/P (MAP) Pulse Ox O2 Delivery O2 Flow Rate FiO2 09/30/19 18:44 98.1 79 18 130/119 97 Home Meds Active Scripts Apixaban (Eliquis) 5 Mg Tablet, 10 MG PO Q12HR for 7 Days Prov:MEREDITH NEWMAN MD 07/11/19 Reported Medications Hydrocodone Bit/Acetaminophen (HYDROCODON-ACETAMINOPHEN 5-325) 1 Each Tablet, 1 TAB PO Q6H PRN for Mild Pain (1-3) or Fever>100.8 07/08/19 Omeprazole (OMEPRAZOLE) 40 Mg Capsule.dr, 40 MG PO DAILY 07/08/19 Imipramine Hcl (IMIPRAMINE HCL) 25 Mg Tablet, 25 MG PO HS 07/08/19 Tizanidine Hcl (TIZANIDINE HCL) 4 Mg Tablet, 4 MG PO Q6H, TAB 07/08/19 Tolterodine Tartrate (TOLTERODINE TARTRATE) 2 Mg Tablet, 2 MG PO BID 07/08/19 Duloxetine Hcl (CYMBALTA) 20 Mg Capcr, 20 MG PO DAILY, #30 CAP 07/08/19 Metoprolol Tartrate (METOPROLOL TARTRATE) 25 Mg Tablet, 25 MG PO BID, TAB 07/08/19 Spironolactone (SPIRONOLACTONE) 25 Mg Tablet, 50 MG PO DAILY, #60 TAB 07/08/19 Furosemide (FUROSEMIDE) 40 Mg Tablet, 40 MG PO BID, #30 TAB 07/08/19 Topiramate (TOPIRAMATE) 100 Mg Tablet, 100 MG PO BID, #30 TAB 07/08/19 Gabapentin (GABAPENTIN) 300 Mg Capsule, 600 MG PO BID, #60 CAP 07/08/19 Medications in the ED Pantoprazole Sodium 40 mg ONCE STAT IV Last administered on 09/30/19at 18:35; Admin Dose 40 MG; Start 09/30/19 at 17:28; Stop 09/30/19 at 17:40; Status DC JESSE LOPEZ MD September 30, 2019 19:18
--- NOTE | 2019-09-30 19:19 | NUR ---
Received report from JEISON Pond; patient in room on stretcher, verbalizing concerns with being soiled, fresh sheets applied, tej-care provided, purewick placed on pt; pt in nad, breathing e/u, skin warm/dry; pt does have b/l breakdown to outer buttocks; cleaned and dressings in place, pt tolerated well; pt c/o pain to area, to inform ED MD and await orders; patient updated, call light in reach, will continue to monitor.
[2019-09-30] MEDS ORDERED: VANCOMYCIN 1GM/NS 250 ML 250 ML IV ONE (19:30)
[2019-09-30] MEDS ORDERED: SODIUM CHLORIDE 0.9% 1000ML 1,000 ML IV ONE (19:30)
[2019-09-30 20:00] VITALS: BP 132/66
[2019-09-30] MEDS: MORPHINE SULFATE INJ 4 MG/ML INJ 1ML IV PRN (20:00)
[2019-09-30] MEDS: ONDANSETRON HCL INJ 2MG/ML 2ML 2 MG/ML VIAL IV PRN (20:00)
[2019-09-30] MEDS: CEFTRIAXONE SOD 1 GM/NS 50 ML 50 ML IV SCH (20:00)
--- NOTE | 2019-09-30 20:41 | Diagnostic Imaging Report ---
Examination: Single AP view of the chest. COMPARISON: None. INDICATION: open wounds DISCUSSION: Lines/tubes: None. Lungs: The lungs are well inflated and clear. No pneumonia or pulmonary edema. Pleura: No pleural effusion or pneumothorax. Heart and mediastinum: The heart and the mediastinum are unremarkable. Bones and soft tissues: No acute bony abnormalities. IMPRESSION: 1. No acute cardiopulmonary abnormalities. Signed by: Dr. Jung Ireland M.D. on 09/30/2019 8:37 PM
[2019-09-30 20:49] VITALS: BP 132/66
[2019-09-30 22:10] LABS: BILIRUBIN,URINE NEGATIVE (NEGATIVE); CLARITY,URINE CLEAR (CLEAR); COLOR,URINE YELLOW (YELLOW); KETONES,URINE NEGATIVE (NEGATIVE); LEUKOCYTE ESTERASE ,URINE NEGATIVE (NEGATIVE); NITRITE,URINE NEGATIVE (NEGATIVE); PROTEIN,URINE DIPSTICK NEGATIVE (NEGATIVE); URINE UROBILINOGEN 0.2 mg/dL (0.2 - 1)
[2019-09-30 22:16] LABS: BACTERIA,URINE MODERATE /HPF; EPITHELIAL CELLS,URINE MANY /LPF
[2019-10-01] VITALS (7 sets, daily range): BP systolic 104–129; BP diastolic 49–66
[2019-10-01] MEDS: MORPHINE SULFATE INJ 4 MG/ML INJ 1ML IV PRN (04:45)
[2019-10-01] MEDS: ONDANSETRON HCL INJ 2MG/ML 2ML 2 MG/ML VIAL IV PRN (04:46)
[2019-10-01 05:17] LABS: BASOPHILS % 0.5 % (0.0-1.0); EOSINOPHILS # (AUTO) 0.2 (0.0-0.4); EOSINOPHILS % 3.9 % (0.0-6.0); HEMATOCRIT 29.5 % (34.2-44.1); HEMOGLOBIN 9.4 g/dL (12.0-16.0); LYMPHOCYTES # (AUTO) 1.6 (1.0-3.2); LYMPHOCYTES % 27.4 % (18.0-39.1); MEAN CORPUSCULAR HEMOGLOBIN 28.7 pg (28-32); MEAN CORPUSCULAR HGB CONC 31.9 g/dL (31-35); MEAN CORPUSCULAR VOLUME 90.2 fL (81-99); MONOCYTES # (AUTO) 0.7 (0.2-0.8); MONOCYTES % 11.5 % (4.4-11.3); NEUTROPHILS # (AUTO) 3.3 (2.1-6.9); NEUTROPHILS % 55.7 % (38.7-80.0); PLATELET COUNT 335 x10e3/uL (140-360); RED BLOOD COUNT 3.27 x10e6/uL (3.6-5.1); RED CELL DISTRIBUTION WIDTH 14.7 % (11.7-14.4)
[2019-10-01 05:37] LABS: ALANINE AMINOTRANSFERASE 12 IU/L (0-55); ALBUMIN 2.9 g/dL (3.5-5.0); ALBUMIN/GLOBULIN RATIO 0.9 (0.8-2.0); ALKALINE PHOSPHATASE 92 IU/L (40-150); ANION GAP 13.4 mmol/L (8-16); BLOOD UREA NITROGEN 8 mg/dL (7-26); BUN/CREATININE RATIO 10 (6-25); CALCIUM 8.4 mg/dL (8.4-10.2); CARBON DIOXIDE 22 mmol/L (22-29); CHLORIDE 103 mmol/L (98-107); CREATININE, SERUM 0.81 mg/dL (0.57-1.11); EST GLOMERULAR FILTRATION RATE > 60 ML/MIN (60-); GLUCOSE 109 mg/dL (74-118); POTASSIUM 3.4 mmol/L (3.5-5.1); SODIUM 135 mmol/L (136-145)
--- NOTE | 2019-10-01 07:08 | NUR ---
Received patient lying in bed with eyes closed. Respiration even and unlabored without SOB. Call light in reach.
--- NOTE | 2019-10-01 07:08 | NUR ---
H&P cc: physical deconditioning and buttock ulcers HPI: 58yoF, who lives a [facility], with physical deconditioning and chronic buttock ulcers--- PMH: UTI with ESBL Klebsiella, CKD3 due to HTN, Morbid obesity, lymphedema, mood d/o, chr back pain, sciatica, stage 2 right heel/toe/buttock ulcer, acue rhabdomyolysis, Left leg DVT PSHx; gastric bypass, cholecystectomy, hysteectomy, back, appendectomy Allergies; see emr FH/SH: no illiciits meds see MAR ROS: no f/c/s/N/V/D/JAVIER/vision changes/cp/sob/dizziness v/s; revd PE tired appearing anicteric ns1s2 mod bs soft nt nd chr leg changes skin dry flat affect a&ox3; Stage 2 ulcers on buttock and leg labs/meds; revd A/P: Stage 3 B/L buttock ulcers- LWC; cefriaxone; Severe physical deconditing and Severe Debility- would benefit from semi-electric hospital bed to reduce pressure at sites of ulcers and promote healing; THis positioning and repositioning is not possible without the semi-electric hospital bed. The head of her bed needs to be elevated more than 30 degrees at times to reduce pressure on ulcer sites; Left leg DVT- AC - eliquis. CKD3 due to HTN- f/u labs Hyponatremia- f/u Moderate anemia- follow; check anemia panel Physical deconditioning Mood d/o- cont home med Chr back pain- prn pain meds Constipation- bowel reg Severe Obesity - needs caloric restriction outpt BMI 48.7- as above Prop: pepcid on AC dispo: semi-electric hospital bed critical to the promotion of wound healing of B/L buttock ulcers in pt with severe obesity BMI 48.7 Basilio Portillo MD, PhD.
[2019-10-01] MEDS ORDERED: DOXYCYCLINE HY100 MG PO (07:10)
[2019-10-01] MEDS ORDERED: POTASSIUM CHLORIDE 20 MEQ TAB CR PO ONE (07:50)
--- NOTE | 2019-10-01 07:50 | NUR ---
WILL WORK WITH PT INSURANCE TO GET ITEMS REQUESTED, UNABLE TO SET UP HOME HEALTH WITH WOUND CARE UNTIL THEY SEE PATIENT AND PROVIDE DOCUMENTATION TO WHAT NEEDS TO BE DONE, SW WILL CONTINUE TO FOLLOW.
[2019-10-01] MEDS: SPIRONOLACTONE 25 MG TAB PO SCH (08:52)
[2019-10-01] MEDS: FUROSEMIDE 40 MG TAB PO SCH ×2 (08:53→17:13)
[2019-10-01] MEDS: DULOXETINE HCL 20 MG DELAYED RELEASE PO SCH (08:53)
[2019-10-01] MEDS: GABAPENTIN 300 MG CAP PO SCH ×2 (08:53→17:13)
[2019-10-01] MEDS: METOPROLOL TARTRATE 25 MG TAB PO SCH ×2 (08:53→17:00)
[2019-10-01] MEDS: PANTOPRAZOLE SOD 40 MG TABEC PO SCH (08:53)
[2019-10-01] MEDS: CEFTRIAXONE SOD 1 GM/NS 50 ML 50 ML IV SCH ×2 (08:54→21:52)
[2019-10-01] MEDS: TOPIRAMATE 100 MG TAB PO SCH ×2 (08:54→17:14)
[2019-10-01] MEDS: HYDROCODONE/APAP 5MG-325MG TAB PO PRN ×2 (09:50→21:33)
--- NOTE | 2019-10-01 12:07 | NUR ---
SPOKE WITH JENNIFER FROM [facility], THEY TAKE INSURANCE FAXED H AND P, AND ORDER TO COMPANY TO GET BED. ALSO FAXED TO [facility] TO REENSTATE HOME WITH WITH WOUND CARE.
[2019-10-01] MEDS: TIZANIDINE HCL 4 MG TAB PO SCH ×2 (12:11→17:14)
[2019-10-01] MEDS: TOLTERODINE TARTRATE 2 MG TAB PO SCH ×2 (12:11→17:22)
--- NOTE | 2019-10-01 13:26 | NUR ---
WOUND CARE CONSULT FOR 58 YO FEMALE HX OF MORBID DISABILITY, PRESSURE ULCERATIONS [place] 16 ON PUP STATUS AND INTERVENTIONS AND ALTERNATING PRESSURE MATTRESS LABS: WBC-5.91 HGB_9.4 GLUCOSE-109 SKIN ASSESSMENT COMPLETE PATIENT PRESENTS WITH LEFT MEDIAL GLUTE STG 2 ULCERATION 3CM X0.5CM X0.1CM LEFT GLUTE LATERAL STG 2 ULCERATION 0.8CM X0.8CM X0.1CM LEFT THIGH STG 2 ULCERATION 11CM X17CM X0.1CM SACRAL STG 1 ULCERATION 8CM X5CM RIGHT THIGH STG 2 ULCERATION 8CM X15CM X0.1CM RECOMMENDATIONS: NURSING TO CONTINUE TO MAINTAIN MODERATE PUP STATUS AND INTERVENTIONS AND ALTERNATING PRESSURE MATTRESS NURSING TO CONTINUE TO ASSIST PATIENT OUT OF BED FOR MEALS AND MUCH TOLERATED NURSING TO CONTINUE TO ASSIST PATIENT NEEDED WITH MEALS AND NUTRITIONAL SUPPLEMENTS TO ENSURE PROPER REQUIREMENTS FOR HEALING NURSING TO CONTINUE TO OFFLOAD FEET AND HEELS NEEDED WITH PILLOW SUSPENSION WHEN IN BED NURSING TO CLEAN LEFT MEDIAL GLUTE STG 2 ULCERATION , LEFT GLUTE LATERAL STG 2 ULCERATION , LEFT THIGH STG 2 ULCERATION , RIGHT THIGH STG 2 ULCERATION ,WITH NORMAL SALINE DAILY AND APPLY PURACOL COLLAGEN COVER WITH 4X4 AND TOP WITH ALLEVYN FOAM DRESSING NURSING TO APPLY ALLEVYN FOAM DRESSING DAILY TO SACRAL STG 1 ULCERATION Addendum: 10/01/19 at 1339 by Dustin Peoples RN Amended: Links added.
[2019-10-01] MEDS: APIXABAN 5 MG TABLET PO SCH (19:05)
--- NOTE | 2019-10-01 19:52 | NUR ---
Bedside report given to night nurse. Patient awake, alert, respiration even and unlabored without SOB. Call light in reach.
[2019-10-01] MEDS ORDERED: IMIPRAMINE HCL 50 MG TAB PO SCH (21:00)
[2019-10-02] VITALS: BP 109/52
--- NOTE | 2019-10-02 01:00 | NUR ---
Rounding: Made rounds on the patient and she was heavily sleeping at this time. Zanaflex administration was held until patient wakes up.
--- NOTE | 2019-10-02 02:45 | NUR ---
medical care administrator: Patient received her Zanaflex and Mobile PRN Request. She started requesting Gabapentin. Advised the patient that her Gabapentin is Scheduled 600mg x BID and that i was not able to admin PRN or extra dose as MD has orders in as is. Patient was upset visibly and started talking about how her pain Management medication is ""all Messed Up". Advised the patient that Dr. Portillo will be notified and this was done at 0750am.
[2019-10-02] MEDS: HYDROCODONE/APAP 5MG-325MG TAB PO PRN (03:03)
[2019-10-02] MEDS: TIZANIDINE HCL 4 MG TAB PO SCH ×4 (03:03→07:39)
[2019-10-02 04:00] VITALS: BP 107/51
--- NOTE | 2019-10-02 07:00 | NUR ---
received bedside report. pt is sleeping, no s/s of distress. call light within reach and bed safety in place
[2019-10-02] MEDS: CEFTRIAXONE SOD 1 GM/NS 50 ML 50 ML IV SCH (07:30)
--- NOTE | 2019-10-02 07:40 | NUR ---
EMERGENCY DEPARTMENT NURSE: Patient was not given Zanaflex 0600 because she was heavily sleeping and tried to wake up still an hour later and still unable to wake up spontaneously. A.M nurse notified. Dose marked as not given.
--- NOTE | 2019-10-02 07:45 | NUR ---
RECEIVED A CALL FROM [facility] THEY ARE UNABLE TO DELIVER BED TO HOME BECAUSE OF COVID RESTRICTIONS. WITH PERMISSION SENT INFORMATION TO [facility] TO SEE IF HAS ANY DAYS LEFT WAS TOLD STILL HAS 24 DAYS. WILL SEND CLINICALS TO [facility].
--- NOTE | 2019-10-02 08:35 | NUR ---
SPOKE WITH PT ABOUT OPTIONS. LET HER KNOW THAT I HAD SPOKEN WITH [facility] AND THEY ARE NOT ALLOWED TO DELIVER THE BED DUE TO THE COVID 19 REGULATION. LET HER KNOW THAT I HAD ASKED MEDICAL RESORT HOW MANY DAYS SHE HAS AVAILABLE. ASKED HER IF SHE WANTED TO GO TO A HALF-WAY, PERSONAL INTERMEDIATE OR A [facility] [employer] OPT[facility] A T A LONG-TERM FACILITY WHEN SHE WOULD HAVE TO GIVE UP HER SOCIAL SECURITY CHECK AND GET A PORTION BACK AND STAY SNF WITH THEM. SHE DECLINED ALL OPTIONS. SHE BECAME UPSET AND STATED I WAS BEING MEAN TO HER. I EXPLAINED THAT NO I WAS GIVING HER THE OPTIONS AVAILBLE. SHE STATES SHE WANTS TO GO HOME SHE DOESNT WANT TO GO TO ANY FACILITY, SHE BEGAN CRYING AND STATING WE ARE MAKING HER GIVE IUP HER APARTMENT. I EXPLAINED THAT I WOULD NOTIFY THE NURSE, DOCTOR AND APS. SHE STATED OKAY AND RE-ENFORCED THAT SHE WANTS TO GO HOME AND UNDERSTANDS THAT SHE IS NOT GOING TO BE ABLE TO GET THE BED DELIVERED AT THIS TIME. CALLED APS WORKER CAROLYN THAT PT GAVE INFORMATION ON, WHOM DIRECTED ME TO [facility]PERVISER [facility]ENT BARRAZA [phone], CALLED HIM AND LET HIM KNOW THE CONVERSATIONS HAD WITH PT. ASKED HIM IF THERE WAS ANYWAY THEY COULD ASSIST WITH THE DELIVERY OF THE BED, HE STATES NO THAT THEY WOULD HAVE TO RESOURCE IT OUT AND THEY HAVE THE SAME REGULATIONS OF NOT BEING ABLE TO DELIVER THE BED. HE STATES HE WILL SPEAK THE CM ASSIGNED TO HER CASE BECAUSE SHE HAS 2 OPEN CASES. LET HIM KNOW THE PT DECISION AND THE DR ORDER FOR DISCHARGE HOME. HE STATES HE WILL GET BACK TO ME IF HE NEEDS ANYTHING FURTHER.
[2019-10-02] MEDS: TOLTERODINE TARTRATE 2 MG TAB PO SCH (09:03)
[2019-10-02] MEDS: SPIRONOLACTONE 25 MG TAB PO SCH (09:03)
[2019-10-02] MEDS: FUROSEMIDE 40 MG TAB PO SCH (09:03)
[2019-10-02] MEDS: DULOXETINE HCL 20 MG DELAYED RELEASE PO SCH (09:03)
[2019-10-02] MEDS: APIXABAN 5 MG TABLET PO SCH (09:03)
[2019-10-02] MEDS: METOPROLOL TARTRATE 25 MG TAB PO SCH (09:03)
--- NOTE | 2019-10-02 09:03 | NUR ---
WAS CALLED BACK INTO ROOM. PT IN BETTER MOOD AND STATES SHE UNDERSTANDS BUT STILL WANTS TO RETURN HOME. STATES IS ABLE TO USE HER LEGS AND DO FOR HERSELF. SHE EXPLAINED THAT SHE FOR THE MOST PART DOES FOR HERSELF AND THAT WHEN SHE STARTS GETTING SICK IS WHEN SHE WILL NOT GET OUT OF THE WHEELCHAIR AND THAT IS WHEN THE HOME HEALTH WILL CALL THE AMBULANCE. SHE STATES SHE WILL BE GOOD. NURSE IN ROOM AND SHE WAS AGREEABLE TO PLAN.
[2019-10-02] MEDS: GABAPENTIN 300 MG CAP PO SCH (09:04)
[2019-10-02] MEDS: TOPIRAMATE 100 MG TAB PO SCH (09:04)
[2019-10-02] MEDS: PANTOPRAZOLE SOD 40 MG TABEC PO SCH (09:04)
[2019-10-02 09:23] VITALS: BP 135/64
[2019-10-02] MEDS ORDERED: ONDANSETRON HCL 4 MG ORAL DISINTEGRATING TAB PO PRN (09:45)
[2019-10-02 11:07] VITALS: BP 135/64
--- NOTE | 2019-10-02 11:19 | NUR ---
transferred care to DILCIA RODRIGUEZ. pt is alert, no s/s of distress. call light within reach and instructed pt to call RN for help
--- NOTE | 2019-10-02 13:10 | NUR ---
PT DISCHARGED HOME AT THIS TIME NO DISTRESS NOTED AT THIS TIME, NO C/O PAIN WHEN ASKED, PT LEFT VIA AMBULANCE SERVICE, IV SITE REMOVED ATTHIS TIME, NO SWELLING NO REDNESS TO SITE , PT WAS EDUCATED ON NEW PRESCRIPTIONS.
== END 2019-10-02 13:00 | disposition home or self-care (01) ==
LOC: ER 16:52 → ERHOLD 19:36 → MED/SURG2 20:50
PROVIDERS: ADMIT Internal Medicine; ATTEND Internal Medicine
DX: D64.9 Anemia, unspecified (principal); I12.9 Hypertensive chronic kidney disease with stage 1 through stage 4 chronic kidney disease, or unspecified chronic kidney disease; N18.3 Chronic kidney disease, stage 3 (moderate); L89.323 Pressure ulcer of left buttock, stage 3; L89.313 Pressure ulcer of right buttock, stage 3; Z86.718 Personal history of other venous thrombosis and embolism; Z79.01 Long term (current) use of anticoagulants; E23.6 Other disorders of pituitary gland; K59.00 Constipation, unspecified; Z68.42 Body mass index [BMI] 45.0-49.9, adult; F39 Unspecified mood [affective] disorder; G89.29 Other chronic pain; M54.9 Dorsalgia, unspecified
CPT/HCPCS: 36415 ×2; 71045; 80053 ×2; 81001; 82550; 82553; 83735; 83880; 84484; 85025 ×2; 85610; 85730; 87040; 87086; 87635; 93005; 97139 ×3; 97162; 97530; 99251; 99284; C9113; G0378 ×3; J0696 ×2; J2270 ×2; J2405 ×2; J3370; J7030; S0164 ×2

== ENCOUNTER 2019-10-19 20:18 | Inpatient (IN) | payer MEDICARE, OTHER ==
[~2019-10-19] VITALS: Ht 175.3 cm; Wt 147.4 kg
[~2019-10-19 20:18] MED LIST changes: +DOXYCYCLINE HY100 MG PO
[2019-10-19] MEDS ORDERED: SODIUM CHLORIDE 0.9% 1000ML 1,000 ML IV ONE (21:15)
[2019-10-19] MEDS ORDERED: LEVOFLOXACIN 500MG/D5W 100ML 100 ML IV ONE (21:15)
[2019-10-19 21:23] LABS: BASOPHILS % 0.3 % (0.0-1.0); EOSINOPHILS % 0.3 % (0.0-6.0); HEMATOCRIT 29.9 % (34.2-44.1); HEMOGLOBIN 9.6 g/dL (12.0-16.0); LYMPHOCYTES # (AUTO) 1.8 (1.0-3.2); LYMPHOCYTES % 17.8 % (18.0-39.1); MEAN CORPUSCULAR HEMOGLOBIN 28.3 pg (28-32); MEAN CORPUSCULAR HGB CONC 32.1 g/dL (31-35); MEAN CORPUSCULAR VOLUME 88.2 fL (81-99); MONOCYTES # (AUTO) 1.2 (0.2-0.8); MONOCYTES % 12.1 % (4.4-11.3); NEUTROPHILS # (AUTO) 6.8 (2.1-6.9); NEUTROPHILS % 68.9 % (38.7-80.0); PLATELET COUNT 444 x10e3/uL (140-360); RED BLOOD COUNT 3.39 x10e6/uL (3.6-5.1); RED CELL DISTRIBUTION WIDTH 15.3 % (11.7-14.4)
[2019-10-19 21:28] LABS: INR 1.1; PROTHROMBIN TIME 14.9 seconds (11.9-14.5)
[2019-10-19 21:29] LABS: PARTIAL THROMBOPLASTIN TIME 31.3 seconds (23.8-35.5)
[2019-10-19 21:36] LABS: ALBUMIN 3.1 g/dL (3.5-5.0); ALBUMIN/GLOBULIN RATIO 0.8 (0.8-2.0); ANION GAP 16.2 mmol/L (8-16); CREATININE, SERUM 1.21 mg/dL (0.57-1.11); POTASSIUM 3.2 mmol/L (3.5-5.1)
[2019-10-19 21:43] LABS: CREATINE KINASE MB 1.5 ng/mL (0-5.0)
--- NOTE | 2019-10-19 21:51 | Emergency Department Note ---
History of Present Illnes History of Present Illness Chief Complaint: Skin Rash or Abscess History of Present Illness This is a 58 year old female presents with complaint of generalized weakness, diarrhea for one week, also reports her right hand has been numb but just her hand and no nowhere else. Patient denies shortness of breath denies dysuria but does complaint of upper abdominal pain. . 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 Any updates have been documented here. Past Medical History Recent Fever: No Clinical Suspicion of Infectio: No New/Unexplained Change in Ment: No Past Medical History: Hypertension, UTI's, Chronic Back Pain Past Surgical History: None Social History Smoking Cessation: Never Smoker Alcohol Use: None Any Illegal Drug Use: No Family History Family history of heart diseas: No Other family history htn,dm Other Last Tetanus: UNK Review of Systems Review of Systems Constitutional: Reports no symptoms EENTM: Reports no symptoms Cardiovascular: Reports no symptoms Respiratory: Reports no symptoms Gastrointestinal: Reports as per HPI Genitourinary: Reports no symptoms Musculoskeletal: Reports no symptoms Integumentary: Reports no symptoms Neurological: Reports as per HPI Psychological: Reports no symptoms Endocrine: Reports no symptoms Hematological/Lymphatic: Reports no symptoms Physical Exam Related Data Allergies: Coded Allergies: Penicillins (Verified Allergy, Intermediate, 07/08/19) Triage Vital Signs Vital Signs Date Time Temp Pulse Resp B/P (MAP) Pulse Ox O2 Delivery O2 Flow Rate FiO2 10/19/19 20:51 99.6 95 22 134/87 99 Vital signs reviewed: Yes Physical Exam CONSTITUTIONAL Constitutional: Present well-developed, Present well-nourished HENT HENT: Present normocephalic, Present atraumatic, Present oropharynx clear/moist, Present nose normal HENT L/R: Present left ext ear normal, Present right ext ear normal EYES Eyes: Reports PERRL, Reports conjunctivae normal NECK Neck: Present ROM normal PULMONARY Pulmonary: Present effort normal, Present other (mildly decreased breath sounds at bases bilateral) CARDIOVASCULAR Cardiovascular: Present regular rhythm, Present heart sounds normal, Present capillary refill normal, Present tachycardia (102) GASTROINTESTINAL Abdominal: Present soft, Present bowel sounds normal, Present tender (moderate to upper abdomen, ) GENITOURINARY Genitourinary: Present exam deferred SKIN Skin: Present warm, Present dry, Present other (LARGE UNSTAGEABLE SACRAL DECUBITUS WITH DRAINAGE) MUSCULOSKELETAL Musculoskeletal: Present ROM normal NEUROLOGICAL Neurological: Present alert, Present oriented x 3, Present no gross motor or sensory deficits, Present other (neuro exam is non focal) PSYCHOLOGICAL Psychological: Present mood/affect normal, Present judgement normal Results Laboratory Result Diagram: 10/19/19209910/19/192099 Laboratory Laboratory Tests Test 10/19/19 22:30 10/19/19 21:50 10/19/19 21:00 Urine Color Yellow (YELLOW) Urine Clarity Clear (CLEAR) Urine pH 7 (5 - 7) Urine Specific Fisher 1.020 (1.010-1.025) Urine Protein Negative (NEGATIVE) Urine Glucose (UA) Negative (NEGATIVE) Urine Ketones Negative (NEGATIVE) Urine Blood Trace (NEGATIVE) Urine Nitrite Negative (NEGATIVE) Urine Bilirubin Negative (NEGATIVE) Urine Urobilinogen 0.2 mg/dL (0.2 - 1) Urine Leukocyte Esterase Negative (NEGATIVE) Urine RBC 0-5 /HPF (0-5) Urine WBC 6-10 /HPF (0-5) Urine Epithelial Cells Moderate /LPF (NONE) Urine Bacteria Few /HPF (NONE) White Blood Count 9.93 x10e3/uL (4.8-10.8) Red Blood Count 3.39 x10e6/uL (3.6-5.1) Hemoglobin 9.6 g/dL (12.0-16.0) Hematocrit 29.9 % (34.2-44.1) Mean Corpuscular Volume 88.2 fL (81-99) Mean Corpuscular Hemoglobin 28.3 pg (28-32) Mean Corpuscular Hemoglobin Concent 32.1 g/dL (31-35) Red Cell Distribution Width 15.3 % (11.7-14.4) Platelet Count 444 x10e3/uL (140-360) Neutrophils (%) (Auto) 68.9 % (38.7-80.0) Lymphocytes (%) (Auto) 17.8 % (18.0-39.1) Monocytes (%) (Auto) 12.1 % (4.4-11.3) Eosinophils (%) (Auto) 0.3 % (0.0-6.0) Basophils (%) (Auto) 0.3 % (0.0-1.0) Neutrophils # (Auto) 6.8 (2.1-6.9) Lymphocytes # (Auto) 1.8 (1.0-3.2) Monocytes # (Auto) 1.2 (0.2-0.8) Eosinophils # (Auto) 0.0 (0.0-0.4) Basophils # (Auto) 0.0 (0.0-0.1) Absolute Immature Granulocyte (auto 0.06 x10e3/uL (0-0.1) Prothrombin Time 14.9 seconds (11.9-14.5) Prothromb Time International Ratio 1.10 Activated Partial Thromboplast Time 31.3 seconds (23.8-35.5) Sodium Level 137 mmol/L (136-145) Potassium Level 3.2 mmol/L (3.5-5.1) Chloride Level 100 mmol/L (98-107) Carbon Dioxide Level 24 mmol/L (22-29) Anion Gap 16.2 mmol/L (8-16) Blood Urea Nitrogen 22 mg/dL (7-26) Creatinine 1.21 mg/dL (0.57-1.11) Estimat Glomerular Filtration Rate 55 ML/MIN (60-) BUN/Creatinine Ratio 18 (6-25) Glucose Level 121 mg/dL (74-118) Lactic Acid Level 1.9 mmol/L (0.5-2.0) Calcium Level 9.0 mg/dL (8.4-10.2) Total Bilirubin 0.6 mg/dL (0.2-1.2) Aspartate Amino Transf (AST/SGOT) 25 IU/L (5-34) Alanine Aminotransferase (ALT/SGPT) 11 IU/L (0-55) Alkaline Phosphatase 116 IU/L (40-150) Creatine Kinase 895 IU/L (29-168) Creatine Kinase MB 1.50 ng/mL (0-5.0) Troponin I 0.025 ng/mL (0-0.300) Total Protein 6.8 g/dL (6.5-8.1) Albumin 3.1 g/dL (3.5-5.0) Globulin 3.7 g/dL (2.3-3.5) Albumin/Globulin Ratio 0.8 (0.8-2.0) Amylase Level 61 U/L (25-125) Lipase 127 U/L (8-78) Laboratory Tests Test 10/19/19 21:00 White Blood Count 9.93 x10e3/uL (4.8-10.8) Red Blood Count 3.39 x10e6/uL (3.6-5.1) Hemoglobin 9.6 g/dL (12.0-16.0) Hematocrit 29.9 % (34.2-44.1) Mean Corpuscular Volume 88.2 fL (81-99) Mean Corpuscular Hemoglobin 28.3 pg (28-32) Mean Corpuscular Hemoglobin Concent 32.1 g/dL (31-35) Red Cell Distribution Width 15.3 % (11.7-14.4) Platelet Count 444 x10e3/uL (140-360) Neutrophils (%) (Auto) 68.9 % (38.7-80.0) Lymphocytes (%) (Auto) 17.8 % (18.0-39.1) Monocytes (%) (Auto) 12.1 % (4.4-11.3) Eosinophils (%) (Auto) 0.3 % (0.0-6.0) Basophils (%) (Auto) 0.3 % (0.0-1.0) Neutrophils # (Auto) 6.8 (2.1-6.9) Lymphocytes # (Auto) 1.8 (1.0-3.2) Monocytes # (Auto) 1.2 (0.2-0.8) Eosinophils # (Auto) 0.0 (0.0-0.4) Basophils # (Auto) 0.0 (0.0-0.1) Absolute Immature Granulocyte (auto 0.06 x10e3/uL (0-0.1) Prothrombin Time 14.9 seconds (11.9-14.5) Prothromb Time International Ratio 1.10 Activated Partial Thromboplast Time 31.3 seconds (23.8-35.5) Sodium Level 137 mmol/L (136-145) Potassium Level 3.2 mmol/L (3.5-5.1) Chloride Level 100 mmol/L (98-107) Carbon Dioxide Level 24 mmol/L (22-29) Anion Gap 16.2 mmol/L (8-16) Blood Urea Nitrogen 22 mg/dL (7-26) Creatinine 1.21 mg/dL (0.57-1.11) Estimat Glomerular Filtration Rate 55 ML/MIN (60-) BUN/Creatinine Ratio 18 (6-25) Glucose Level 121 mg/dL (74-118) Lactic Acid Level 1.9 mmol/L (0.5-2.0) Calcium Level 9.0 mg/dL (8.4-10.2) Total Bilirubin 0.6 mg/dL (0.2-1.2) Aspartate Amino Transf (AST/SGOT) 25 IU/L (5-34) Alanine Aminotransferase (ALT/SGPT) 11 IU/L (0-55) Alkaline Phosphatase 116 IU/L (40-150) Creatine Kinase 895 IU/L (29-168) Total Protein 6.8 g/dL (6.5-8.1) Albumin 3.1 g/dL (3.5-5.0) Globulin 3.7 g/dL (2.3-3.5) Albumin/Globulin Ratio 0.8 (0.8-2.0) Lab results reviewed: Yes Imaging Imaging results reviewed: Yes Impressions EXAM: CT Abdomen and Pelvis WITH contrast INDICATION: ^Y ^ABD PAIN, DIARRHEA ^[id number] ^2304 ^Y COMPARISON: None. TECHNIQUE: Abdomen and pelvis were scanned utilizing a multidetector helical scanner from the lung base to the pubic symphysis after administration of IV contrast. Coronal and sagittal reformations were obtained. Dose modulation, iterative reconstruction, and/or weight based adjustment of the mA/kV was utilized to reduce the radiation dose to as low as reasonably achievable. Routine protocol was performed. Scan was performed when during portal venous phase. IV CONTRAST: 100 mL of Isovue-370 ORAL CONTRAST: None COMPLICATIONS: None RADIATION DOSE: Total DLP: 789.92 mGy*cm Estimated effective dose: (DLP x 0.015 x size factor) mSv CTDIvol has been reviewed. It is below the limits set by the Radiation Protocol Committee (RPC). FINDINGS: Limited study due to body habitus and streak artifacts. LINES and TUBES: None. LOWER THORAX: Unremarkable HEPATOBILIARY: Hepatomegaly. No focal hepatic lesions. No biliary ductal dilation. GALLBLADDER: Absent. SPLEEN: No splenomegaly. PANCREAS: No focal masses or ductal dilatation. ADRENALS: No adrenal nodules KIDNEYS/URETERS: Kidneys enhance symmetrically. No hydronephrosis. No renal mass. Right renal inferior pole hypodensity is too small to characterize. No stones. GI TRACT: No abnormal distention, wall thickening, or evidence of bowel obstruction. Appendix is questionably visualized and within normal limits. Evidence of gastric surgery. PELVIC ORGANS/BLADDER: Hysterectomy. Bladder is collapsed. LYMPH NODES: No lymphadenopathy. VESSELS: There is mild atherosclerotic disease in the aorta and major arterial branches. PERITONEUM / RETROPERITONEUM: No free air or fluid. BONES: Degenerative changes of spine. SOFT TISSUES: Unremarkable. IMPRESSION: 1. No definite evidence of acute inflammatory process in the abdomen/pelvis, considering limitations of the study. Signed by: Dr. Max Singh MD on 10/19/2019 11:55 PM Dictated By: MAX SINGH MD 54 Transcribed By: GIN on 10/19/192354 COPY TO: LUISITO BIANCHI MD~ Procedure: [id number] DX/CHEST SINGLE (PORTABLE) Exam Date: 10/19/19 Exam Time: 2304 REPORT STATUS: Signed EXAMINATION: CHEST SINGLE (PORTABLE) INDICATION: ^Y ^WEAKNESS, SOB ^[id number] ^2305 ^Y COMPARISON: 09/30/2019 FINDINGS: AP view TUBES and LINES: None. LUNGS: Limited by body habitus. Lungs are well inflated. There is no evidence of pneumonia or pulmonary edema. PLEURA: No pleural effusion or pneumothorax. HEART AND MEDIASTINUM: The cardiomediastinal silhouette is unremarkable. Aorta is tortuous. BONES AND SOFT TISSUES: No acute osseous lesion. Soft tissues are unremarkable. UPPER ABDOMEN: No free air under the diaphragm. IMPRESSION: No acute thoracic abnormality. Signed by: Dr. Max Singh MD on 10/19/2019 11:56 PM Procedures 12 Lead ECG Interpretation ECG Interpretation : ECG: ECG 1 Station Agent: Interpreted by ED physician Date: Oct 19, 2019 Time: 22:20 Rhythm: sinus tachycardia Rate: tachycardia QRS axis: left ST segments normal: No (non specific changes) T waves normal: No (non specific changes) Clinical Impression: abnormal ECG Assessment & Plan Medical Decision Making MDM Patient with abdominal pain diarrhea and right hand numbness for a week. CBC, CMP, EKG, cardiac enzymes, amylase, lipase, UA, blood culture, urine culture, lactic acid, chest x-ray, CT abdomen and pelvis, Covid 19 ordered to eval/rule out, 19 infection, sepsis, myocardial infarction, pneumonia, UTI, pancreatitis, gallstones, cholecystitis, diverticulitis, colitis, electrolyte abnormality. 1 L normal saline IV ordered. Levaquin 500 mg IV ordered Patient CT abdomen negative lactic acid negative white count. Final decision at this time as patient is infected sacral wound most likely related to the diarrhea the patient has had for a week. I spoke with Dr. Newman admit patient and patient started on Levaquin and vancomycin.. Assessment & Plan Final Impression: (1) Infected wound (2) Morbid obesity (3) Diarrhea (4) Sacral wound Depart Disposition: ADMITTED Last Vital Signs Date Time Temp Pulse Resp B/P (MAP) Pulse Ox O2 Delivery O2 Flow Rate FiO2 10/19/19 21:03 98 14 127/88 99 10/19/19 20:51 99.6 Home Meds Active Scripts Doxycycline Hyclate (DOXYCYCLINE HYCLATE) 100 Mg Capsule, 100 MG PO Q12H for 10 Days, CAP Prov:MEREDITH NEWMAN MD 10/01/19 Reported Medications Hydrocodone Bit/Acetaminophen (HYDROCODON-ACETAMINOPHEN 5-325) 1 Each Tablet, 1 TAB PO Q6H PRN for Mild Pain (1-3) or Fever>100.8 07/08/19 Omeprazole (OMEPRAZOLE) 40 Mg Capsule.dr, 40 MG PO DAILY 07/08/19 Imipramine Hcl (IMIPRAMINE HCL) 25 Mg Tablet, 25 MG PO HS 07/08/19 Tizanidine Hcl (TIZANIDINE HCL) 4 Mg Tablet, 4 MG PO Q6H, TAB 07/08/19 Tolterodine Tartrate (TOLTERODINE TARTRATE) 2 Mg Tablet, 2 MG PO BID 07/08/19 Duloxetine Hcl (CYMBALTA) 20 Mg Capcr, 20 MG PO DAILY, #30 CAP 07/08/19 Metoprolol Tartrate (METOPROLOL TARTRATE) 25 Mg Tablet, 25 MG PO BID, TAB 07/08/19 Spironolactone (SPIRONOLACTONE) 25 Mg Tablet, 50 MG PO DAILY, #60 TAB 07/08/19 Furosemide (FUROSEMIDE) 40 Mg Tablet, 40 MG PO BID, #30 TAB 07/08/19 Topiramate (TOPIRAMATE) 100 Mg Tablet, 100 MG PO BID, #30 TAB 07/08/19 Gabapentin (GABAPENTIN) 300 Mg Capsule, 600 MG PO BID, #60 CAP 07/08/19 Medications in the ED Sodium Chloride 1,000 ml @ 999 mls/hr Q1H1M ONCE IV ; Start 10/19/19 at 21:15; Stop 10/19/19 at 22:15 Levofloxacin/ Dextrose 100 ml @ 100 mls/hr NOW ONCE IV ; Start 10/19/19 at 21:15; Stop 10/19/19 at 22:14 LUISITO BIANCHI MD Oct 19, 2019 21:51
[2019-10-19 21:58] LABS: AMYLASE 61 U/L (25-125); LIPASE 127 U/L (8-78)
[2019-10-19 23:30] LABS: BILIRUBIN,URINE NEGATIVE (NEGATIVE); CLARITY,URINE CLEAR (CLEAR); COLOR,URINE YELLOW (YELLOW); KETONES,URINE NEGATIVE (NEGATIVE); LEUKOCYTE ESTERASE ,URINE NEGATIVE (NEGATIVE); NITRITE,URINE NEGATIVE (NEGATIVE); PROTEIN,URINE DIPSTICK NEGATIVE (NEGATIVE); URINE UROBILINOGEN 0.2 mg/dL (0.2 - 1)
[2019-10-19 23:54] LABS: BACTERIA,URINE FEW /HPF; EPITHELIAL CELLS,URINE MODERATE /LPF; RBC,URINE 0-5 /HPF (0-5)
--- NOTE | 2019-10-19 23:59 | Diagnostic Imaging Report ---
EXAM: CT Abdomen and Pelvis WITH contrast INDICATION: ^Y ^ABD PAIN, DIARRHEA ^[id number] ^2305 ^Y COMPARISON: None. TECHNIQUE: Abdomen and pelvis were scanned utilizing a multidetector helical scanner from the lung base to the pubic symphysis after administration of IV contrast. Coronal and sagittal reformations were obtained. Dose modulation, iterative reconstruction, and/or weight based adjustment of the mA/kV was utilized to reduce the radiation dose to as low as reasonably achievable. Routine protocol was performed. Scan was performed when during portal venous phase. IV CONTRAST: 100 mL of Isovue-370 ORAL CONTRAST: None COMPLICATIONS: None RADIATION DOSE: Total DLP: 789.92 mGy*cm Estimated effective dose: (DLP x 0.015 x size factor) mSv CTDIvol has been reviewed. It is below the limits set by the Radiation Protocol Committee (RPC). FINDINGS: Limited study due to body habitus and streak artifacts. LINES and TUBES: None. LOWER THORAX: Unremarkable HEPATOBILIARY: Hepatomegaly. No focal hepatic lesions. No biliary ductal dilation. GALLBLADDER: Absent. SPLEEN: No splenomegaly. PANCREAS: No focal masses or ductal dilatation. ADRENALS: No adrenal nodules KIDNEYS/URETERS: Kidneys enhance symmetrically. No hydronephrosis. No renal mass. Right renal inferior pole hypodensity is too small to characterize. No stones. GI TRACT: No abnormal distention, wall thickening, or evidence of bowel obstruction. Appendix is questionably visualized and within normal limits. Evidence of gastric surgery. PELVIC ORGANS/BLADDER: Hysterectomy. Bladder is collapsed. LYMPH NODES: No lymphadenopathy. VESSELS: There is mild atherosclerotic disease in the aorta and major arterial branches. PERITONEUM / RETROPERITONEUM: No free air or fluid. BONES: Degenerative changes of spine. SOFT TISSUES: Unremarkable. IMPRESSION: 1. No definite evidence of acute inflammatory process in the abdomen/pelvis, considering limitations of the study. Signed by: Dr. Max Wilson MD on 10/19/2019 11:55 PM
--- NOTE | 2019-10-20 | Diagnostic Imaging Report ---
EXAMINATION: CHEST SINGLE (PORTABLE) INDICATION: ^Y ^WEAKNESS, SOB ^[id number] ^2305 ^Y COMPARISON: 09/30/2019 FINDINGS: AP view TUBES and LINES: None. LUNGS: Limited by body habitus. Lungs are well inflated. There is no evidence of pneumonia or pulmonary edema. PLEURA: No pleural effusion or pneumothorax. HEART AND MEDIASTINUM: The cardiomediastinal silhouette is unremarkable. Aorta is tortuous. BONES AND SOFT TISSUES: No acute osseous lesion. Soft tissues are unremarkable. UPPER ABDOMEN: No free air under the diaphragm. IMPRESSION: No acute thoracic abnormality. Signed by: Dr. Max Wilson MD on 10/19/2019 11:56 PM
[2019-10-20] MEDS ORDERED: ACETAMINOPHEN 325 MG TAB ONE (01:41)
[2019-10-20] MEDS ORDERED: ACETAMINOPHEN 325 MG TAB PO ONE (01:45)
[2019-10-20] MEDS ORDERED: SODIUM CHLORIDE 0.9% 50ML 50 ML ONE (02:20)
[2019-10-20] MEDS ORDERED: IOPAMIDOL 370 MG/ML 200 ML INFUS..BTL INJ ONE (02:20)
[2019-10-20] MEDS ORDERED: LEVOFLOXACIN 500MG/D5W 100ML 100 ML IV SCH (02:30)
[2019-10-20] MEDS ORDERED: VANCOMYCIN 1GM/NS 250 ML 250 ML IV SCH (02:30)
[2019-10-20] MEDS: SODIUM CHLORIDE 0.9% 1000ML 1,000 ML IV SCH ×3 (03:12→21:56)
--- NOTE | 2019-10-20 03:24 | NUR ---
PT REPORTS ITCHING TO BILATERAL LOWER EXTREMITIES. PT DENIES HX OF ALLERGY TO VANCOMYCIN. VANCOMYCIN STOPPED AT THIS TIME. NO REDNESS NOTED TO BODY. ER MD NOTIFIED AND AWARE.
[2019-10-20] MEDS ORDERED: DIPHENHYDRAMINE HCL INJ 50 MG/ML VIAL IV ONE (03:30)
[2019-10-20] MEDS ORDERED: ONDANSETRON HCL INJ 2MG/ML 2ML 2 MG/ML VIAL IV STA (03:33)
--- NOTE | 2019-10-20 05:20 | NUR ---
H&P cc: diarrhea and buttock wound infection HPI: 58yoF, developed diarrhea and buttock wound infection. Pt obtunded in ED due to narcotics, improved after narcan; CT head ordered. PMH: UTI with ESBL Klebsiella, CKD3 due to HTN, Morbid obesity, lymphedema, mood d/o, chr back pain, sciatica, stage 2 right heel/toe/buttock ulcer, acue rhabdomyolysis, Left leg DVT PSHx; gastric bypass, cholecystectomy, hysteectomy, back, appendectomy Allergies; see emr FH/SH: no illiciits meds see MAR ROS: unobtainable v/s; revd PE tired appearing anicteric ns1s2 mod bs soft nt nd chr leg changes skin dry flat affect a&ox3; Stage 3 ulcers on buttock and leg labs/meds; revd A/P: Diarrhea- IV flagyl UTI- IV ceftriaxone Hypokalemia- replace; recheck Acute rhabdomyolysis- IVF CHON- IVF Acute Metabolic Encephalopathy/Obtundation- narcan; limit narcotics Stage 3 B/L buttock ulcers- LWC; cefriaxone; Severe physical deconditing and Severe Debility- already set up with hospital bed; start PT here; Left leg DVT- AC - eliquis. CKD3 due to HTN- f/u labs Moderate anemia- follow; check anemia panel Chr back pain- prn pain meds Constipation- bowel reg Severe Obesity - needs caloric restriction outpt BMI 48- as above Prop: pepcid on AC dispo: SNF tiara Portillo MD, PhD.
[2019-10-20] MEDS ORDERED: ZOLPIDEM TARTRATE 5 MG TAB PO PRN (05:30)
[2019-10-20] MEDS ORDERED: ACETAMINOPHEN 325 MG TAB PO PRN (05:30)
[2019-10-20] MEDS ORDERED: AZTREONAM 0.5 GM in WATER STERILE 10ML VIAL 10 ML IV SCH (06:00)
[2019-10-20] MEDS: HYDROCODONE/APAP 5MG-325MG TAB PO PRN ×3 (06:22→23:43)
[2019-10-20] MEDS: TIZANIDINE HCL 4 MG TAB PO SCH ×4 (06:22→23:53)
--- NOTE | 2019-10-20 07:00 | NUR ---
BEDSIDE REPORT GIVEN TO ONCOMING NURSE, Norm TRIPATHI RN.
--- NOTE | 2019-10-20 07:12 | NUR ---
ADMITTING PHYSICIAN, DR. Wilian NEWMAN, NOTIFIED OF PTS STATUS, HYPOTENSION AT 81/43 FOLLOWING ADMINISTRATION OF NORFLEX AND HYDROCODONE 5/325MG; NEW ORDER RECEIVED FOR 1 LITER NS BOLUS.
[2019-10-20] MEDS: NALOXONE HCL 2MG/2 ML SYRINGE IV ONE ×2 (07:16→07:24)
[2019-10-20] MEDS ORDERED: SODIUM CHLORIDE 0.9% 1000ML 1,000 ML ONE (07:19)
[2019-10-20] MEDS ORDERED: SODIUM CHLORIDE 0.9% 1000ML 1,000 ML IV STA (07:20)
[2019-10-20] MEDS ORDERED: NALOXONE HCL 2MG/2 ML SYRINGE ONE (07:28)
[2019-10-20] MEDS ORDERED: NALOXONE HCL 2MG/2 ML SYRINGE IV ONE ×2 (07:30→07:45)
--- NOTE | 2019-10-20 07:31 | NUR ---
ALYSE RUIZ RN SPOKE TO DR. Wilian NEWMAN, NEW ORDER RECEIVED FOR NARCAN 1 MG IVP X2
[2019-10-20] MEDS: DULOXETINE HCL 20 MG DELAYED RELEASE PO SCH (07:33)
[2019-10-20] MEDS: METOPROLOL TARTRATE 25 MG TAB PO SCH ×2 (07:33→17:38)
[2019-10-20] MEDS: GABAPENTIN 300 MG CAP PO SCH ×2 (07:33→17:38)
--- NOTE | 2019-10-20 07:42 | NUR ---
PER DR. NEWMAN, NEW ORDER RECEIVED FOR LIZ ALEXANDRA
[2019-10-20] MEDS ORDERED: SODIUM CHLORIDE 0.9% 500ML 500 ML IV ONE (07:45)
[2019-10-20] MEDS: NALOXONE HCL 2 MG in SODIUM CHLORIDE 0.9% 500ML 500 ML IV SCH ×2 (08:59→23:00)
[2019-10-20] MEDS: HEPARIN SOD (PORCINE) 5,000 UNIT/ML VIAL SC SCH ×2 (10:32→21:56)
--- NOTE | 2019-10-20 10:43 | NUR ---
SPOKE WITH PT ABOUT SNF ORDER. GAVE LIST IN NETWORK, SHE STATES SHE WILL THINK ABOUT IT, BUT WANTS [facility] DID GET COPIES OF MEDICARE CARE, TDL, SSN, AND [employer]SPRING CARDS AND GAVE TO REGISTRATION TO BE SCANNED INTO SYSTEM. THE PRIMARY IS [facility]. SHE IS SUPPOSED TO BE GOING TO [facility] WHEN READY. WAITING ON PHYSICAL THERAPY AND WOUND CARE EVALS TO BE ABLE TO COMPLETE THE SNF REFERRAL.
[2019-10-20] MEDS: TOLTERODINE TARTRATE 2 MG TAB PO SCH ×2 (11:41→17:37)
[2019-10-20] MEDS: TOPIRAMATE 100 MG TAB PO SCH ×2 (11:41→17:38)
[2019-10-20] MEDS: PANTOPRAZOLE SOD 40 MG TABEC PO SCH (11:41)
[2019-10-20] MEDS: AZTREONAM (AZACTAM) 0.5 GM in SODIUM CHLORIDE 0.9% 50ML 50 ML IV SCH ×2 (12:06→17:38)
--- NOTE | 2019-10-20 13:14 | NUR ---
Recvd patient from ER . AAOx3, Not in any distress, assessment done
[2019-10-20] MEDS: ONDANSETRON HCL INJ 2MG/ML 2ML 2 MG/ML VIAL IV PRN (15:02)
[2019-10-20 15:50] VITALS: BP 132/51
[2019-10-20 16:00] VITALS: BP 132/51
--- NOTE | 2019-10-20 16:24 | Diagnostic Imaging Report ---
EXAMINATION: Head CT HISTORY: Altered mental status, infection, diarrhea COMPARISON: Head CT 07/07/2019 TECHNIQUE: Helical axial images of the head were obtained. Reformatted coronal and sagittal images from the axial data. Dose modulation, iterative reconstruction, and/or weight based adjustment of the mA/kV was utilized to reduce the radiation dose to as low as reasonably achievable. Image quality: Motion/streaking artifact limits the evaluation of the skull base and posterior cranial fossa. FINDINGS: Parenchyma: 1. No abnormal densities. 2. No mass or hemorrhage. No CT evidence of acute territorial vascular insult. Extra-axial spaces:No abnormal density. No extra-axial fluid collections Brain volume: Normal for age. Ventricles: No hydrocephalus or displacement. Arteries: No density suggestive of thrombus. Dural sinuses: No abnormal density. Foramen magnum: No mass, Chiari malformation, or basilar invagination. Sella: No obvious mass. Paranasal/mastoid sinuses: Imaged portions unremarkable. Skull/Scalp: No lytic or blastic lesions. No fractures. IMPRESSION: No intracranial abnormalities, unchanged compared to head CT of 07/07/2019. Signed by: Dr. Stephy Serrano M.D. on 10/20/2019 4:21 PM
--- NOTE | 2019-10-20 18:48 | NUR ---
patient resting in bed, cleaned and put Allevyn dressing on the wound site, Alert with no distress this time,call light in reach
[2019-10-20 20:00] VITALS: BP 102/55
[2019-10-21] VITALS (9 sets, daily range): BP systolic 102–144; BP diastolic 54–69
[2019-10-21] MEDS: SODIUM CHLORIDE 0.9% 1000ML 1,000 ML IV SCH ×2 (01:16→11:13)
[2019-10-21] MEDS: AZTREONAM (AZACTAM) 0.5 GM in SODIUM CHLORIDE 0.9% 50ML 50 ML IV SCH ×3 (01:17→17:51)
[2019-10-21] MEDS: NALOXONE HCL 2 MG in SODIUM CHLORIDE 0.9% 500ML 500 ML IV SCH (04:00)
[2019-10-21 06:11] LABS: BASOPHILS % 0.5 % (0.0-1.0); EOSINOPHILS # (AUTO) 0.1 (0.0-0.4); EOSINOPHILS % 1.6 % (0.0-6.0); HEMATOCRIT 25.7 % (34.2-44.1); HEMOGLOBIN 8.2 g/dL (12.0-16.0); MEAN CORPUSCULAR HEMOGLOBIN 28.6 pg (28-32); MEAN CORPUSCULAR HGB CONC 31.9 g/dL (31-35); MEAN CORPUSCULAR VOLUME 89.5 fL (81-99); MONOCYTES # (AUTO) 0.7 (0.2-0.8); MONOCYTES % 10.3 % (4.4-11.3); NEUTROPHILS # (AUTO) 3.5 (2.1-6.9); NEUTROPHILS % 55.1 % (38.7-80.0); PLATELET COUNT 341 x10e3/uL (140-360); RED BLOOD COUNT 2.87 x10e6/uL (3.6-5.1); RED CELL DISTRIBUTION WIDTH 15.5 % (11.7-14.4)
[2019-10-21] MEDS: TIZANIDINE HCL 4 MG TAB PO SCH ×4 (06:19→23:22)
[2019-10-21 06:36] LABS: ALANINE AMINOTRANSFERASE 8 IU/L (0-55); ALBUMIN 2.2 g/dL (3.5-5.0); ALBUMIN/GLOBULIN RATIO 0.8 (0.8-2.0); ALKALINE PHOSPHATASE 85 IU/L (40-150); ANION GAP 10.9 mmol/L (8-16); BLOOD UREA NITROGEN 10 mg/dL (7-26); BUN/CREATININE RATIO 13 (6-25); CALCIUM 7.5 mg/dL (8.4-10.2); CARBON DIOXIDE 21 mmol/L (22-29); CHLORIDE 110 mmol/L (98-107); EST GLOMERULAR FILTRATION RATE > 60 ML/MIN (60-); GLUCOSE 100 mg/dL (74-118); SODIUM 139 mmol/L (136-145)
[2019-10-21 06:40] LABS: POTASSIUM 2.9 mmol/L (3.5-5.1)
[2019-10-21] MEDS ORDERED: POTASSIUM CHLORIDE 20 MEQ TAB CR PO STA (06:43)
--- NOTE | 2019-10-21 06:45 | NUR ---
SPOKE TO DR NEWMAN ABOUT LOW POTASSIUM 2.9, NEW ORDER RECEIVED.
--- NOTE | 2019-10-21 09:04 | NUR ---
Patient resting in bed, Alert with no distress, refused to take morning medications now she said she will take little later. call light in reach
[2019-10-21] MEDS: TOLTERODINE TARTRATE 2 MG TAB PO SCH ×2 (10:52→18:23)
[2019-10-21] MEDS: PANTOPRAZOLE SOD 40 MG TABEC PO SCH (10:52)
[2019-10-21] MEDS: GABAPENTIN 300 MG CAP PO SCH ×2 (10:52→18:25)
[2019-10-21] MEDS: DULOXETINE HCL 20 MG DELAYED RELEASE PO SCH (10:52)
[2019-10-21] MEDS: METOPROLOL TARTRATE 25 MG TAB PO SCH ×2 (10:52→17:00)
[2019-10-21] MEDS: HEPARIN SOD (PORCINE) 5,000 UNIT/ML VIAL SC SCH ×2 (10:53→20:31)
[2019-10-21] MEDS: TOPIRAMATE 100 MG TAB PO SCH ×2 (10:53→18:25)
--- NOTE | 2019-10-21 11:41 | NUR ---
IM- progress note O/N see below ROS: unobtainable v/s; revd PE tired appearing anicteric ns1s2 mod bs soft nt nd chr leg changes skin dry flat affect a&ox3; Stage 3 ulcers on buttock and leg labs/meds; revd A/P: Diarrhea- IV flagyl UTI- IV ceftriaxone Hypokalemia- replace; recheck Acute rhabdomyolysis- IVF CHON- IVF Acute Metabolic Encephalopathy/Obtundation- narcan; limit narcotics Stage 3 B/L buttock ulcers- LWC; cefriaxone; Severe physical deconditing and Severe Debility- already set up with hospital bed; start PT here; Left leg DVT- AC - eliquis. 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 Basilio Portillo MD, PhD.
--- NOTE | 2019-10-21 12:40 | NUR ---
WAITING ON WOUND CARE NOTES TO BE ABLE TO FAX CLINICALS
[2019-10-21] MEDS: VENLAFAXINE HCL 37.5 MG TAB PO SCH ×2 (13:00→20:25)
--- NOTE | 2019-10-21 13:19 | NUR ---
WOUND CARE CONSULT FOR 58 YO FEMALE HX OF wound infection, morbid obesity [place] 15 ON MODERATE PUP STATUS AND INTERVENTIONS AND ALTERNATING PRESSURE MATTRESS LABS: WBC-6.32 HGB_8.2 GLUCOSE-100 SKIN ASSESSMENT COMPLETE PATIENT PRESENTS WITH BILATERAL POSTERIOR THIGH HEALING STAGE 3 ULCERATIONS AND BILATERAL SACRO GLUTEAL HEALING STAGE 3 ULCERATIONS MEASUREMENTS LISTED ON [facility] WOUND CARE ASSESSMENT FORM RECOMMENDATIONS: NURSING TO CONTINUE TO MAINTAIN MODERATE PUP STATUS AND INTERVENTIONS AND ALTERNATING PRESSURE MATTRESS NURSING TO CONTINUE TO ASSIST PATIENT OUT OF BED FOR MEALS AND MUCH TOLERATED NURSING TO CONTINUE TO ASSIST PATIENT NEEDED WITH MEALS AND NUTRITIONAL SUPPLEMENTS TO ENSURE PROPER REQUIREMENTS FOR HEALING NURSING TO CONTINUE TO OFFLOAD FEET AND HEELS NEEDED WITH PILLOW SUSPENSION WHEN IN BED NURSING TO CLEAN BILATERAL POSTERIOR THIGH HEALING STAGE 3 ULCERATIONS AND BILATERAL SACRO GLUTEAL HEALING STAGE 3 ULCERATIONS WITH NORMAL SALINE DAILY AND APPLY VENELEX COLLAGEN (FIBRACOL) AND COVER WITH ALLEVYN FOAM DRESSING Addendum: 10/21/19 at 1326 by Dustin Peoples RN Amended: Links added.
--- NOTE | 2019-10-21 13:21 | NUR ---
PT HAS 27 DAYS SNF AVAILABLE, SHE IS NOT ALLOWED TO RETURN TO [facility], NOTIFIED DR NEWMAN OF THIS INFORMATION.
[2019-10-21] MEDS: HYDROCODONE/APAP 5MG-325MG TAB PO PRN ×2 (14:02→20:28)
[2019-10-21] MEDS: ONDANSETRON HCL INJ 2MG/ML 2ML 2 MG/ML VIAL IV PRN ×2 (14:05→20:27)
--- NOTE | 2019-10-21 16:00 | NUR ---
FAXED CLINICALS AFTER SPEAKING WITH PT TO [facility]. WAS NOTIFIED BY [facility] THAT THERE IS AN OPEN CASE FROM [facility] THAT IS PROHIBITING THE PT FROM BEING ADMITTED FROM 12/05/2016. WENT TO PT ROOM AND WAS ON PHONE WITH HER AND JUDITH FOR 1HR AND 30 MINS TO RESOLVE THIS ISSUE. WAS TOLD BY M[facility] THAT IT CAN TAKE 48 HR TO 7 DAYS TO EMAIL AND HARD COPY MAIL OUT THE STATEMENT. NOTIFIED DR NEWMAN. WAITING ON LETTER TO BE ABLE TO GET PT TRANSFERRED TO SNF.
[2019-10-21] MEDS: METRONIDAZOLE 500MG/NS 100ML 100 ML IV SCH (19:01)
--- NOTE | 2019-10-21 19:10 | NUR ---
RECEIVED BEDSIDE SHIFT REPORT FROM PREVIOUS NURSE. CALL LIGHT WITHIN REACH. PATIENT IN BED.
[2019-10-22] VITALS: BP 124/64
[2019-10-22] MEDS: AZTREONAM (AZACTAM) 0.5 GM in SODIUM CHLORIDE 0.9% 50ML 50 ML IV SCH ×3 (01:31→18:00)
[2019-10-22] MEDS: METRONIDAZOLE 500MG/NS 100ML 100 ML IV SCH ×3 (02:20→18:00)
[2019-10-22] MEDS: SODIUM CHLORIDE 0.9% 1000ML 1,000 ML IV SCH ×3 (02:30→10:30)
[2019-10-22 04:00] VITALS: BP 127/65
[2019-10-22] MEDS: ONDANSETRON HCL INJ 2MG/ML 2ML 2 MG/ML VIAL IV PRN (05:47)
[2019-10-22] MEDS: TIZANIDINE HCL 4 MG TAB PO SCH ×2 (05:48→12:47)
--- NOTE | 2019-10-22 07:10 | NUR ---
Received patient lying in bed with eyes open. Respiration even and unlabored without SOB. Call light in reach.
[2019-10-22] MEDS: VENLAFAXINE HCL 37.5 MG TAB PO SCH (07:42)
[2019-10-22] MEDS: TOLTERODINE TARTRATE 2 MG TAB PO SCH (07:42)
[2019-10-22] MEDS: TOPIRAMATE 100 MG TAB PO SCH (07:42)
[2019-10-22] MEDS: METOPROLOL TARTRATE 25 MG TAB PO SCH (07:42)
[2019-10-22] MEDS: PANTOPRAZOLE SOD 40 MG TABEC PO SCH (07:42)
[2019-10-22] MEDS: HEPARIN SOD (PORCINE) 5,000 UNIT/ML VIAL SC SCH (07:43)
[2019-10-22] MEDS: HYDROCODONE/APAP 5MG-325MG TAB PO PRN ×2 (07:44→15:58)
--- NOTE | 2019-10-22 07:44 | NUR ---
GAVE BEDSIDE SHIFT REPORT TO ONCOMING NURSE. CALL LIGHT WITHIN REACH. PATIENT IN BED.
[2019-10-22] MEDS: GABAPENTIN 300 MG CAP PO SCH (07:45)
[2019-10-22 07:46] VITALS: BP 136/75
[2019-10-22] MEDS ORDERED: DULOXETINE HCL 30 MG DELAYED RELEASE PO SCH (09:00)
[2019-10-22 09:13] VITALS: BP 136/75
--- NOTE | 2019-10-22 10:05 | NUR ---
PT DENIED AT [facility], SHE HAS DEFERRED PHYSICAL THERAPY SO THEY WILL NOT ACCEPT HER. LET DR NEWMAN KNOW AND UPDATED CM. PT TO GO HOME WITH HOME HEALTH. GAVE IMM AND LET KNOW HER MEDICARE RIGHTS FILED IN CHART
[2019-10-22 11:55] VITALS: BP 133/69
--- NOTE | 2019-10-22 12:34 | NUR ---
IM- progress note O/N see below ROS: unobtainable v/s; revd PE tired appearing anicteric ns1s2 mod bs soft nt nd chr leg changes skin dry flat affect a&ox3; Stage 3 ulcers on buttock and leg labs/meds; revd A/P: Diarrhea- IV flagyl UTI- IV ceftriaxone Hypokalemia- replace; recheck Acute rhabdomyolysis- IVF CHON- IVF Acute Metabolic Encephalopathy/Obtundation- narcan; limit narcotics Stage 3 B/L buttock ulcers- LWC; cefriaxone; Severe physical deconditing and Severe Debility- already set up with hospital bed; start PT here; Left leg DVT- AC - eliquis. CKD3 due to HTN- f/u labs Moderate anemia- follow; check anemia panel Chr back pain- prn pain meds Constipation- bowel reg Severe Obesity - needs caloric restriction outpt BMI 48- as above Prop: pepcid on AC dispo: SNF eval 10-20 Hypokalemia- replace and recheck; CHON- improving; Depressed- start venlafaxine; add cymbalta for Right arm paresthesia- CT yesterday was normal; cont PT; d/c planning. 10-21 continue care; K better; d/c home with HH/PT. diarrhea is resolving with flagyl; right arm numbness now better; CT brain negative; d/c planning; Basilio Portillo MD, PhD.
[2019-10-22] MEDS ORDERED: FLAGYL500 MG PO (13:48)
[2019-10-22] MEDS ORDERED: VIBRAMYCIN100 MG PO (13:48)
--- NOTE | 2019-10-22 13:50 | NUR ---
D/C summary Principal Dx: Diarrhea- IV flagyl UTI- IV ceftriaxone Hypokalemia- replace; recheck Acute rhabdomyolysis- IVF CHON- IVF Acute Metabolic Encephalopathy/Obtundation- narcan; limit narcotics Secondary Dx: Stage 3 B/L buttock ulcers- LWC; cefriaxone; Severe physical deconditing and Severe Debility- already set up with hospital bed; start PT here; Left leg DVT- AC - eliquis. CKD3 due to HTN- f/u labs Moderate anemia- follow; check anemia panel Chr back pain- prn pain meds Constipation- bowel reg Severe Obesity - needs caloric restriction outpt BMI 48- as above Prop: pepcid on AC dispo: SNF eval 10-20 Hypokalemia- replace and recheck; CHON- improving; Depressed- start venlafaxine; add cymbalta for Right arm paresthesia- CT yesterday was normal; co nt PT; d/c planning. 10-21 continue care; K better; d/c home with HH/PT. diarrhea is resolving with flagyl; right arm numbness now better; CT brain negative; d/c planning; d/c home with PT/HH stable d/c>35mins f/u pcp 2-4 days Basilio Portillo MD, PhD.
--- NOTE | 2019-10-22 13:53 | NUR ---
NOTIFIED APS WORKER NISHA [phone] PT IS GOING HOME WITH HOME HEALTH, FAXED CLINICALS TO [facility] TO REINSTATE. PT READY TO DISCHARGE.
[2019-10-22] MEDS ORDERED: ONDANSETRON HCL 4 MG ORAL DISINTEGRATING TAB PO PRN (14:15)
--- NOTE | 2019-10-22 14:47 | NUR ---
Notified Dr. Portillo patient's Potassium level.
--- NOTE | 2019-10-22 16:30 | NUR ---
PIV to right FA discontinued, catheter tip intact, no bleeding noted. Discharge education provided and discharge packet given. Patient is advised to drink plenty of fluids, take PO antibiotics as ordered, and follow-up with PCP in 2-3 days as ordered. Verbalized understanding. Bilateral sacrogluteal wounds dressing changed. Awaiting for transportation. Call light in reach.
[2019-10-22 16:31] VITALS: BP 130/73
--- NOTE | 2019-10-22 19:18 | NUR ---
Transported patient via Ambulance stretcher with all personal belongings taken.
--- NOTE | 2019-10-22 20:54 | NUR ---
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 CONFIRMATION # [id number].
== END 2019-10-22 19:14 | disposition home health service (06) | DRG 592 ==
LOC: ER 20:18 → ERHOLD 10-20 02:41 → MED/SURG2 10-20 12:34
PROVIDERS: ADMIT Internal Medicine; ATTEND Internal Medicine
DX: L89.323 Pressure ulcer of left buttock, stage 3 (principal); G93.41 Metabolic encephalopathy; N39.0 Urinary tract infection, site not specified; M62.82 Rhabdomyolysis; N17.9 Acute kidney failure, unspecified; Z68.42 Body mass index [BMI] 45.0-49.9, adult; R19.7 Diarrhea, unspecified; L89.313 Pressure ulcer of right buttock, stage 3; L89.150 Pressure ulcer of sacral region, unstageable; L08.9 Local infection of the skin and subcutaneous tissue, unspecified; Z87.440 Personal history of urinary (tract) infections; M54.9 Dorsalgia, unspecified; I12.9 Hypertensive chronic kidney disease with stage 1 through stage 4 chronic kidney disease, or unspecified chronic kidney disease; N18.3 Chronic kidney disease, stage 3 (moderate); E66.01 Morbid (severe) obesity due to excess calories; L89.612 Pressure ulcer of right heel, stage 2; Z98.84 Bariatric surgery status; Z90.49 Acquired absence of other specified parts of digestive tract; Z09 Encounter for follow-up examination after completed treatment for conditions other than malignant neoplasm; Z86.718 Personal history of other venous thrombosis and embolism; E87.6 Hypokalemia; R53.81 Other malaise; D64.9 Anemia, unspecified; K59.00 Constipation, unspecified; R20.2 Paresthesia of skin; Z11.59 Encounter for screening for other viral diseases
CPT/HCPCS: 36415; 70450; 71045; 74177; 80053; 81001; 82150; 82550; 82553; 82948; 83605; 83690; 84132; 84484; 85025; 85610; 85730; 87040; 87086; 87635; 93005; 97139; 99251; 99284; J1200; J1644; J1956; J2310; J2405; J3370; J7030; J7040; Q9967